=== PATIENT | female | born 1955 | race Caucasian/White ===

== ENCOUNTER → 2018-06-18 | Outpatient (CLI) | payer OTHER ==
[~2018-06-18] MED LIST: ALBIPROI; ALBU.083IS; ALBU90OI; ASPI81EC; CEPH500; CITA20 PO; DIVA500EC; DOCU100 PO; FLUSAL2505; FROV2.5; HYDACE5 PO; HYDMOR4 PO; Hair, Skin & N1 EACH PO; IBUP600 PO; LANS30EC; LORA1 PO; MONT10T; MONT10T PO; NAPR500 PO; Norco 5-325 Ta1 EACH PO; OMEP10ER; OMEP20ER PO; OXYACE5T; OXYACE5T PO; PANT40 PO; PENVK500; PROM25 PO; RANI150; RXHYDACE PO; THYR60; TOPI100 PO; VERA120ER PO; [UNRECOGNIZED DRUG - OTHER]
[2018-06-20 09:19] LABS: HPV 16 Negative (Negative); HPV 18 Negative (Negative); HPV OTHER HR TYPES Negative (Negative)
== END ==
LOC: LAB SHORT 09:48 → LAB SRC 09:48
PROVIDERS: Nurse Practitioner Family
DX: Z01.419 Encounter for gynecological examination (general) (routine) without abnormal findings (principal)
CPT/HCPCS: 87624; G0123

== ENCOUNTER 2018-08-20 23:08 | Emergency (ER) | payer OTHER ==
[~2018-08-20] VITALS: Ht 177.8 cm; Wt 61.2 kg
[2018-08-21] MEDS ORDERED: ALBU90OI INH (05:40)
== END 2018-08-21 00:15 | disposition left against medical advice (07) ==
LOC: ER 23:08
DX: R10.31 Right lower quadrant pain (principal); Z88.8 Allergy status to other drugs, medicaments and biological substances; Z79.899 Other long term (current) drug therapy; J44.9 Chronic obstructive pulmonary disease, unspecified; G43.909 Migraine, unspecified, not intractable, without status migrainosus; F17.290 Nicotine dependence, other tobacco product, uncomplicated
CPT/HCPCS: 93005; 93010; 99284-25; J7030; J7120

== ENCOUNTER 2018-08-21 01:39 | Inpatient (IN) | payer OTHER ==
[~2018-08-21] VITALS: Ht 177.8 cm; Wt 64.7 kg
[2018-08-21 02:45] LABS: BASOPHILS ABSOLUTE AUTO 0.01 K/mm3 (0.00-0.23); BASOPHILS PERCENT AUTO 0 % (0-2); Hematocrit 47.2 % (33.0-51.0); LYMPHOCYTES ABSOLUTE AUTO 0.52 K/mm3 (0.84-5.20); LYMPHOCYTES PERCENT AUTO 14 % (21-46); MONOCYTES ABSOLUTE AUTO 0.35 K/mm3 (0.16-1.47); MONOCYTES PERCENT AUTO 10 % (4-13); Mean Corpuscular HGB 31.8 pg (26.0-34.0); Mean Corpuscular HGB Conc 31.8 g/dL (31.5-36.5); Mean Corpuscular Volume 100 fL (80-100); Mean Platelet Volume 10.2 fL (9.1-12.4); Platelet Count 379 K/mm3 (150-400); RDW Coefficient Variation 11.9 % (11.7-14.2); RDW Standard Deviation 43.8 fL (35.1-46.3); Red Blood Cell Count 4.72 M/mm3 (3.80-5.20)
[2018-08-21 02:48] LABS: EOSINOPHILS PERCENT AUTO 0 % (0-6); IMMATURE GRAN ABSOLUTE AUTO 0.01 K/mm3 (0.00-0.10); IMMATURE GRAN PERCENT AUTO 0 % (0-1); NEUTROPHILS ABSOLUTE AUTO 2.71 K/mm3 (1.96-9.15); NEUTROPHILS PERCENT AUTO 75 % (41-73)
[2018-08-21 03:00] LABS: Albumin, Blood 3.2 g/dL (3.4-5.0); Bilirubin, Total 0.4 mg/dL (0.1-1.0); Bun/Creatinine Ratio 12.9 (12.0-20.0); Calcium, Blood 8.7 mg/dL (8.5-10.1); Creatinine, Blood 1.01 mg/dL (0.40-1.00); Globulin, Blood 3.2 g/dL (2.2-4.0); Potassium, Blood 3.7 mmol/L (3.5-5.5); Total Protein, Blood 6.4 g/dL (6.4-8.2)
[2018-08-21 03:04] LABS: BAND PERCENT MAN 20 % (0-8); BASOPHILS PERCENT MAN 0 % (0-2); EOSINOPHILS PERCENT MAN 0 % (0-6); LYMPHOCYTES PERCENT MAN 25 % (21-46); METAMYELOCYTE ABSOLUTE MAN 0.03 K/mm3 (0.00-0.00); METAMYELOCYTE PERCENT MAN 1 % (0-0); MONOCYTES ABSOLUTE MAN 0.28 K/mm3 (0.16-1.47); MONOCYTES PERCENT MAN 8 % (4-13); NEUTROPHILS ABSOLUTE MAN 2.37 K/mm3 (1.96-9.15); SEG NEUTROPHILS PERCENT MAN 46 % (41-73); TOTAL CELLS COUNTED 100
[2018-08-21 03:12] LABS: Source, Urine Clean Catch
[2018-08-21 03:14] LABS: Bilirubin, Urine Neg (Neg); Blood, Urine Neg (Neg); Glucose Qualitative, Urine Neg (Neg); Ketones, Urine Neg (Neg); Leukocyte Esterase, Urine 1+ (Neg); Nitrite, Urine Neg (Neg); Protein, Urine Neg (Neg); Specific Gravity, Urine 1.015 (1.003-1.022); Urobilinogen, Urine NORM (Normal)
[2018-08-21 03:16] LABS: Appearance, Urine Clear (Clear); Color, Urine Yellow (P-Yellow)
[2018-08-21 03:19] LABS: Bacteria Many /hpf; Red Blood Cells, Urine 0-2 /hpf (0-2); Squamous Epithelial Cells Rare /hpf (Few)
[2018-08-21 03:24] LABS: U Amphetamine Screen Not Detected; U Barbituate Screen Not Detected; U Benzodiazapine Screen Not Detected; U Buprenorphine Screen Not Detected; U Cannabinoids Screen Not Detected; U Cocaine Screen Not Detected; U Methadone Screen Not Detected; U Methamphetamine Screen Not Detected; U Opiates Screen Not Detected; U Oxycodone Screen Not Detected; U Phencyclidine Screen Not Detected; U Propoxyphene Screen Not Detected
[2018-08-21] MEDS ORDERED: ALBU90OI INH (05:40)
--- NOTE | 2018-08-21 06:02 | NUR ---
PT ARRIVED TO ICU 15 AT 0500 FROM ER VIA [facility]. PT SCOOTS SELF TO BED FROM [facility]. PT IS TACHYPNEIC. SATS IN THE 90'S ON 2LNC. DUSKY T/O BUT PT APPEARS POOR KEMPT WELL WITH DIRT ALL OVER HANDS. C/O 10/10 ABD PAIN. CANNOT HEAR BT'S. LS COARSE T/O, PT IS 1 PACK/DAY SMOKER. PT IS POOR HISTORIAN AT THE MOMENT DUE TO PAIN. WILL NOT ANSWER ALL QUESTIONS BUT DID STATE NAME AND . DR. JIMENEZ CONSULTED THIS AM SURGERY CONSULT.
--- NOTE | 2018-08-21 07:45 | NUR ---
RECEIVED REPORT FROM JESU GAY AND ASSUMED CARE OF PATIENT. PT IS TACHYPENIC AND SHALLOW BREATHING AT THIS TIME, B/P IS TRENDING DOWN, CURRENTLY 90/59. PT IS CRYING OUT IN PAIN. SURGICAL CALLED AND STATED SHE IS NEXT TO GO BACK, SO HOLDING OFF GIVING FENTYNAL. CALLED DR. JIMENEZ TO REPORT B/P CHANGES, HE STATED THAT HE WANTS A LITER LR BOLUS GIVEN. STARTED BOLUS. NC 2 LPM WITH O2 SAT 96%. PT STATES SHE CANNOT BREATHE, CALLED RT FOR BREATHING TREATEMENT. WILL CONTINUE TO MONITOR FOR TRANSFER TO SURGERY.
--- NOTE | 2018-08-21 08:00 | NUR ---
RECEIVED REPORT AND ASSUMED CARE OF PATIENT. HE IS INTUBATED AND SEDATED AT THIS TIME. PROPOFOL AT 30 MCK/KG/MIN AND PRECEDEX AT 0.7 MC/KG/HOUR. NSR IN 80'S AND B/P STABLE AT THIS TIME. VENT SETTINGS AT: 16/450/5/80%. ZAYAS CATH PATENT AND DRAINING TO GRAVITY. LR RUNNING AT 150ML/HOUR
--- NOTE | 2018-08-21 09:10 | NUR ---
PATIENT TAKEN TO OR BY DR. QUINTANA AND OR STAFF. NC WITH 2 LPM O2. LR RUNNING AT 150ML/HR. ZAYAS IN PLACE DRAINING TO GRAVITY. VITALS STABLE UPON DEPARTURE.
--- NOTE | 2018-08-21 09:53 | NUR ---
08/21/18 0953 Miranda De Leon PT HAD CENTRAL LINE PLACED PRIOR TO OR, X-RAY FOLLOWED. CATHETER IN PLACE PRIOR TO LEAVING ICU. PT. TRANSPORTED VIA BED TO OR. INTUBATED FOLLOWING ARRIVAL TO OR.
--- NOTE | 2018-08-21 09:57 | NUR ---
DR RODRIGUEZ IN TO PLACE CENTRAL LINE AROUND 8:15 FOR HYPOTENSIONS AND POTENTIAL FOR PRESSORS. CENTRAL LINE PLACED TO LEFT IJ, VERIFIED BY X-RAY AT BEDSIDE BY DR. RODRIGUEZ.
--- NOTE | 2018-08-21 11:29 | NUR ---
PT BACK TO UNIT WITH DR. QUINTANA AND OR STAFF. ACCEPTED PATIENT AND ASSUMED CARE. TEMP 99.7 UNDER ARMPIT. STARTED LEVOPHED TITRATED FOR AFFECT, CURRENTLY RUNNINNG AT 12 MCG/MIN. PT INTUBATED VENT SETTINGS ON AC: 14/460/5/FIO2 40% RR AT 14, O2 SAT 97%. NG TUBE IN PLACE TO LEFT NARES TO LOW-INTERMITTENT WALL SUCTION. MIDLINE ABDOMINAL INCISION TO WOUND-VAC, OSTOMY TO RIGHT UPPPER QUADRANT BEEFY RED APPEARANCE. PT REMAINS PARALYZED FROM ANETHESIA, WILL ASSESS WHEN PT AROUSES.
[2018-08-21 12:03] LABS: PCO2 Arterial 55.3 mmHg (35-45); PO2 Arterial 89.2 mmHg (80-100)
[2018-08-21 12:04] LABS: pH Blood Arterial 7.12 (7.35-7.45)
--- NOTE | 2018-08-21 12:29 | NUR ---
RT NENITA IN ROOM TO ADVANCE ET TUBE, ADVANE TO 24 CM AT THE LIP.
--- NOTE | 2018-08-21 13:00 | NUR ---
HYPOTENSIVE EVENT: DR RODRIGUEZ AT BEDSIDE PT HAS BEEN HYPOTENSIVE WITH SYSTOLIC PRESSURES IN 70-80'S. PROPOFOL ON STANDBY AND LEVOPHED CURRENTLY AT 20 MCG/MIN. BOLUS OF [address] RODRIGUEZ USING ULTRASOUND AT BEDSIDE TO VISUALIZE HEART. HR IS CURRENTLY AT 129, BP 84/58. AWAITING VASOPRESSIN FROM PHARMACY. ORDERED TO START VASOPRESSIN AND ADD EPI IF NEEDED. REQUESTED THAT WE CHECK ABDOMINAL PRESSURE IF URINE OUTPUT IS 0 THE REST OF THE SHIFT. WILL CONTINUE TO MONITOR.
[2018-08-21 13:26] LABS: Hematocrit 46.4 % (33.0-51.0); Mean Corpuscular HGB 31.5 pg (26.0-34.0); Mean Corpuscular HGB Conc 30.2 g/dL (31.5-36.5); Mean Platelet Volume 10.2 fL (9.1-12.4); Platelet Count 316 K/mm3 (150-400); RDW Standard Deviation 46.2 fL (35.1-46.3); Red Blood Cell Count 4.44 M/mm3 (3.80-5.20); White Blood Cell Count 6.53 K/mm3 (4.00-11.30)
[2018-08-21 13:33] LABS: PCO2 Arterial 48.6 mmHg (35-45); PO2 Arterial 137 mmHg (80-100)
[2018-08-21 13:38] LABS: Mean Corpuscular Volume 105 fL (80-100)
[2018-08-21 13:38] LABS: pH Blood Arterial 7.15 (7.35-7.45)
[2018-08-21 13:41] LABS: Magnesium, Blood 1.9 mg/dL (1.6-2.4); Troponin I 0.078 ng/mL (0.000-0.040)
[2018-08-21 13:45] LABS: Albumin/Globulin Ratio 0.8 (0.8-1.8); Bilirubin, Total 0.2 mg/dL (0.1-1.0); Calcium, Blood 7.2 mg/dL (8.5-10.1); Creatinine, Blood 1.33 mg/dL (0.40-1.00); Globulin, Blood 2.4 g/dL (2.2-4.0); Potassium, Blood 4.1 mmol/L (3.5-5.5)
[2018-08-21 13:46] LABS: Total Protein, Blood 4.4 g/dL (6.4-8.2)
[2018-08-21 14:11] LABS: BAND PERCENT MAN 20 % (0-8); BASOPHILS PERCENT MAN 0 % (0-2); EOSINOPHILS PERCENT MAN 0 % (0-6); LYMPHOCYTES ABSOLUTE MAN 0.58 K/mm3 (0.84-5.20); LYMPHOCYTES PERCENT MAN 9 % (21-46); METAMYELOCYTE ABSOLUTE MAN 1.24 K/mm3 (0.00-0.00); METAMYELOCYTE PERCENT MAN 19 % (0-0); MONOCYTES ABSOLUTE MAN 0.45 K/mm3 (0.16-1.47); MONOCYTES PERCENT MAN 7 % (4-13); MYELOCYTE ABSOLUTE MAN 0.91 K/mm3 (0.00-0.00); MYELOCYTE PERCENT MAN 14 % (0-0); NEUTROPHILS ABSOLUTE MAN 3.33 K/mm3 (1.96-9.15); SEG NEUTROPHILS PERCENT MAN 31 % (41-73); TOTAL CELLS COUNTED 100
[2018-08-21 16:56] LABS: Base Excess Venous 12.6 mmol/L; Bicarbonate Venous 14.9 mmol/L (24.0-30.0); PCO2 Venous 46 mmHg (38-42); PO2 Venous 61.9 mmHg (38-42); pH Blood Venous 7.16 (7.34-7.37)
--- NOTE | 2018-08-21 18:11 | NUR ---
SHIFT SUMMARY: PT IS CURRENTLY SEDATED WITH PROPOFOL 25 MCG/KG/MIN. PT IS REQUIRING FENTYNAL TO CONTROL PAIN ORDER FOR 25 MCG Q1HR NEEDED. PT IS INTUBATED, VENT SETTINGS ARE 22/460/5/FIO2 40%. PT HAS BEEN HYPOTENSIVE SINCE RETURN FROM OR, CURRENTLY RUNNING LEVOPHED @ 20MCG/MIN, AND VASOPRESSIN @ 2.4 ML/HR. NS-TKO AND BICARB @ 75 ML/HOUR. MID-LINE ABDOMINAL INCISION TO WOUNDVAC, NO OUTPUT IN CANISTER. COLOSTOMY BAG IN PLACE WITH NO OUTPUT, ILEOSTOMY APPEARS BEEFY RED. ZAYAS CATH IN PLACE DRAINING TO GRAVITY, HOWEVER, URINE OUTPUT HAS GREATLY DECREASED SINCE PATIENT RETURNED FROM OR. 50 ML URINE SINCE APPROXIMATELY 1100.
--- NOTE | 2018-08-21 21:02 | NUR ---
PT INTUBATED AND SEDATED WITH PROPOFOL. GAVE FENTANYL FOR PAIN. PT WAS PULLING LEGS UP IN BED AND WAS GAURDED WITH ABD. APPEARS COMFORTABLE NOW. TITRATING LEVOPHED. VASOPRESSIN ON WELL. BP IS IMPROVING AND OUTPUT IS IMPROVING. WOUND VAC TO MID-LEFT ABD WITH GOOD SEAL. NO OUTPUT YET. OSTOMY TO R ABD HAS SCANT AMT OF SANGUINOUS FLUID IN BAG. SON AT BEDSIDE NOW. DAUGHTER WENT HOME FOR THE NIGHT. OFFERING SUPPORT AND ANSWERING QUESTIONS PRN.
[2018-08-22 05:58] LABS: Hematocrit 36.4 % (33.0-51.0); Mean Corpuscular HGB 33.1 pg (26.0-34.0); Mean Platelet Volume 10.7 fL (9.1-12.4); Platelet Count 221 K/mm3 (150-400); RDW Standard Deviation 44.9 fL (35.1-46.3); Red Blood Cell Count 3.63 M/mm3 (3.80-5.20); White Blood Cell Count 15.68 K/mm3 (4.00-11.30)
[2018-08-22 05:59] LABS: Mean Corpuscular Volume 100 fL (80-100)
[2018-08-22 06:03] LABS: Albumin, Blood 1.6 g/dL (3.4-5.0); Albumin/Globulin Ratio 0.7 (0.8-1.8); Bilirubin, Total 0.3 mg/dL (0.1-1.0); Bun/Creatinine Ratio 21.4 (12.0-20.0); Creatinine, Blood 1.17 mg/dL (0.40-1.00); Globulin, Blood 2.4 g/dL (2.2-4.0); Phosphorus, Blood 3.9 mg/dL (2.5-4.9); Potassium, Blood 3.7 mmol/L (3.5-5.5)
[2018-08-22 06:06] LABS: BAND PERCENT MAN 30 % (0-8); BASOPHILS PERCENT MAN 0 % (0-2); EOSINOPHILS ABSOLUTE MAN 0.15 K/mm3 (0.00-0.68); EOSINOPHILS PERCENT MAN 1 % (0-6); LYMPHOCYTES ABSOLUTE MAN 1.72 K/mm3 (0.84-5.20); LYMPHOCYTES PERCENT MAN 11 % (21-46); METAMYELOCYTE ABSOLUTE MAN 0.47 K/mm3 (0.00-0.00); METAMYELOCYTE PERCENT MAN 3 % (0-0); MONOCYTES ABSOLUTE MAN 1.41 K/mm3 (0.16-1.47); MONOCYTES PERCENT MAN 9 % (4-13); MYELOCYTE ABSOLUTE MAN 0.15 K/mm3 (0.00-0.00); MYELOCYTE PERCENT MAN 1 % (0-0); NEUTROPHILS ABSOLUTE MAN 11.76 K/mm3 (1.96-9.15); SEG NEUTROPHILS PERCENT MAN 45 % (41-73); TOTAL CELLS COUNTED 100
--- NOTE | 2018-08-22 06:19 | NUR ---
SUMMARY PT INTUBATED AND SEDATED WITH PROPOFOL. PT WILL OPEN EYE'S AND NOD YES OR NO TO QUESTIONS. PURPOSFULLY MOVES HANDS TOWARDS ETT WHEN UNRESTRAINED. TITRATING LEVOPHED DOWN. WOUND VAC IN PLACE WITH GOOD SEAL. NO DRAINAGE FROM WOUND VAC. COLOSTOMY ONLY HAS SCANT AMT OF SANGUINOUS FLUID. HAS HAD TEMP WITH TMAX 102.0. GAVE TYLENOL, TOOK COVERS OFF, AND PLACED FAN AT BEDSIDE. UPDATED THE DAUGHTER YENNI THIS AM VIA PHONE.
--- NOTE | 2018-08-22 07:15 | NUR ---
START OF SHIFT NOTE: PATIENT CONTINUOUS ON MECHANICAL VENTILATION, ABLE TO OPEN EYES TO SPEECH AND FOLLOW SOME COMMANDS, PROPOFOL AT 35, BICARB INFUSING, WOUND VAC INTACT, MINIMAL AMOUNT OF DRAINAGE, OSTOMY ON RIGHT LOWER QUADRANT HAS NO DRAINAGE, ZAYAS CATHETER IN PLACE, PATIENT ALSO ON LEVOPHED AND VASOPRESSING, SBPs IN UPPER 90s AND 110s, ORAL CARE PROVIDED, RT IN TO SEE PATIENT, DR. SIMMONS IN TO SEE PATIENT, NO NEW ORDERS RECEIVED, WILL CONTINUE TO MONITOR.
--- NOTE | 2018-08-22 09:05 | NUR ---
CALLED DR. SIMMONS ABOUT PATIENT BEING ON DAILY TOPAMAX, DR. SIMMONS ASKED THIS RN TO CALL DR. JIMENEZ, AND CLARIFY IF IT IS OK TO GIVE TOPAMX CRUSHED VIA OG TUBE.
--- NOTE | 2018-08-22 09:37 | NUR ---
CALLED DR. JIMENEZ AND SPOKE WITH HIM ABOUT ADMINISTERING TOPAMAX SEIZURE MEDICATION VIA OG TUBE, DR. JIMENEZ STATED "THAT IS FINE, OK WITH ME", WILL ORDER TOPAMAX PER DR. SIMMONS'S VERBAL ORDER AND ADMINISTER CRUSHED VIA OG TUBE.
--- NOTE | 2018-08-22 13:08 | NUR ---
VASOPRESSIN TURNED OFF, LEVOPHED DOWN TO 2, SBPs ARE HOLDING IN 110s AND 120s, SON AT BEDSIDE UPDATE PROVIDED, WILL CONTINUE TO MONITOR.
--- NOTE | 2018-08-22 17:59 | NUR ---
SHIFT SUMMARY NOTE: PATIENT ON MECHANICAL VENTILATION, SETTINGS: 22/5 VT 460 AND FiO2 30 % SEDATED WITH PROPOFOL AT 40 MCG, ABLE TO OPEN EYES AND MOVE EXTREMITIES, TRYING TO MOUTH WORDS, ABLE TO FOLLOW SOME COMMANDS, ZAYAS CATHETER IN PLACE DRAINING ADEQUATE AMOUNTS OF DARK YELLOW URINE, WOUND VAC IN PLACE, NO DRAINAGE, OSTOMY ON RLQ, NO OUTPUT YET, PATIENT HAS NG TUBE DRAINING SMALL AMOUNT OF BROWNISH LIQUID, NGT WAS CLAMPED FOR 30 MINUTES AFTER ADMINISTERING 200 MG OF TOPAMAX, OK TO GIVE VIA NG TUBE PER DR. JIMENEZ, SON AND DAUGHTER AT BEDSIDE, UPDATES PROVIDED, FOR DETAILS SEE SHIFT ASSESSMENT DOCUMENTATION, WILL CONTINUE TO MONITOR AND GIVE REPORT TO ONCOMING MACHINE CARTON MARKER.
--- NOTE | 2018-08-22 19:15 | NUR ---
ASSUMED CARE ASSUMED CARE OF PATIENT. REMAINS INTUBATED- AC 22, TB 460, PEEP 5, FIO2 30%. RESP RATE 22-25. SEDATED WITH PROPOFOL @ 50MCG/KG/MIN. OPENS EYES TO STIMULI. MOVES ALL EXTREMITIES SPONTANEOUSLY AND FOLLOWS SOME SIMPLE COMMANDS. BILATERAL SOFT WRIST RESTRAINTS IN PLACE TO PREVENT SELF-EXTUBATION. TITO, 2MM, SLIGHTLY SLUGGISH. FACIAL GRIMACING NOTED AND PT APPEARS RESTLESS- WILL TREAT PAIN/DISCOMFORT PER ORDER. MONITOR SHOWS NSR-ST, RATE 95-100s. LEFT NARE NG TO LIS WITH SMALL AMOUNT BROWNISH-GREE DRAINAGE. COLOSTOMY NOTED TO RIGHT ABDOMEN WITH SCANT SEROSANGUINOUS DRAINAGE. STOMA IS PINKISH-BROWN IN COLOR. MID-LINE ABDOMINAL INCISION WITH WOUND VAC IN PLACE. ZAYAS PATENT- DRAINING CLEAR YELLOW URINE. PAS TO BLE. D5 WITH 3AMPS BICARB INFUSING AT 100CC/HR PER ORDER. NS TKO. DAUGHTER AT BEDSIDE. SEE SHIFT ASSESSMENT FOR FULL ASSESSMENT.
--- NOTE | 2018-08-22 21:00 | NUR ---
HYPOTENSION BP 82/48(58). PROPOFOL DECREASED TO 40MCG/KG/MIN AT THIS TIME.
--- NOTE | 2018-08-22 21:30 | NUR ---
BP BP 80/52(60). LEVOPHED RESTARTED @ 2MCG/MIN AT THIS TIME.
--- NOTE | 2018-08-23 | NUR ---
ASSUMED CARE REPORT FROM TRISH NAILS. PT INTUBATED AND SEDATED CURRENT VENT SETTINGS OF AC22/460/30%/5 AND SEDATION VIA PROPOFOL. LEVOPHED RESTARTED AT 2130 D/T MAP <60, CURRENTLY AT 4MCG/MIN. WOUND VAC TO MIDLINE INCISION PRESENT, OSOMY SITE IS A BROWNISH-PINK COLOR AND BAG HAS A SMALL AMOUNT OF CLEAR YELLOW FLUID PRESENT. PROPOFOL AT 40MCG/KG/MIN, BICARB GTT AT 100ML/HR. PLAN FOR SBT IN AM.
[2018-08-23 04:11] LABS: Hematocrit 32.2 % (33.0-51.0); Mean Corpuscular HGB 32.7 pg (26.0-34.0); Mean Corpuscular HGB Conc 34.2 g/dL (31.5-36.5); Mean Platelet Volume 10.5 fL (9.1-12.4); Platelet Count 177 K/mm3 (150-400); RDW Coefficient Variation 11.9 % (11.7-14.2); RDW Standard Deviation 42.3 fL (35.1-46.3); Red Blood Cell Count 3.36 M/mm3 (3.80-5.20); White Blood Cell Count 15.67 K/mm3 (4.00-11.30)
[2018-08-23 04:13] LABS: Mean Corpuscular Volume 96 fL (80-100)
[2018-08-23 04:30] LABS: Alanine Aminotransfer (ALT/SGP 21 U/L (12-78); Albumin, Blood 1.5 g/dL (3.4-5.0); Albumin/Globulin Ratio 0.5 (0.8-1.8); Alk Phos 58 U/L (50-136); Anion Gap 6 mmol/L (6-16); Aspartate Aminotrans (AST/SGOT 43 U/L (12-37); Bilirubin, Total 0.3 mg/dL (0.1-1.0); Blood Urea Nitrogen 20 mg/dL (8-24); Bun/Creatinine Ratio 21.7 (12.0-20.0); CO2, Blood 33 mmol/L (21-32); Calcium, Blood 7.2 mg/dL (8.5-10.1); Chloride, Blood 101 mmol/L (98-108); Creatinine, Blood 0.92 mg/dL (0.40-1.00); Glomerular Filtration Rate >60 (60-); Glucose, Blood 102 mg/dL (70-99); Magnesium, Blood 2.1 mg/dL (1.6-2.4); Phosphorus, Blood 2.6 mg/dL (2.5-4.9); Potassium, Blood 2.9 mmol/L (3.5-5.5); Sodium, Blood 140 mmol/L (136-145); Total Protein, Blood 4.5 g/dL (6.4-8.2)
[2018-08-23 04:32] LABS: BAND PERCENT MAN 26 % (0-8); BASOPHILS PERCENT MAN 0 % (0-2); EOSINOPHILS PERCENT MAN 0 % (0-6); LYMPHOCYTES ABSOLUTE MAN 0.62 K/mm3 (0.84-5.20); LYMPHOCYTES PERCENT MAN 4 % (21-46); METAMYELOCYTE ABSOLUTE MAN 0.31 K/mm3 (0.00-0.00); METAMYELOCYTE PERCENT MAN 2 % (0-0); MONOCYTES ABSOLUTE MAN 1.09 K/mm3 (0.16-1.47); MONOCYTES PERCENT MAN 7 % (4-13); NEUTROPHILS ABSOLUTE MAN 13.63 K/mm3 (1.96-9.15); SEG NEUTROPHILS PERCENT MAN 61 % (41-73); TOTAL CELLS COUNTED 100
--- NOTE | 2018-08-23 04:53 | NUR ---
SBT/SEDATION VACATION PROPOFOL AND LEVOPHED TITRATED TO OFF POST FENTANYL ADMINISTRATION IN ANTICIPATION OF SBT. PT TOLERATING BUT HAS MADE ATTEMPTS TO SIT UP AND GRAB SUCTION TUBING OR ETT TUBING. PLAN TO RESEDATE ONCE COMPLETE DUE TO ANXIETY.
[2018-08-23 05:04] LABS: PCO2 Arterial 41.7 mmHg (35-45); PO2 Arterial 72.2 mmHg (80-100); pH Blood Arterial 7.52 (7.35-7.45)
[2018-08-23 05:40] LABS: Base Excess Venous 11.8 mmol/L; PCO2 Venous 42.6 mmHg (38-42); PO2 Venous 35.9 mmHg (38-42); pH Blood Venous 7.52 (7.34-7.37)
--- NOTE | 2018-08-23 06:31 | NUR ---
SHIFT SUMMARY PT REMAINS INTUBATED, NO CHANGE TO PREVIOUS SETTINGS. PROPOFOL RESUMED AT 35MCG/KG/MIN AND LEVOPHED REMAINS OFF POST SBT. CALL PLACED POST LABS TO DR RODRIGUEZ AND BICARB GTT STOPPED AND KCL PENDING. NG REMAINS TO LIS, UOP >1000 FOR SHIFT.
--- NOTE | 2018-08-23 08:00 | NUR ---
RECEIVED REPORT AND ASSUMED CARE OF PATIENT. SHE IS INTUBATED AND SEDATED AT THIS TIME. VENT SETTINGS ARE 22/460/5/30%. PROPOFOL CONTINUING AT 35 MCG/KG/MIN. WOUND VAC IS RUNNING AND NO DRAINAGE NOTED IN PUMP. COLOSTOMY BAG HAS SCANT AMOUNT OF BROWNISH FLUID. COLOR OF ILEOSTOMY IS GRAYISH BROWN IN COLOR. MADE DR SIMMONS, DR. RODRIGUEZ AWARE SEE PRIOR NOTE ON THIS ISSUE. PT IS RESPONSIVE TO PAINFUL STIMULUS AND IS UNCOMFORTABLE, USED FENTYNAL TO TREAT PAIN.
--- NOTE | 2018-08-23 08:27 | NUR ---
DR SIMMONS IN TO SEE THE PATIENT. INFORMED HIM OF CONCERNS WITH OSTOMY SITE LOOKING GRAYISH BROWN IN COLOR. HE AGREED AND CONTACTED DR. JIMENEZ WITH CONCERNS. DR JIMENEZ STATES HE WILL BE IN TO SEE PATIENT.
--- NOTE | 2018-08-23 08:40 | NUR ---
DR RODRIGUEZ IN TO SEE PATIENT, MADE AWARE OF OSTOMY COLOR AND CONCERNS. DISCUSSED POC SHE IS GOING TO WAIT TO CONSIDER EXTUBATING UNTIL SURGICAL CONCERNS ARE ADDRESSED. CHANGED RR TO 16 ON VENT.
--- NOTE | 2018-08-23 11:24 | NUR ---
AFTER MEDICATION ADMINISTRATION, NG TURNED BACK TO LOW-INT SUCTION. LARGE VOLUME NOTED IN TUBING, TURNED TO LOW-CONTINUOUS SUCTION. IMMEDIATE RETURN OF 250 ML DARK GREEN LIQUID. LIQUID NOTED TO TURN TO DARK RED. PLACED BACK ON LOW-INTERMITTENT SUCTION. PLAN TO DISCUSS WITH DR. JIMENEZ.
--- NOTE | 2018-08-23 13:00 | NUR ---
CALLED DR JIMENEZ TO MAKE AWARE OF INCREASED GI OUTPUT TO NG TUBE AND DISCUSS THE ILLEOSTOMY SITE. HE STATED HE WILL ROUND ON HER THIS AFTERNOON.
[2018-08-23 14:04] LABS: Base Excess Venous 7.3 mmol/L; Bicarbonate Venous 30.6 mmol/L (24.0-30.0); PCO2 Venous 38.9 mmHg (38-42); PO2 Venous 70.2 mmHg (38-42)
--- NOTE | 2018-08-23 14:33 | NUR ---
DR JIMENEZ IN TO SEE PATIENT. HE STATES THAT THE ILEOSTOMY LOOKS OKAY, HE SAID THAT HE THINKS THE TOP LAYER OF TISSUE WILL SLOUGH OFF AND LEAVE HEALTHY SKIN. HE ASKED FOR TPN TO BE STARTED.
[2018-08-23 14:45] LABS: Vancomycin, Trough 7.1 ug/mL (5.0-10.0)
[2018-08-23 14:46] LABS: Anion Gap 6 mmol/L (6-16); Blood Urea Nitrogen 17 mg/dL (8-24); Bun/Creatinine Ratio 19.8 (12.0-20.0); CO2, Blood 30 mmol/L (21-32); Calcium, Blood 7.6 mg/dL (8.5-10.1); Chloride, Blood 105 mmol/L (98-108); Creatinine, Blood 0.86 mg/dL (0.40-1.00); Glomerular Filtration Rate >60 (60-); Glucose, Blood 73 mg/dL (70-99); Potassium, Blood 3.1 mmol/L (3.5-5.5); Sodium, Blood 141 mmol/L (136-145)
--- NOTE | 2018-08-23 18:16 | NUR ---
SHIFT SUMMARY: PT HAS CONTINUED TO BE SEDATED AND INTUBATED THROUGHOUT THE SHIFT. PROPOFOL CURRENTLY AT 35 MCG/KG/MIN. VENT SETTINGS: AC: 15/460/5/30% PT RESPONDEDING WELL TO FENTYNAL DRIP, CURRENTLY RUNNING AT 25 MCG/HOUR. DAUGHTER AT BEDSIDE DURING THE DAY. WILL CONTINUE TO MONITOR AND GIVE REPORT TO GAYATHRI NAILS.
--- NOTE | 2018-08-24 00:40 | NUR ---
RESTLESSNESS: PT GREW INCREASINGLY RESTLESS OVER PAST HOUR. PT REPOSITIONED, SUCTIONED, AND ORAL CARE PROVIDED. PT CONTINUED WITH STACKED BREATHS AND TRYING TO REACH UP TO TUBE WITH HANDS. PT MEDICATED WITH FENTNYL 25mcg IVP AND PROPOFOL INCREASED TO 40mcg/kg/min. WILL CONTINUE TO MONITOR.
--- NOTE | 2018-08-24 02:13 | NUR ---
HOSPITALIST: NOTIFIED RE: HYPOTENSION AND INCREASED SEDATION. UPDATED ON FLUID INTAKE AND I&O. NEW ORDER FOR NS 250 mL BOLUS. IF HYPOTENSION CONTINUES NOTIFY FUEL CELL REPAIRER.
--- NOTE | 2018-08-24 03:04 | NUR ---
RESPOND WELL TO FLUID BOLUS: PT GIVEN NS 250mL BOLUS. BP NOW LOW 100'S/60. PT MORE RELAXED ON PROPOFOL AT 40mcg AND FENTANYL REMAINING AT 25mcg. WILL CONTINUE TO MONITOR.
[2018-08-24 03:39] LABS: Base Excess Venous 5.8 mmol/L; Bicarbonate Venous 29.4 mmol/L (24.0-30.0); PCO2 Venous 36.2 mmHg (38-42); PO2 Venous 91.6 mmHg (38-42); pH Blood Venous 7.51 (7.34-7.37)
[2018-08-24 03:44] LABS: Hematocrit 28.6 % (33.0-51.0); Hemoglobin 9.4 g/dL (11.5-16.0); Mean Corpuscular HGB 32.5 pg (26.0-34.0); Mean Corpuscular HGB Conc 32.9 g/dL (31.5-36.5); Mean Platelet Volume 11.1 fL (9.1-12.4); Platelet Count 183 K/mm3 (150-400); RDW Coefficient Variation 12.4 % (11.7-14.2); RDW Standard Deviation 45.1 fL (35.1-46.3); Red Blood Cell Count 2.89 M/mm3 (3.80-5.20); White Blood Cell Count 17.22 K/mm3 (4.00-11.30)
[2018-08-24 03:46] LABS: Mean Corpuscular Volume 99 fL (80-100)
[2018-08-24 04:01] LABS: Anion Gap 4 mmol/L (6-16); BAND PERCENT MAN 12 % (0-8); BASOPHILS PERCENT MAN 0 % (0-2); Blood Urea Nitrogen 18 mg/dL (8-24); CO2, Blood 30 mmol/L (21-32); Calcium, Blood 7.5 mg/dL (8.5-10.1); Chloride, Blood 109 mmol/L (98-108); Creatinine, Blood 0.78 mg/dL (0.40-1.00); EOSINOPHILS PERCENT MAN 0 % (0-6); Glomerular Filtration Rate >60 (60-); Glucose, Blood 120 mg/dL (70-99); LYMPHOCYTES ABSOLUTE MAN 0.86 K/mm3 (0.84-5.20); LYMPHOCYTES PERCENT MAN 5 % (21-46); MONOCYTES ABSOLUTE MAN 0.68 K/mm3 (0.16-1.47); MONOCYTES PERCENT MAN 4 % (4-13); Magnesium, Blood 2.1 mg/dL (1.6-2.4); NEUTROPHILS ABSOLUTE MAN 15.67 K/mm3 (1.96-9.15); Phosphorus, Blood 1.8 mg/dL (2.5-4.9); Potassium, Blood 3.4 mmol/L (3.5-5.5); SEG NEUTROPHILS PERCENT MAN 79 % (41-73); Sodium, Blood 143 mmol/L (136-145); TOTAL CELLS COUNTED 100; Triglycerides 125 mg/dL (30-160)
--- NOTE | 2018-08-24 04:22 | NUR ---
SEDATION OFF AT 0408. PT NODDED HEAD YES WHEN EXPLAINED. PT TOLERATING WELL THUS FAR.
--- NOTE | 2018-08-24 04:28 | NUR ---
RT AT BEDSIDE FOR SEDATION VACATION AND BREATHING TRIAL.
--- NOTE | 2018-08-24 05:01 | NUR ---
BREATHING TRIAL COMPLETED AT 0450. PT TOLERATED WELL BUT FINISHED BY FLIPPING OFF THE RT WITH HER MIDDLE FINGER.
--- NOTE | 2018-08-24 07:30 | NUR ---
RECEIVED REPORT AND ASSUMED CARE OF PATIENT. PT IS INTUBATED AND SEDATED AT THIS TIME. PROPOFOL RUNNING AT 40 MCG/KG/MIN. FENT DRIP CONTINUES AT 12.5 MCG/HR. VENT SETTINGS ARE: 15/460/5/30% RR 17.
--- NOTE | 2018-08-24 19:43 | NUR ---
CHANGE OF SHIFT: BEDSIDE REPORT FROM BORA RN AND FANG NAILS. NENITA RT AT BEDSIDE FOR ROUTINE ROUNDING. VENT SETTINGS REMAIN 15; 460; PEEP 5.0; AND 30%. PT VSS AND APPEARS COMFORTABLE SEDATED WITH PROPOFOL AND FENTANYL. PT MOVING ALL EXTREMITIES LIGHTLY IF PURPOSEFUL TURNING SELF. PT WITH KNEES UP AND FEET RESTING ON MATTRESS. SKIN PWD. ANGELIQUE. LS (SEE FULL ASSESSMENT). COLOSTOMY AND WOUND VAC UNCHANGED FROM PREVIOUS NOC SHIFT. WILL CONTINUE TO MONITOR, TURN Q2 C/ RESTRAINT ASSESSMENT.
--- NOTE | 2018-08-25 03:59 | NUR ---
BREATHING TRIAL STARTED NOW.
[2018-08-25 04:30] LABS: BASOPHILS ABSOLUTE AUTO 0.03 K/mm3 (0.00-0.23); BASOPHILS PERCENT AUTO 0 % (0-2); Hematocrit 26.9 % (33.0-51.0); Hemoglobin 8.5 g/dL (11.5-16.0); LYMPHOCYTES ABSOLUTE AUTO 1.13 K/mm3 (0.84-5.20); LYMPHOCYTES PERCENT AUTO 8 % (21-46); MONOCYTES ABSOLUTE AUTO 1.05 K/mm3 (0.16-1.47); MONOCYTES PERCENT AUTO 7 % (4-13); Mean Corpuscular HGB 32.1 pg (26.0-34.0); Mean Corpuscular HGB Conc 31.6 g/dL (31.5-36.5); Platelet Count 177 K/mm3 (150-400); RDW Standard Deviation 48.8 fL (35.1-46.3); Red Blood Cell Count 2.65 M/mm3 (3.80-5.20); White Blood Cell Count 14.35 K/mm3 (4.00-11.30)
[2018-08-25 04:32] LABS: EOSINOPHILS ABSOLUTE AUTO 0.01 K/mm3 (0.00-0.68); EOSINOPHILS PERCENT AUTO 0 % (0-6); IMMATURE GRAN ABSOLUTE AUTO 0.08 K/mm3 (0.00-0.10); IMMATURE GRAN PERCENT AUTO 1 % (0-1); Mean Corpuscular Volume 102 fL (80-100); NEUTROPHILS ABSOLUTE AUTO 12.05 K/mm3 (1.96-9.15); NEUTROPHILS PERCENT AUTO 84 % (41-73)
--- NOTE | 2018-08-25 04:32 | NUR ---
PT AWAKE. POINTED TO EYES NODDING YES TO WEAR HER GLASSES. PT TRYING TO USE PICTURE BOARD TO COMMUNICATE BUT NOT ABLE TO. PT NODDED WHEN ASKED IF WANTS TUBE OUT. PT NODDED TO PAIN. FENTANYL GTT CONTINUES TO INFUSE BUT ONLY AT 12.5mcg/hr. BREATHING TRIAL ENDING. WILL RESUME SEDATION WITH PROPOFOL.
[2018-08-25 04:44] LABS: PCO2 Arterial 44.8 mmHg (35-45); PO2 Arterial 52.2 mmHg (80-100); pH Blood Arterial 7.44 (7.35-7.45)
--- NOTE | 2018-08-25 04:50 | NUR ---
PT CONTINUING TO SLEEP. VSS. CIWA <4 AT THIS TIME.
[2018-08-25 04:56] LABS: Alanine Aminotransfer (ALT/SGP 27 U/L (12-78); Albumin, Blood 1.4 g/dL (3.4-5.0); Albumin/Globulin Ratio 0.4 (0.8-1.8); Alk Phos 80 U/L (50-136); Anion Gap 6 mmol/L (6-16); Aspartate Aminotrans (AST/SGOT 31 U/L (12-37); Bilirubin, Total 0.3 mg/dL (0.1-1.0); Blood Urea Nitrogen 15 mg/dL (8-24); Bun/Creatinine Ratio 21.9 (12.0-20.0); CO2, Blood 30 mmol/L (21-32); Calcium, Blood 7.8 mg/dL (8.5-10.1); Chloride, Blood 113 mmol/L (98-108); Creatinine, Blood 0.68 mg/dL (0.40-1.00); Globulin, Blood 3.5 g/dL (2.2-4.0); Glomerular Filtration Rate >60 (60-); Glucose, Blood 107 mg/dL (70-99); Magnesium, Blood 2.1 mg/dL (1.6-2.4); Phosphorus, Blood 2.4 mg/dL (2.5-4.9); Potassium, Blood 3.4 mmol/L (3.5-5.5); Sodium, Blood 149 mmol/L (136-145); Total Protein, Blood 4.9 g/dL (6.4-8.2)
--- NOTE | 2018-08-25 09:57 | NUR ---
DR. PRATIK CHRISTIE ROUNDED ON PT. UPDATED ON NG OUTPUT, PT CONDITION. DR KIRBY CONTINUE WITH CURRENT CARE FROM SURGICAL STANDPOINT, NO NEW ORDERS AT THIS TIME. STATES OSTOMY LOOKS GOOD.
--- NOTE | 2018-08-25 10:25 | NUR ---
RECEIVED REPORT AND ASSUMED CARE OF PATIENT. PT IS INTUBATED AND SEDATED AT THIS TIME PROPOFOL WAS RUNNING AT 30 MCG/KG/MIN WHEN FIRST CAME ON SHIFT, HOWEVER SHE BEGAN TO GET INCREASINGLY RESTLESS, INCREASED PROPOFOL TO 35 MCG/KG/MIN. FENTYNAL DRIP RUNNING AT 25 MCG/HR AT THIS TIME. VENT SETTINGS: 15/460/5/30%, RR 15. PT VERY REACTIVE TO PAINFUL STIMULI WITH CARE, GAVE A FENYTNAL PUSH TO ADDRESS BREAKTHROUGH PAIN.
--- NOTE | 2018-08-25 11:35 | NUR ---
SET UP SAFE SET FOR BLOOD DRAWS.
[2018-08-25 13:20] LABS: Magnesium, Blood 1.8 mg/dL (1.6-2.4); Phosphorus, Blood 3.1 mg/dL (2.5-4.9); Potassium, Blood 3.6 mmol/L (3.5-5.5)
[2018-08-25 13:22] LABS: Hemoglobin 8.5 g/dL (11.5-16.0)
--- NOTE | 2018-08-25 18:23 | NUR ---
SHIFT SUMMARY PATIENT CONTINUES TO BE INTUBATED AND SEDATED THROUGHOUT THE SHIFT. PROPOFOL RUNNING AT 40 MCG/KG/MIN, FENTYNAL DRIP CONTINUES AT 25 MCG/HOUR. PT HAS REQUIRED ADDITIONAL FENTYNAL PUSHES FOR BREAKTHROUGH PAIN DURING THIS SHIFT. VENT SETTINGS ARE 15/460/5/30% RR BETWEEN 15-25'S. DAUGHTER AT BEDSIDE FOR PART OF THE DAY. WILL CONTINUE TO MONITOR AND GIVE REPORT TO GAYATHRI RN.
--- NOTE | 2018-08-25 18:29 | NUR ---
WHEN DRAINING COLOSTOMY BAG NOTICED DEVICE WAS PULLING UP FROM PATIENT SKIN. REMOVED THE DEVICE AND CLEANED AROUND STOMA CAREFULLY WITH WARM WATER AND SOFT CLOTHS. REMOVED DRIED BLOOD AND MUCOUS FROM AROUND STOMA. STOMA COLOR HAS IMPROVED TO BRIGHT RED. NEW DEVICE PLACED OVER STOMA AND COLOSTOMY BAG ATTACHED.
--- NOTE | 2018-08-25 19:33 | NUR ---
BEDSIDE REPORT FROM BORA RN. PT LYING WITH EYES HALF OPEN. PT OPENS HAND TOWARDS THIS RN. PT COMMUNICATING WITH YES AND NO QUESTIONS. PT NODDED, "YES" TO HAVING PAIN AND NODDED TO PAIN BEING IN HER BACK AND STOMACH. PT SHOOK HEAD TO BEING IN AN UNCOMFORTABLE POSITION. VSS. LS CLEAR. PT MEDICATED WITH FENTANYL 25mcg IVP AND FENTANYL gtt INCREASED TO 37.5mcg/hr. CURRENTLY PT LYING WITH EYES CLOSED HR DOWN TO 95 FROM 101, SATS 100%, BP STABLE. SEE CHART FOR FURTHER ASSESSMENT. WILL CONTINUE TO MONITOR.
[2018-08-26 03:48] LABS: BASOPHILS ABSOLUTE AUTO 0.02 K/mm3 (0.00-0.23); BASOPHILS PERCENT AUTO 0 % (0-2); EOSINOPHILS ABSOLUTE AUTO 0.06 K/mm3 (0.00-0.68); EOSINOPHILS PERCENT AUTO 1 % (0-6); Hematocrit 27.5 % (33.0-51.0); Hemoglobin 8.5 g/dL (11.5-16.0); Mean Corpuscular HGB 32.3 pg (26.0-34.0); Mean Corpuscular HGB Conc 30.9 g/dL (31.5-36.5); Mean Platelet Volume 10.2 fL (9.1-12.4); Platelet Count 189 K/mm3 (150-400); RDW Coefficient Variation 13.5 % (11.7-14.2); RDW Standard Deviation 51.5 fL (35.1-46.3); Red Blood Cell Count 2.63 M/mm3 (3.80-5.20); White Blood Cell Count 8.91 K/mm3 (4.00-11.30)
[2018-08-26 03:52] LABS: IMMATURE GRAN PERCENT AUTO 2 % (0-1); LYMPHOCYTES ABSOLUTE AUTO 1.65 K/mm3 (0.84-5.20); LYMPHOCYTES PERCENT AUTO 19 % (21-46); MONOCYTES ABSOLUTE AUTO 0.92 K/mm3 (0.16-1.47); MONOCYTES PERCENT AUTO 10 % (4-13); Mean Corpuscular Volume 105 fL (80-100); NEUTROPHILS ABSOLUTE AUTO 6.06 K/mm3 (1.96-9.15); NEUTROPHILS PERCENT AUTO 68 % (41-73)
[2018-08-26 04:03] LABS: Anion Gap 7 mmol/L (6-16); Blood Urea Nitrogen 18 mg/dL (8-24); Bun/Creatinine Ratio 28.1 (12.0-20.0); CO2, Blood 27 mmol/L (21-32); Calcium, Blood 7.7 mg/dL (8.5-10.1); Chloride, Blood 118 mmol/L (98-108); Creatinine, Blood 0.64 mg/dL (0.40-1.00); Glomerular Filtration Rate >60 (60-); Glucose, Blood 91 mg/dL (70-99); Magnesium, Blood 2.1 mg/dL (1.6-2.4); Phosphorus, Blood 3.2 mg/dL (2.5-4.9); Potassium, Blood 3.6 mmol/L (3.5-5.5); Sodium, Blood 152 mmol/L (136-145)
[2018-08-26 04:06] LABS: BAND PERCENT MAN 1 % (0-8); BASOPHILS PERCENT MAN 0 % (0-2); EOSINOPHILS PERCENT MAN 0 % (0-6); LYMPHOCYTES PERCENT MAN 18 % (21-46); METAMYELOCYTE ABSOLUTE MAN 0.08 K/mm3 (0.00-0.00); METAMYELOCYTE PERCENT MAN 1 % (0-0); MONOCYTES ABSOLUTE MAN 1.06 K/mm3 (0.16-1.47); MONOCYTES PERCENT MAN 12 % (4-13); NEUTROPHILS ABSOLUTE MAN 6.14 K/mm3 (1.96-9.15); SEG NEUTROPHILS PERCENT MAN 68 % (41-73); TOTAL CELLS COUNTED 100
[2018-08-26 05:33] LABS: PCO2 Arterial 40.4 mmHg (35-45); PO2 Arterial 78.8 mmHg (80-100); pH Blood Arterial 7.42 (7.35-7.45)
--- NOTE | 2018-08-26 05:53 | NUR ---
SHIFT SUMMARY: PT REQUIRED AN INCREASE IN FENTANYL gtt THIS NOC SHIFT. AT THE START OF SHIFT PT COMMUNICATED THAT SHE WAS IN PAIN. WITH THE INCREASE IN FENTANYL AND PROPOFOL, PT RESTED QUIETLY T/O NOC WHEN NOT BEING DISTURBED. THIS AM PT REACHED OUT AND HELD THIS RN'S HAND WHILE BEING TOLD THAT HER DAUGHTER HAD JUST CALLED AND STATED WILL BE IN TO SEE HER ABOUT THREE O'CLOCK TODAY. PT ENCOURAGED TO DO WELL TODAY AND SHE HAD HARD WORK TO DO, PT WAS ENCOURAGE TO GET SOME REST TO WHICH PT SHOOK HER HEAD, "NO". PT A LITTLE AFTER FELL ASLEEP. VSS.
--- NOTE | 2018-08-26 05:59 | NUR ---
LATE ENTRY FOR 0000: PT LS CLEAR, VSS. PT WITH SATS 98-100% THIS NOC. PT RESTING QUIETLY BUT AROUSABLE.
--- NOTE | 2018-08-26 07:47 | NUR ---
ASSUMED CARE: REPORT RECEIVED FROM LISA Foley RN. ASSUMED CARE OF THIS PT AT APPROX 0700. ROUNDING COMPLETE, PT IS RESTING QUIETLY BUT AWAKENS TO VERBAL STIMULI, NODS TO ANSWER YES/NO QUESTIONS APPROPRIATELY. BILAT SOFT WRIST RESTRAINTS REMAIN ON TO PROTECT ETT & VITAL LINES. SEDATION VIA PROPOFOL CHARTED IN FLOWSHEET. PLAN IS FOR POSS EXTUBATION TODAY. WILL CONTINUE TO MONITOR & UPDATE NEEDED.
--- NOTE | 2018-08-26 12:28 | NUR ---
DR. RAPP: PROVIDER IN ROOM TO SEE PT, HE STS THAT WE ARE OKAY TO EXTUBATE THIS AFTERNOON. WILL PLACE SEDATION ON STANDBY & NOTIFY RT. WILL CONTINUE TO MONITOR & UPDATE NEEDED.
--- NOTE | 2018-08-26 13:13 | NUR ---
EXTUBATION: SHIRA, RT IN ROOM. PT EXTUBATED AT 1310, PLACED ON 3L NC. COLLINS WELL W/ O2 SATS > 92%. NG TUBE REMAINS IN PLACE FOR GASTRIC DECOMPRESSION & REST. WILL CONTINUE TO MONITOR & UPDATE NEEDED.
--- NOTE | 2018-08-26 14:07 | NUR ---
UPDATE / CALL TO DR. JIMENEZ: UPON RETURNING FROM [facility]UNCH, IT IS NOTED BY THIS RN THAT THE PT HAS REMOVED HER NG TUBE & NC. SHE IS CONFUSED, HOLDING BOTH ITEMS UP & STATING "SOMETHING HAPPENED, MY GLASSES BROKE." CALL TO DR. JIMENEZ TO INFORM HIM OF NGT REMOVAL. INFORMED HIM THAT SHE HAS HAD APPROX 200 ML OUTPUT THIS SHIFT & ASKED IF PLACING A NEW NGT WOULD BE NECESSARY. HE STS THERE IS NO NEED TO PLACE A NEW TUBE AT THIS TIME. WILL CALL PROVIDER AGAIN IF PT BECOMES NAUSEOUS OR BEGINS TO HAVE EMESIS. WILL CONTINUE TO MONITOR & UPDATE NEEDED.
--- NOTE | 2018-08-26 18:29 | NUR ---
SHIFT SUMMARY: NO ACUTE CHANGES SINCE EXTUBATION THIS AFTERNOON. PT A&O, BUT IS FORGETFUL & DISORIENTED AT TIMES. SHE IS PLEASANT & COOPERATIVE W/ CARE. SOME OF FORGETFULNESS R/T HX TBI ACCORDING TO PT's DAUGHTER. LS REMAIN CLEAR T/O, PT NOW ON RA W/ O2 SATS > 92%. NSR W/ HR 90-100s ON MONITOR, PT SLIGHTLY HYPERTENSIVE SINCE SEDATION BEING STOPPED. SHE REMAINS NPO, BUT INDICATED IN PRIOR UPDATE, NO LONGER HAS NGT IN PLACE. SHE HAS HAD NO C/O NAUSEA SINCE NGT REMOVAL. STOMA REMAINS PINK & MOIST, SCANT SS OUTPUT NOTED ON OSTOMY BAG. WOUND VAC TO MIDLINE ABD REMAINS PATENT. TEMP ZAYAS PATENT/DRAINING DARK YELLOW URINE. PT STS CHRONIC PAIN TO BACK IS EXACERBATED AT THIS TIME. FENTANYL DRIP INFUSING PER ORDERS. WILL CONTINUE TO MONITOR & REPORT OFF TO ONCOMING RN.
--- NOTE | 2018-08-26 19:30 | NUR ---
ASSUMED CARE- PT CURRENTLY ALERT AND ORIENTED TO SELF, EVENT, AND FOLLOWING DIRECTIONS. PT IS UNABLE TO RECALL SPECIFIC DATE, AND NAME OF FACILITY, BUT IS AWARE OF PROCESS OF EVENTS THAT LED HER TO BE IN THE HOSPITAL AND HAVE PROCEDURE. VSS. PT LYING IN BED, APPEARS TO BE RELAXED, TALKING AND LAUGHING WITH STAFF. CURRENTLY REPORTING PAIN TO ABDOMINAL AREA AND BACK THAT IS A 10/10, FENTANYL DRIP CURRENTLY INFUSING AT 37.5MCG/HR, NEW BAG TO BE HUNG WITH SECOND RN. LUNG SOUNDS CURRENTLY CLEAR IN ALL UPPER LOBES DIMINISHED IN THE BASES WITH FINE CRACKLES NOTED TO RLL. WEAK, MOIST COUGH NOTED OCCASIONALLY- PT ENCOURAGED TO SPLINT ABDOMEN WITH COUGHING- PT REPORTS THAT THIS HELPS WITH DISCOMFORT. PT EDUCATED OPTOMECHANICAL ENGINEER LIGHT USE AND GIVEN GLASSES PER REQUEST. WILL COMPLETE ASSESSMENT AND CONTINUE TO MONITOR. BED IN LOW POSITION, CALL LIGHT IN REACH.
--- NOTE | 2018-08-27 | NUR ---
PO FLUIDS REQUEST PT REQUESTING SIPS OF WATER. DISCUSSED PT STATUS WITH CHARGE NURSE AND PERFORMED PO CHALLENGE WITH THICKENED WATER. PT TOLERATED WELL. NO SIGNS OF ASPIRATION AND PT DENIED ANY NAUSEA OR PAIN WITH WATER. WILL CONTINUE TO MONITOR FOR ANY CHANGES TO PATIENT STATUS. BED IN LOW POSITION, CALL LIGHT IN REACH.
[2018-08-27 04:32] LABS: BASOPHILS ABSOLUTE AUTO 0.03 K/mm3 (0.00-0.23); BASOPHILS PERCENT AUTO 0 % (0-2); EOSINOPHILS ABSOLUTE AUTO 0.15 K/mm3 (0.00-0.68); EOSINOPHILS PERCENT AUTO 1 % (0-6); Hematocrit 26.7 % (33.0-51.0); Hemoglobin 8.4 g/dL (11.5-16.0); IMMATURE GRAN ABSOLUTE AUTO 0.47 K/mm3 (0.00-0.10); IMMATURE GRAN PERCENT AUTO 4 % (0-1); LYMPHOCYTES ABSOLUTE AUTO 1.88 K/mm3 (0.84-5.20); LYMPHOCYTES PERCENT AUTO 15 % (21-46); MONOCYTES ABSOLUTE AUTO 1.01 K/mm3 (0.16-1.47); MONOCYTES PERCENT AUTO 8 % (4-13); Mean Corpuscular HGB 32.1 pg (26.0-34.0); Mean Corpuscular HGB Conc 31.5 g/dL (31.5-36.5); NEUTROPHILS ABSOLUTE AUTO 8.67 K/mm3 (1.96-9.15); NEUTROPHILS PERCENT AUTO 71 % (41-73); Platelet Count 229 K/mm3 (150-400); RDW Coefficient Variation 13.4 % (11.7-14.2); RDW Standard Deviation 49.9 fL (35.1-46.3); Red Blood Cell Count 2.62 M/mm3 (3.80-5.20); White Blood Cell Count 12.21 K/mm3 (4.00-11.30)
[2018-08-27 04:33] LABS: Mean Corpuscular Volume 102 fL (80-100)
[2018-08-27 04:46] LABS: Albumin, Blood 1.5 g/dL (3.4-5.0); Anion Gap 8 mmol/L (6-16); Blood Urea Nitrogen 17 mg/dL (8-24); Bun/Creatinine Ratio 25.9 (12.0-20.0); CO2, Blood 23 mmol/L (21-32); Calcium, Blood 7.3 mg/dL (8.5-10.1); Chloride, Blood 115 mmol/L (98-108); Creatinine, Blood 0.66 mg/dL (0.40-1.00); Glomerular Filtration Rate >60 (60-); Glucose, Blood 162 mg/dL (70-99); Phosphorus, Blood 3.3 mg/dL (2.5-4.9); Potassium, Blood 3.8 mmol/L (3.5-5.5); Sodium, Blood 146 mmol/L (136-145)
--- NOTE | 2018-08-27 06:22 | NUR ---
SHIFT SUMMARY- PT HAS REMAINED AOX4 WITH INTERMITTENT FORGETFULLNESS OR DISORIENTATION, WHICH SHE STATES IS "NORMAL FOR HER BECAUSE OF HER TBI". VSS. VERY PLEASANT AND COOPERATIVE WITH CARE. PT HAS RESTED THROUGHOUT MOST OF THE NIGHT, WAKING EASILY FOR CARE AND TURNING. FENTANYL DRIP CONTINUES TO INFUSE AT 37.5MCG/HR FOR PAIN MANAGEMENT- PT HAS MAINTAINED CNVI SCALE OF 3 OR LESS THROUGHOUT SHIFT. HAS DENIED NAUSEA THROUGHOUT SHIFT AND TOLERATED SIPS OF WATER WELL PER HER REQUEST. STOMA HAS REMAINED UNCHANGED THROUGHOUT THE NIGHT, STILL IS PINK, SMALL AMOUNT OF DARK BROWN, LIQUID STOOL THIS AM. WOUND VAC AND DRESSING REMAIN INTACT, NO SWELLING NOTED, ABDOMEN HAS REMAINED SOFT WITH TENDERNESS ON PALPATION. NO OTHER CHANGES NOTED THROUGHOUT THE SHIFT. WILL CONTINUE TO MONITOR AND REPORT TO ONCOMING RN. BED IN LOW POSITION, CALL LIGHT IN REACH.
--- NOTE | 2018-08-27 07:10 | NUR ---
FENTANYL DRIP VERIFIED REMAINING FLUID AMOUNT IN FENTANYL DRIP WITH ONCOMING NOLBERTO NAILS. PT HAS APPROXIMATELY 40 ML REMAINING IN BAG WITH 200 ML HAVING INFUSED SINCE ADMINISTRATION. DRIP CONTINUES TO INFUSE AT 37.5 MCG/HR OR 18.8 ML/HR AT THIS TIME. REPORT GIVEN TO ONCGERRY NAILS.
--- NOTE | 2018-08-27 09:00 | NUR ---
PT AWAKE, ALERT, AND ORIENTED. WATCHING TV, USING CALL LIGHT APPROPRIATELY. WHEN ASKED ABOUT PAIN, C/O PAIN 04/22. CNVI 08/17. ABD MILDLY TENDER TO PALPATION. HYPOACTIVE BT'S T/O. DR JIMENEZ IN; OKAY TO START CLEAR LIQUID DIET. SURGICAL FLOOR STATUS. PT TOLERATED SIPS OF WATER AND ICE WELL. FENT GTT AT 37.5MCG, 25MCG GIVEN FOR BREAKTHROUGH PAIN. STOMA BEEFY RED, BILE TO ILEOSTOMY BAG; SMALL AMT. MIDLINE INCISION TO SURGICAL WOUND VAC/C/D/I.
--- NOTE | 2018-08-27 11:15 | NUR ---
FENT IV GTT DC'D AT 1110. TRUONG SAWYER WITNESSED 96.3 CC CLEARED FROM PUMP, AND 10CC WASTED FROM IV LINE (BAG WAS DRY WHEN DC'D). PT AND I ASSISTED PT UP TO CHAIR WITH WALKER AND SBA, PT TOLERATED VERY WELL. ZAYAS DC'D W/O DIFFICULTY. PT TO GO TO ROOM 233. DR SIMMONS IN TO SEE PT WELL DR BARBARA CLARK THIS AM
--- NOTE | 2018-08-27 18:35 | NUR ---
SHIFT SUMMARY PT TRANSFERED TO UNIT FROM ICU THIS SHIFT. PT HAD ONE EPISODE OF DARK GREEN BILE EMESIS SINCE ARRIVAL-MEDICATED WITH 4MG ZOFRAN. MEDICATED WITH 50MCG FENTANYL TWICE FOR ABDOMINAL PAIN. ILEOSTOMY DRAINING SMALL AMOUNT OF BILE COLORED LIQUID-STOMA MOIST AND PINK.CPN RUNNING IN L IJ. TOLERATING SMALL AMOUNT OF CLEAR LIQUIDS.
--- NOTE | 2018-08-27 18:46 | NUR ---
Patient gave verbal consent to allowing myself to care for her.
[2018-08-28 05:20] LABS: BASOPHILS ABSOLUTE AUTO 0.04 K/mm3 (0.00-0.23); BASOPHILS PERCENT AUTO 0 % (0-2); EOSINOPHILS ABSOLUTE AUTO 0.09 K/mm3 (0.00-0.68); EOSINOPHILS PERCENT AUTO 1 % (0-6); Hematocrit 30.8 % (33.0-51.0); IMMATURE GRAN ABSOLUTE AUTO 0.59 K/mm3 (0.00-0.10); IMMATURE GRAN PERCENT AUTO 3 % (0-1); LYMPHOCYTES ABSOLUTE AUTO 1.28 K/mm3 (0.84-5.20); LYMPHOCYTES PERCENT AUTO 7 % (21-46); MONOCYTES ABSOLUTE AUTO 0.92 K/mm3 (0.16-1.47); MONOCYTES PERCENT AUTO 5 % (4-13); Mean Corpuscular HGB 32.4 pg (26.0-34.0); Mean Corpuscular HGB Conc 32.5 g/dL (31.5-36.5); Mean Corpuscular Volume 100 fL (80-100); Mean Platelet Volume 10.2 fL (9.1-12.4); NEUTROPHILS PERCENT AUTO 84 % (41-73); Platelet Count 308 K/mm3 (150-400); RDW Coefficient Variation 12.9 % (11.7-14.2); RDW Standard Deviation 46.9 fL (35.1-46.3); Red Blood Cell Count 3.09 M/mm3 (3.80-5.20); White Blood Cell Count 18.32 K/mm3 (4.00-11.30)
[2018-08-28 06:00] LABS: Albumin, Blood 1.7 g/dL (3.4-5.0); Anion Gap 7 mmol/L (6-16); Blood Urea Nitrogen 21 mg/dL (8-24); Bun/Creatinine Ratio 34.7 (12.0-20.0); CO2, Blood 22 mmol/L (21-32); Calcium, Blood 7.6 mg/dL (8.5-10.1); Chloride, Blood 112 mmol/L (98-108); Creatinine, Blood 0.61 mg/dL (0.40-1.00); Glomerular Filtration Rate >60 (60-); Glucose, Blood 125 mg/dL (70-99); Phosphorus, Blood 3.4 mg/dL (2.5-4.9); Potassium, Blood 3.5 mmol/L (3.5-5.5); Sodium, Blood 141 mmol/L (136-145)
--- NOTE | 2018-08-28 14:46 | NUR ---
PT'S BOTTOM BLOCHY WHEN GOT UP TO STANDING POSITION. ENCOURAGE REPOSITION
--- NOTE | 2018-08-28 15:07 | NUR ---
SUMMARY TURNING OVER CARE TO JESU HOLLOWAY. PT HAS BEEN OUT OF BED AND TO CHAIR TWICE TODAY. WEAK BUT ABLE TO STAND AND SIDE STEP TO CHAIR. URINE DARK BROWNISH YELLOW. HAD EPISODE OF 400 ML GREEN EMESIS. OSTOMY PUTTING OUT GREEN FLUID. FEBRILE. MEDICATED PER ORDERS W/TYLENOL. IV FLUIDS INFUSING W/O DIFFICULTY. CALL LIGHT IN REACH.
--- NOTE | 2018-08-28 17:37 | NUR ---
NOTE PT HAS RESTED IN BED SINCE TAKING OVER CARE. DENIED N/V. DENIES NEEDS.
--- NOTE | 2018-08-28 18:08 | NUR ---
EMESIS AFTER PATIENT TRIED 2-3 BITES OF EVERYTHING ON FULL LIQUID DINNER TRAY, PT VOMITED 500 MLS. DISCUSSED WITH PATIENT TO ONLY TAKE IN WATER TONIGHT AND CLEAR LQS.
[2018-08-29 04:21] LABS: Source, Urine Clean Catch
[2018-08-29 04:24] LABS: Bilirubin, Urine Neg (Neg); Blood, Urine Neg (Neg); Glucose Qualitative, Urine Neg (Neg); Ketones, Urine Neg (Neg); Leukocyte Esterase, Urine 1+ (Neg); Nitrite, Urine Neg (Neg); Protein, Urine 2+ (Neg); Urobilinogen, Urine NORM (Normal)
[2018-08-29 04:28] LABS: Appearance, Urine Clear (Clear); Color, Urine Amber (P-Yellow)
[2018-08-29 04:31] LABS: Bacteria Rare /hpf; Red Blood Cells, Urine Not Seen /hpf (0-2); Squamous Epithelial Cells Not Seen /hpf (Few)
[2018-08-29 04:58] LABS: BASOPHILS ABSOLUTE AUTO 0.03 K/mm3 (0.00-0.23); BASOPHILS PERCENT AUTO 0 % (0-2); EOSINOPHILS ABSOLUTE AUTO 0.06 K/mm3 (0.00-0.68); EOSINOPHILS PERCENT AUTO 0 % (0-6); Hemoglobin 10.1 g/dL (11.5-16.0); IMMATURE GRAN ABSOLUTE AUTO 0.54 K/mm3 (0.00-0.10); IMMATURE GRAN PERCENT AUTO 3 % (0-1); LYMPHOCYTES ABSOLUTE AUTO 0.96 K/mm3 (0.84-5.20); LYMPHOCYTES PERCENT AUTO 5 % (21-46); MONOCYTES ABSOLUTE AUTO 0.96 K/mm3 (0.16-1.47); MONOCYTES PERCENT AUTO 5 % (4-13); Mean Corpuscular HGB 32.1 pg (26.0-34.0); Mean Corpuscular HGB Conc 31.6 g/dL (31.5-36.5); Mean Corpuscular Volume 102 fL (80-100); Mean Platelet Volume 9.8 fL (9.1-12.4); NEUTROPHILS ABSOLUTE AUTO 15.89 K/mm3 (1.96-9.15); NEUTROPHILS PERCENT AUTO 86 % (41-73); Platelet Count 385 K/mm3 (150-400); RDW Coefficient Variation 12.6 % (11.7-14.2); RDW Standard Deviation 47.6 fL (35.1-46.3); Red Blood Cell Count 3.15 M/mm3 (3.80-5.20); White Blood Cell Count 18.44 K/mm3 (4.00-11.30)
[2018-08-29 05:22] LABS: Albumin, Blood 1.7 g/dL (3.4-5.0); Anion Gap 10 mmol/L (6-16); Blood Urea Nitrogen 20 mg/dL (8-24); Bun/Creatinine Ratio 30.8 (12.0-20.0); CO2, Blood 20 mmol/L (21-32); Calcium, Blood 7.7 mg/dL (8.5-10.1); Chloride, Blood 111 mmol/L (98-108); Creatinine, Blood 0.65 mg/dL (0.40-1.00); Glomerular Filtration Rate >60 (60-); Glucose, Blood 101 mg/dL (70-99); Phosphorus, Blood 2.8 mg/dL (2.5-4.9); Potassium, Blood 3.4 mmol/L (3.5-5.5); Sodium, Blood 141 mmol/L (136-145)
--- NOTE | 2018-08-29 06:51 | NUR ---
SUMMARY PTS AFEBRILE THIS SHIFT. FREQUENT REEMINDING AND ENCURAGEMENT TO CDB AND USE I.S. PT WITH LOOSE COUGH. SOUNDS PRODUCITVE BUT NOTHING OUT AND PT DENIES SWALLOWING MUCUS.PT HAS NEBS PRN. TOLERATES OOB TO BSC WITH 1 ASSIST. PT IS WEAK/DECONDITIONED. PT WITH RARE C/O NAUSEA. MOSTLY WITH IV PAIN MEDS. PT SLEEPING OFF AND ON.PT FORGETFUL AT TIMES DURING THE NIGHT.KNEW SHE HAD SURGERY, BUT FORGOT SHE HAD OSTOMY. OSOMY WITH ONLY SCANT FLUID IN BAG TONIGHT.
--- NOTE | 2018-08-29 10:06 | NUR ---
PERMISSION FOR CARE PT GAVE THIS THREAD MACHINE OPERATOR PERMISSION TO CARE FOR HER ON AUGUST 29, 2018
--- NOTE | 2018-08-29 11:50 | NUR ---
PT REFUSED TO WORK W/THERAPY AND REFUSED LUNCH TRAY
--- NOTE | 2018-08-29 17:22 | NUR ---
SUMMARY PT NOT FEELING WELL. HAD ONE EPISODE OF EMESIS THIS AM. MEDICATED PER ORDERS FOR NAUSEA. REFUSED LUNCH TRAY. REFUSED THERAPY. AMBULATED TO RESTROOM ONCE DURING SHIFT. SAT UP SHORT TIME IN CHAIR. NOW RESTING W/LIGHT OFF. CALL LIGHT IN REACH. PLAN FOR CT OF ABD TOMORROW.
--- NOTE | 2018-08-29 20:32 | NUR ---
INTAKE: CALLED R/T PT POOR PO INTAKE AND ONGOING N/V. PT I/O AND LABS REV W/ONCALL HOSPITALIST ONI. NEW ORDER FOR IVF AND BMP LABS IN AM REC.
[2018-08-30 07:15] LABS: Anion Gap 8 mmol/L (6-16); Blood Urea Nitrogen 20 mg/dL (8-24); Bun/Creatinine Ratio 28.2 (12.0-20.0); CO2, Blood 22 mmol/L (21-32); Calcium, Blood 7.5 mg/dL (8.5-10.1); Chloride, Blood 108 mmol/L (98-108); Creatinine, Blood 0.71 mg/dL (0.40-1.00); Glomerular Filtration Rate >60 (60-); Glucose, Blood 86 mg/dL (70-99); Sodium, Blood 138 mmol/L (136-145)
--- NOTE | 2018-08-30 07:38 | NUR ---
POD 9 S/P COLECTOMY/ILIOSTOMY PLACEMENT. PT MAX TEMP 100.0, HR TACHY-LOW 100'S, OTHER VSS. PT STRUGGLED W/N/V DURING NIGHT, WAS UNABLE TO COLLINS PO CONTRAST. PAIN MGD W/IV PAIN MEDS. OSTOMY PUTTING OUT LIQ DARK GREEN STOOL. PT ENC TO USE I/S, HAS DECLINED FOR MOST OF NIGHT. PT WEAK WHEN UP, SBA+FWW FOR ASSISTANCE. IVF CONT PER ORDERS. CT SCAN COMPLETE THIS AM W/IV CONTRAST. PT USING CALL LIGHT FOR ASSISTANCE, REP GIVEN TO DAY RN.
--- NOTE | 2018-08-30 16:30 | NUR ---
ASSUMED CARE OF PATIENT AT 1600. PATIENT REPORTS PAIN, MEDICATED W/ FENTANYL 50 MCG IV AT THIS TIME. CONT TO MONITOR.
--- NOTE | 2018-08-30 19:11 | NUR ---
PATIENT STATES PAIN IMPROVED AFTER PO AND IV PAIN MEDS ADM. RT CALLED PER PATIENT REQUEST TO DISCUSS RESP CARE/INHALERS. NO ACUTE CHANGES SINCE 1600.
[2018-08-31 04:09] LABS: BASOPHILS ABSOLUTE AUTO 0.02 K/mm3 (0.00-0.23); BASOPHILS PERCENT AUTO 0 % (0-2); EOSINOPHILS ABSOLUTE AUTO 0.05 K/mm3 (0.00-0.68); EOSINOPHILS PERCENT AUTO 0 % (0-6); Hematocrit 29.4 % (33.0-51.0); Hemoglobin 9.4 g/dL (11.5-16.0); IMMATURE GRAN ABSOLUTE AUTO 0.16 K/mm3 (0.00-0.10); IMMATURE GRAN PERCENT AUTO 1 % (0-1); LYMPHOCYTES ABSOLUTE AUTO 0.92 K/mm3 (0.84-5.20); LYMPHOCYTES PERCENT AUTO 7 % (21-46); MONOCYTES ABSOLUTE AUTO 1.18 K/mm3 (0.16-1.47); MONOCYTES PERCENT AUTO 8 % (4-13); Mean Corpuscular HGB 31.6 pg (26.0-34.0); Mean Platelet Volume 9.9 fL (9.1-12.4); NEUTROPHILS ABSOLUTE AUTO 11.82 K/mm3 (1.96-9.15); NEUTROPHILS PERCENT AUTO 84 % (41-73); Platelet Count 543 K/mm3 (150-400); RDW Coefficient Variation 12.5 % (11.7-14.2); RDW Standard Deviation 44.6 fL (35.1-46.3); Red Blood Cell Count 2.97 M/mm3 (3.80-5.20); White Blood Cell Count 14.15 K/mm3 (4.00-11.30)
[2018-08-31 04:14] LABS: Mean Corpuscular Volume 99 fL (80-100)
[2018-08-31 04:26] LABS: Albumin, Blood 1.8 g/dL (3.4-5.0); Anion Gap 11 mmol/L (6-16); Blood Urea Nitrogen 14 mg/dL (8-24); Bun/Creatinine Ratio 23.9 (12.0-20.0); CO2, Blood 19 mmol/L (21-32); Calcium, Blood 7.3 mg/dL (8.5-10.1); Chloride, Blood 112 mmol/L (98-108); Creatinine, Blood 0.59 mg/dL (0.40-1.00); Glomerular Filtration Rate >60 (60-); Glucose, Blood 91 mg/dL (70-99); Magnesium, Blood 1.9 mg/dL (1.6-2.4); Phosphorus, Blood 2.1 mg/dL (2.5-4.9); Potassium, Blood 3.5 mmol/L (3.5-5.5); Sodium, Blood 142 mmol/L (136-145)
--- NOTE | 2018-08-31 06:25 | NUR ---
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 PT UNABLE TO SLEEP, REPORTS INSOMNIA. MEDICATED FOR PAIN PER EMAR, ANTIBIOTICS INFUSED. PT UP WITH SBA AND FWW TO COMMODE. BREATHING TREATMENTS PRN, ENCOURAGING I.S. USE AND DEEP BREATHE. OSTOMY PUTTING OUT LIQUID STOOL. PT TOLERATING CLEAR LIQUID DIET, NO FULL LIQUIDS GIVEN TONIGHT. PT BED ALARM ON FOR SAFETY, NO ACUTE CONCERNS AT THIS TIME.
--- NOTE | 2018-08-31 15:25 | NUR ---
SHIFT SUMMARY PT POD 10 COLECTOMY W/ILEOSTOMY PLACEMENT. MIDLINE INCISION COVERED W/AQUACEL DRESSING C/D/I. ILEOSTOMY PUT OUT TOTAL OF 900ML DARK GREEN LIQUID THIS SHIFT. PT DENIES NAUSEA, TOLERATING APROX 10% OF MEALS ON FULL LIQUID DIET. PT UP TO CHAIR/SHOWER/WORK WITH PT THIS SHIFT-TOLERATED WELL. MEDICATED ONCE FOR PAIN WI PO MAIN MEDICATION.
--- NOTE | 2018-08-31 16:45 | NUR ---
ASSUMED CARE OF PATIENT AT THIS TIME. PT HAS HOME MEDS IN HER HAND, STATING THAT SHE NEEDS TO TAKE THEM. TOPOMAX LOCKED IN MED DRAWER AND EXPLAINED TO PATIENT THAT STAFF IS GIVING HER MEDS THEY ARE ORDERED BY THE DOCTOR. PT AGGRESIVE AND TELLS STAFF TO GET OUT OF HER ROOM. PT STILL HAS PURSE IN HANDS AND IT IS UNKNOWN IF SHE HAS OTHER MEDS. WILL MONITOR CLOSELY AND LOCK MEDS NEEDED FOR SAFETY.
--- NOTE | 2018-09-01 06:23 | NUR ---
SHIFT SUMMARY PT ALERT, NEEDED REMINDERS R/T TIME AND MEDICATIONS. POD#11 COLECTOMY WITH END ILEOSTOMY, AND L OOPHECTOMY; DRESSING CDI, BEEFY PINK STOMA WITH GREEN/BROWN LIQUID. PAIN MANGED PER EMAR. ABD SOFT; BT PRESENT. PT DENIES NAUSEA AND CP T/O SHIFT. PT DECLINED SCD'S TO BLE'S. TOLERATING FULL LIQUID DIET. CALL LIGHT IN REACH; SIDE RAILS X3 AND BED ALARM FOR SAFETY. STAND PIVOT TO TOILET X1 AND TO WC FOR RIDE AROUND UNIT. RA; RESP. TX PER RT; PT ENC TO USE IS WHEN AWAKE. WCTM UNTIL REPORT TO DAY SHIFT RN.
[2018-09-01 10:08] LABS: Albumin, Blood 1.8 g/dL (3.4-5.0); Anion Gap 9 mmol/L (6-16); Blood Urea Nitrogen 5 mg/dL (8-24); Bun/Creatinine Ratio 7.8 (12.0-20.0); CO2, Blood 19 mmol/L (21-32); Calcium, Blood 7.3 mg/dL (8.5-10.1); Chloride, Blood 112 mmol/L (98-108); Creatinine, Blood 0.64 mg/dL (0.40-1.00); Glomerular Filtration Rate >60 (60-); Glucose, Blood 134 mg/dL (70-99); Phosphorus, Blood 2.2 mg/dL (2.5-4.9); Potassium, Blood 3.3 mmol/L (3.5-5.5); Sodium, Blood 140 mmol/L (136-145)
--- NOTE | 2018-09-01 10:26 | NUR ---
ROUNDING: DR JIMENEZ IN TO SEE PT. LABS REVIEWED AND PT STARTED ON A REG DIET TOLERATED.
--- NOTE | 2018-09-01 19:29 | NUR ---
no acute changes this shift. pt cont to get oob with 1 assist. weak and deconditioned, plan for snf at discharge. pt advanced to reg diet, taking small amts. pt having large amt green bile like drainage from ostomy. no nausea or emesis. cont abx. potassium phos x1, repeat am labs. pain controlled with 1-2 percocet as needed. kpad as needed for left wrist pain. borders drawn to redness on wrist. pt forgetful at times r/t tbi history but has used the call light appropriately. cont to encourage tcdb and spirometry/flutter for pulmonary toilet.
--- NOTE | 2018-09-02 04:25 | NUR ---
SUMMARY: NO CHANGE THIS SHIFT. VSS, PT DID NOT SLEEP, REPORTS INSOMNIA. MEDICATED PRN FOR PAIN, OSTOMY DRAINED ABOUT 500ML DARK GREEN LIQUID. TOLERATING REG DIET. PT FORGETFUL OF TIME, OTHERWISE ORIENTED, USING CALL LIGHT. BED ALARM ON FOR SAFETY. UP WITH SBA, FWW, PLAN IS DC TO SNF. NO SAFETY CONCERNS AT THIS TIME
[2018-09-02 07:42] LABS: Hematocrit 26.3 % (33.0-51.0); Hemoglobin 8.4 g/dL (11.5-16.0); Mean Corpuscular HGB 31.6 pg (26.0-34.0); Mean Corpuscular HGB Conc 31.9 g/dL (31.5-36.5); Mean Corpuscular Volume 99 fL (80-100); Platelet Count 701 K/mm3 (150-400); RDW Standard Deviation 45.9 fL (35.1-46.3); Red Blood Cell Count 2.66 M/mm3 (3.80-5.20); White Blood Cell Count 9.91 K/mm3 (4.00-11.30)
[2018-09-02 07:52] LABS: Albumin, Blood 1.8 g/dL (3.4-5.0); Anion Gap 9 mmol/L (6-16); Blood Urea Nitrogen 4 mg/dL (8-24); Bun/Creatinine Ratio 5.8 (12.0-20.0); CO2, Blood 21 mmol/L (21-32); Calcium, Blood 7.5 mg/dL (8.5-10.1); Chloride, Blood 111 mmol/L (98-108); Creatinine, Blood 0.69 mg/dL (0.40-1.00); Glomerular Filtration Rate >60 (60-); Glucose, Blood 84 mg/dL (70-99); Phosphorus, Blood 2.7 mg/dL (2.5-4.9); Potassium, Blood 3.8 mmol/L (3.5-5.5); Sodium, Blood 141 mmol/L (136-145)
--- NOTE | 2018-09-02 18:16 | NUR ---
SHIFT SUMMARY PT HAS DONE WELL TODAY. WAS VERY FORGETFUL MIDDAY BUT AFTER NAPPED SHE BECAME REORIENTED. AMBULATED IN HALLWAYS TWICE, UP IN ROOM TO BATHROOM, OSTOMY PUTS OUT LOTS OF LIQUID GREEN. TOLERATED REG DIET.
[2018-09-02 18:50] LABS: Percent Saturation 9.1 % (15.0-50.0)
[2018-09-03 06:06] LABS: Hematocrit 27.8 % (33.0-51.0); Hemoglobin 8.8 g/dL (11.5-16.0)
--- NOTE | 2018-09-03 06:40 | NUR ---
SUMMARY PT UP IN ROOM WITH 1 ASSIST AND WALKER. WEAK. PT TAKING P0 PAIN MEDS.CONSISTENTLY RATES PAIN LEVEL 9 AND FOLLOW UP PAIN LEVEL 8. PT RATES SAME WITH EITHER 1 PILL OR 2. HOWEVER, WHEN I DISCUSSED THIS WITH HER, SHE REPORTS 2 PILLS ARE MORE EFFECTIVE. OSTOMY CONTINUES TO HAVE LIQ GREEN OUTPUT. PT WITH NO C/O NAUSEA TONIGHT.
--- NOTE | 2018-09-03 15:47 | NUR ---
DISCHARGE SUMMARY PT A&OX3, FORGETFUL AT TIMES, LEFT FLOOR WITH TRANSPORT TO [facility], WITH PERSONAL POSSESSIONS INCLUDING TOPAMAX IN GREEN BAG, 2 AQUACEL, 3 OSTOMY BAGS AND ENVELOPE FOR SNF. REPORT CALLED. SONYA REMOVED BY LESLIE NAILS, PRIOR TO DEPARTURE.
== END 2018-09-03 15:01 | DRG 853 ==
LOC: ER 01:39 → ICUW 03:49 → SURS 08-27 12:01
PROVIDERS: Emergency Medicine; Hospitalist; Internal Medicine; Internal Medicine Critical Care Medicine; Internal Medicine Pulmonary Disease; Nurse Practitioner Acute Care; Surgery; ADMIT Internal Medicine
PROC: 0UT10ZZ Resection of Left Ovary, Open Approach (ICD-10-PCS; 2018-08-21)
PROC: 3E043XZ Introduction of Vasopressor into Central Vein, Percutaneous Approach (ICD-10-PCS; 2018-08-21)
PROC: 02HV33Z Insertion of Infusion Device into Superior Vena Cava, Percutaneous Approach (ICD-10-PCS; 2018-08-21)
PROC: B548ZZA Ultrasonography of Superior Vena Cava, Guidance (ICD-10-PCS; 2018-08-21)
PROC: 5A1955Z Respiratory Ventilation, Greater than 96 Consecutive Hours (ICD-10-PCS; 2018-08-21)
PROC: 0DTE0ZZ Resection of Large Intestine, Open Approach (ICD-10-PCS; principal; 2018-08-21 08:15)
PROC: 0D1B0Z4 Bypass Ileum to Cutaneous, Open Approach (ICD-10-PCS; 2018-08-21 08:15)
PROC: 0DTU0ZZ Resection of Omentum, Open Approach (ICD-10-PCS; 2018-08-21 08:15)
DX: A41.9 Sepsis, unspecified organism (principal); K63.1 Perforation of intestine (nontraumatic); R65.21 Severe sepsis with septic shock; N17.0 Acute kidney failure with tubular necrosis; K59.31 Toxic megacolon; R64 Cachexia; E87.0 Hyperosmolality and hypernatremia; K63.3 Ulcer of intestine; J44.9 Chronic obstructive pulmonary disease, unspecified; I10 Essential (primary) hypertension; G43.909 Migraine, unspecified, not intractable, without status migrainosus; K27.9 Peptic ulcer, site unspecified, unspecified as acute or chronic, without hemorrhage or perforation; F41.9 Anxiety disorder, unspecified; G47.00 Insomnia, unspecified; Z86.73 Personal history of transient ischemic attack (TIA), and cerebral infarction without residual deficits; Z87.828 Personal history of other (healed) physical injury and trauma; K66.8 Other specified disorders of peritoneum; G40.909 Epilepsy, unspecified, not intractable, without status epilepticus; F17.200 Nicotine dependence, unspecified, uncomplicated; Z68.20 Body mass index [BMI] 20.0-20.9, adult; E87.6 Hypokalemia; E83.39 Other disorders of phosphorus metabolism; D27.1 Benign neoplasm of left ovary
CPT/HCPCS: 31720; 36415; 36556; 36600; 51702; 71045; 74177; 80048; 80053; 80069; 80202; 81001; 82728; 82803; 82947; 83540; 83550; 83605; 83690; 83735; 84100; 84132; 84478; 84484; 85014; 85018; 85025; 85027; 87040; 87076; 87077; 87086; 87185; 87186; 88305; 88307; 92610; 93005; 93010; 94002; 94003; 94640; 94667; 94760; 96361; 96365; 96375; 97110; 97116; 97162; 97530; 99284-25; 99285-25; C1751; C9113; J0295; J0610; J1100; J1650; J1956; J2250; J2370; J2405; J2543; J2765; J2920; J3010; J3370; J3411; J3480; J7030; J7040; J7050; J7060; J7070; J7120; P9612; Q9967

== ENCOUNTER 2018-10-21 17:35 | Emergency (ER) | payer OTHER ==
[~2018-10-21] VITALS: Ht 175.3 cm; Wt 54.4 kg
[~2018-10-21 17:35] MED LIST changes: +ALBU90OI INH
[2018-10-21 19:11] LABS: BASOPHILS ABSOLUTE AUTO 0.03 K/mm3 (0.00-0.23); BASOPHILS PERCENT AUTO 0 % (0-2); EOSINOPHILS ABSOLUTE AUTO 0.07 K/mm3 (0.00-0.68); EOSINOPHILS PERCENT AUTO 1 % (0-6); Hematocrit 37.1 % (33.0-51.0); Hemoglobin 11.2 g/dL (11.5-16.0); IMMATURE GRAN ABSOLUTE AUTO 0.06 K/mm3 (0.00-0.10); IMMATURE GRAN PERCENT AUTO 1 % (0-1); LYMPHOCYTES ABSOLUTE AUTO 1.26 K/mm3 (0.84-5.20); LYMPHOCYTES PERCENT AUTO 12 % (21-46); MONOCYTES ABSOLUTE AUTO 0.63 K/mm3 (0.16-1.47); MONOCYTES PERCENT AUTO 6 % (4-13); Mean Corpuscular HGB 28.1 pg (26.0-34.0); Mean Corpuscular HGB Conc 30.2 g/dL (31.5-36.5); Mean Corpuscular Volume 93 fL (80-100); Mean Platelet Volume 8.8 fL (9.1-12.4); NEUTROPHILS ABSOLUTE AUTO 8.88 K/mm3 (1.96-9.15); NEUTROPHILS PERCENT AUTO 81 % (41-73); Platelet Count 373 K/mm3 (150-400); RDW Coefficient Variation 15.1 % (11.7-14.2); RDW Standard Deviation 52.5 fL (35.1-46.3); Red Blood Cell Count 3.99 M/mm3 (3.80-5.20); White Blood Cell Count 10.93 K/mm3 (4.00-11.30)
[2018-10-21] MEDS ORDERED: Flovent 110 MCG12 GM INH (19:11)
[2018-10-21 19:28] LABS: Alanine Aminotransfer (ALT/SGP 18 U/L (12-78); Albumin, Blood 2.7 g/dL (3.4-5.0); Albumin/Globulin Ratio 0.6 (0.8-1.8); Alk Phos 113 U/L (50-136); Anion Gap 8 mmol/L (6-16); Aspartate Aminotrans (AST/SGOT 7 U/L (12-37); Bilirubin, Total 0.2 mg/dL (0.1-1.0); Blood Urea Nitrogen 11 mg/dL (8-24); Bun/Creatinine Ratio 22.4 (12.0-20.0); CO2, Blood 25 mmol/L (21-32); Chloride, Blood 104 mmol/L (98-108); Creatinine, Blood 0.49 mg/dL (0.40-1.00); Globulin, Blood 4.7 g/dL (2.2-4.0); Glomerular Filtration Rate >60 (60-); Glucose, Blood 92 mg/dL (70-99); Potassium, Blood 2.7 mmol/L (3.5-5.5); Sodium, Blood 137 mmol/L (136-145); Total Protein, Blood 7.4 g/dL (6.4-8.2)
[2018-10-21] MEDS ORDERED: POTCHL20ER PO (20:12)
[2018-10-21] MEDS ORDERED: AZIT250 PO (20:12)
== END 2018-10-21 20:34 | disposition home or self-care (01) ==
LOC: ER 17:35
PROVIDERS: Physician Assistant
DX: J18.1 Lobar pneumonia, unspecified organism (principal); E87.6 Hypokalemia; I10 Essential (primary) hypertension; G40.909 Epilepsy, unspecified, not intractable, without status epilepticus; G43.909 Migraine, unspecified, not intractable, without status migrainosus; F17.210 Nicotine dependence, cigarettes, uncomplicated; Z79.899 Other long term (current) drug therapy
CPT/HCPCS: 36415; 74176; 80053; 83605; 85025; 93005; 93010; 99284-25

== ENCOUNTER 2019-06-28 09:38 | Inpatient (IN) | payer OTHER ==
[~2019-06-28] VITALS: Ht 160 cm; Wt 40.8 kg
[~2019-06-28 09:38] MED LIST changes: +AZIT250 PO; +Flovent 220 Ora12 GM INH; +POTCHL20ER PO; -TOPI100 PO; +TROKENDI XR200 MG PO
[2019-06-28] MEDS ORDERED: VERAPAMIL HCL120 MG PO (11:42)
[2019-06-28] MEDS ORDERED: COMBIVENT RESPIM4 GM INH (11:48)
[2019-06-28] MEDS ORDERED: Hydrocodone-Ap1 EA20 PO (11:48)
[2019-06-28] MEDS ORDERED: Halcion0.25 MG PO (11:48)
[2019-06-28] MEDS ORDERED: PENVK500 PO (11:48)
[2019-06-28 12:22] LABS: BASOPHILS ABSOLUTE AUTO 0.04 K/mm3 (0.00-0.23); BASOPHILS PERCENT AUTO 0 % (0-2); EOSINOPHILS ABSOLUTE AUTO 0.03 K/mm3 (0.00-0.68); EOSINOPHILS PERCENT AUTO 0 % (0-6); Hematocrit 34.2 % (33.0-51.0); Hemoglobin 10.7 g/dL (11.5-16.0); IMMATURE GRAN ABSOLUTE AUTO 0.12 K/mm3 (0.00-0.10); IMMATURE GRAN PERCENT AUTO 1 % (0-1); LYMPHOCYTES ABSOLUTE AUTO 1.23 K/mm3 (0.84-5.20); LYMPHOCYTES PERCENT AUTO 8 % (21-46); MONOCYTES ABSOLUTE AUTO 0.87 K/mm3 (0.16-1.47); MONOCYTES PERCENT AUTO 6 % (4-13); Mean Corpuscular HGB 28.4 pg (26.0-34.0); Mean Corpuscular HGB Conc 31.3 g/dL (31.5-36.5); Mean Corpuscular Volume 91 fL (80-100); Mean Platelet Volume 9.6 fL (9.1-12.4); NEUTROPHILS ABSOLUTE AUTO 12.81 K/mm3 (1.96-9.15); NEUTROPHILS PERCENT AUTO 85 % (41-73); Platelet Count 298 K/mm3 (150-400); RDW Coefficient Variation 13.8 % (11.7-14.2); Red Blood Cell Count 3.77 M/mm3 (3.80-5.20)
[2019-06-28 12:49] LABS: Source, Urine Catheter
[2019-06-28 12:52] LABS: Bilirubin, Urine Neg (Neg); Blood, Urine Neg (Neg); Glucose Qualitative, Urine Neg (Neg); Ketones, Urine Neg (Neg); Leukocyte Esterase, Urine Neg (Neg); Nitrite, Urine Neg (Neg); Protein, Urine Neg (Neg); Urobilinogen, Urine NORM (Normal)
[2019-06-28 12:54] LABS: Alanine Aminotransfer (ALT/SGP 24 U/L (12-78); Albumin, Blood 3.2 g/dL (3.4-5.0); Alk Phos 79 U/L (50-136); Anion Gap 8 mmol/L (6-16); Aspartate Aminotrans (AST/SGOT 20 U/L (12-37); Bilirubin, Total <0.1 mg/dL (0.1-1.0); Blood Urea Nitrogen 12 mg/dL (8-24); Bun/Creatinine Ratio 18.9 (12.0-20.0); CO2, Blood 23 mmol/L (21-32); Calcium, Blood 7.9 mg/dL (8.5-10.1); Chloride, Blood 111 mmol/L (98-108); Creatinine, Blood 0.64 mg/dL (0.40-1.00); Globulin, Blood 3.2 g/dL (2.2-4.0); Glomerular Filtration Rate >60 (60-); Glucose, Blood 92 mg/dL (70-99); Potassium, Blood 3.5 mmol/L (3.5-5.5); Sodium, Blood 142 mmol/L (136-145); Total Protein, Blood 6.4 g/dL (6.4-8.2)
[2019-06-28 13:00] LABS: Appearance, Urine Clear (Clear); Color, Urine Pale Yellow (P-Yellow)
--- NOTE | 2019-06-28 13:35 | NUR ---
PT ARRIVED TO THE ROOM AT APPROXIMATELY 1315. PT IS ALERT AND ORIENTED; HOWEVER, SHE IS FORGETFUL AT TIMES AND HARD OF HEARING. PT COMPLAINS AT 10/10 PAIN, SHE IS RESTING QUIETLY WITHOUT GRIMACING OR MOANING. PT PROVIDED WITH PO PAIN MEDICATION AND EDUCATED TO USE BED CONTROLS IN ORDER TO HELP WITH COMFORT. EGG CRATE OFFERED, PT DECLINED SINCE SHE WOULD HAVE TO ROLL ON HER SIDE FOR EGG CRATE PLACEMENT. WILL CONTINUE TO MONITOR.
--- NOTE | 2019-06-28 16:45 | NUR ---
SHIFT SUMMARY PAIN HAS BEEN MANAGED WITH PO AND IV PAIN MEDICATION SINCE PT ARRIVED TO THE UNIT. PT IS FORGETFUL AT TIMES SO BED ALARM IS IN PLACE; PT HAS HX OF TBI RESULTING IN SHORT TERM MEMORY ISSUES. WILL MONITOR UNTIL REPORT TO ONCOMING RN.
--- NOTE | 2019-06-28 23:09 | NUR ---
CODE STATUS: ATTEMPTED TO PLACE DNR BAND, PT QUESTIONING REASON FOR BAND, PT EDUCATED ON DNR STATUS VS FULL CODE STATUS. PT VERBALIZED WANTING CPR, "MOUTH TO MOUTH" AND MOTIONED CHEST COMPRESSIONS. MD NOTIFIED OF PT REQ, NEW CODE STATUS RECEIVED. ORDER UPDATED.
[2019-06-29 04:33] LABS: BASOPHILS ABSOLUTE AUTO 0.02 K/mm3 (0.00-0.23); BASOPHILS PERCENT AUTO 0 % (0-2); EOSINOPHILS ABSOLUTE AUTO 0.06 K/mm3 (0.00-0.68); EOSINOPHILS PERCENT AUTO 1 % (0-6); Hematocrit 30.9 % (33.0-51.0); Hemoglobin 9.6 g/dL (11.5-16.0); IMMATURE GRAN ABSOLUTE AUTO 0.05 K/mm3 (0.00-0.10); IMMATURE GRAN PERCENT AUTO 0 % (0-1); LYMPHOCYTES ABSOLUTE AUTO 1.03 K/mm3 (0.84-5.20); LYMPHOCYTES PERCENT AUTO 8 % (21-46); MONOCYTES ABSOLUTE AUTO 1.17 K/mm3 (0.16-1.47); MONOCYTES PERCENT AUTO 10 % (4-13); Mean Corpuscular HGB 28.1 pg (26.0-34.0); Mean Corpuscular HGB Conc 31.1 g/dL (31.5-36.5); Mean Corpuscular Volume 90 fL (80-100); Mean Platelet Volume 9.7 fL (9.1-12.4); NEUTROPHILS ABSOLUTE AUTO 9.88 K/mm3 (1.96-9.15); NEUTROPHILS PERCENT AUTO 81 % (41-73); Platelet Count 309 K/mm3 (150-400); RDW Coefficient Variation 13.6 % (11.7-14.2); RDW Standard Deviation 45.2 fL (35.1-46.3); Red Blood Cell Count 3.42 M/mm3 (3.80-5.20); White Blood Cell Count 12.21 K/mm3 (4.00-11.30)
[2019-06-29 04:51] LABS: Anion Gap 6 mmol/L (6-16); Blood Urea Nitrogen 10 mg/dL (8-24); Bun/Creatinine Ratio 14.7 (12.0-20.0); CO2, Blood 22 mmol/L (21-32); Calcium, Blood 7.8 mg/dL (8.5-10.1); Chloride, Blood 111 mmol/L (98-108); Creatinine, Blood 0.68 mg/dL (0.40-1.00); Glomerular Filtration Rate >60 (60-); Glucose, Blood 96 mg/dL (70-99); Potassium, Blood 3.7 mmol/L (3.5-5.5); Sodium, Blood 139 mmol/L (136-145)
--- NOTE | 2019-06-29 06:29 | NUR ---
PT VSS T/O NIGHT. PT ALERT, IS FORGETFUL AT TIMES. PAIN MGD PER EMAR. PT NPO POST MIDNIGHT FOR PLAN FOR OR TODAY; IVF CONT PER ORDERS. BEDBATH GIVEN, CHLORHEXADINE WIPES TO R HIP. BED ALARM ON FOR SAFETY. WILL CONT TO MONITOR UNTIL REP GIVEN TO ONCOMING RN.
--- NOTE | 2019-06-29 10:32 | NUR ---
06/29/19 1032 Anatoly Hiadlgo PT HAD MARQUEZ COWAN PRESENT UPON ARRIVAL TO OR. PT RECIEVED A DUO NEB IN PRE-OP FROM [facility]
--- NOTE | 2019-06-29 10:51 | NUR ---
ASSUMED CARE ASSUMED CARE AT THIS TIME FROM JESU DOMINGO
--- NOTE | 2019-06-29 11:17 | NUR ---
PT IN OR AT THIS TIME. REPORT GIVEN TO DEREK NAILS.
--- NOTE | 2019-06-29 18:30 | NUR ---
POD 0 S/P RIGHT HIP REPAIR. VSS AND A&O AT BASELINE. DRESSING ON RIGHT HIP C/D/I WITH POLAR PAC IN PLACE. OSTOMY TO R. ABD IN PLACE AND DRAINING STOOL. ZAYAS IN PLACE AND DRAINING CLEAR/YELLOW URINE. REPORTS PAIN AT TOLERABLE LEVEL. MEDICATED PER EMAR AND REPOSITIONED PRN. PT HAS BEEN PLEASANT AND COOPERATIVE THIS AFTERNOON. ABLE TO FOLLOW SIMPLE INSTRUCTIONS AND REQUIRES FREQUENT REMINDINGS. PT IS CURRENTLY RESTING IN BED AND HAS CALL LIGHT WITHIN REACH.
--- NOTE | 2019-06-30 02:40 | NUR ---
SMOKING: PT FOUND SMOKING IN HER ROOM. PT PUT CIGARETTE OUT ON BEDSIDE DRESSER. PT EDUCATED ABOUT NO SMOKING POLICY IN HOSPITAL WELL SAFETY OF PTS AND STAFF. PT STATED "OK, I WON'T SMOKE ANYMORE, I ONLY HAD A LITTLE PIECE LEFT" PT ASKED TO GIVE PAINT POURER TO STAFF FOR HOLDING. PT STATED I DON'T HAVE A PAINT POURER AND GAVE MATCHES TO THIS RN. PAINT POURER WAS IN PT'S HAND. PT PLACED PAINT POURER BACK IN BAG AND STATED "I CAN'T GIVE YOU THIS, IT'S MY ONLY ONE" CLINICAL EDGE GLUER IN ROOM. PT DENIES HAVING ANY CIGARETTES OR LIGHTERS. CLINICAL EDGE GLUER SEARCHED PT'S BAG AND FOUND PACK OF CIGARETTES AND PAINT POURER. PT CIGARETTES AND PAINT POURER PLACED IN PT DRAWER OT BE RETURNED UPON D/C.
[2019-06-30 04:20] LABS: BASOPHILS ABSOLUTE AUTO 0.01 K/mm3 (0.00-0.23); BASOPHILS PERCENT AUTO 0 % (0-2); EOSINOPHILS ABSOLUTE AUTO 0.09 K/mm3 (0.00-0.68); EOSINOPHILS PERCENT AUTO 1 % (0-6); Hemoglobin 7.7 g/dL (11.5-16.0); IMMATURE GRAN ABSOLUTE AUTO 0.03 K/mm3 (0.00-0.10); IMMATURE GRAN PERCENT AUTO 0 % (0-1); LYMPHOCYTES ABSOLUTE AUTO 1.54 K/mm3 (0.84-5.20); LYMPHOCYTES PERCENT AUTO 14 % (21-46); MONOCYTES ABSOLUTE AUTO 1.25 K/mm3 (0.16-1.47); MONOCYTES PERCENT AUTO 11 % (4-13); Mean Corpuscular HGB 28.6 pg (26.0-34.0); Mean Corpuscular HGB Conc 30.8 g/dL (31.5-36.5); Mean Platelet Volume 10.2 fL (9.1-12.4); NEUTROPHILS ABSOLUTE AUTO 8.32 K/mm3 (1.96-9.15); NEUTROPHILS PERCENT AUTO 74 % (41-73); Platelet Count 267 K/mm3 (150-400); RDW Coefficient Variation 13.7 % (11.7-14.2); RDW Standard Deviation 46.2 fL (35.1-46.3); Red Blood Cell Count 2.69 M/mm3 (3.80-5.20); White Blood Cell Count 11.24 K/mm3 (4.00-11.30)
[2019-06-30 04:21] LABS: Mean Corpuscular Volume 93 fL (80-100)
[2019-06-30 04:35] LABS: Anion Gap 6 mmol/L (6-16); Blood Urea Nitrogen 7 mg/dL (8-24); Bun/Creatinine Ratio 8.1 (12.0-20.0); CO2, Blood 24 mmol/L (21-32); Calcium, Blood 7.9 mg/dL (8.5-10.1); Chloride, Blood 108 mmol/L (98-108); Creatinine, Blood 0.87 mg/dL (0.40-1.00); Glomerular Filtration Rate >60 (60-); Glucose, Blood 110 mg/dL (70-99); Magnesium, Blood 1.7 mg/dL (1.6-2.4); Potassium, Blood 3.6 mmol/L (3.5-5.5); Sodium, Blood 138 mmol/L (136-145)
--- NOTE | 2019-06-30 06:00 | NUR ---
POD 1 S/P R MAICOL HIP REPAIR. PT VSS T/O NIGHT, DRESSING CDI, CMS INTACT. PAIN MGD PER EMAR. PT COLLINS REG PO, OSTOMY CARE PROVIDED. PLAN TO D/C MARQUEZ COWAN THIS AM. PT FORGETFUL AND IRRITABLE AT TIMES. PT FOUND TO BE SMOKING IN ROOM, PT EDUCATED ON POLICY AND SAFETY CONCERNS, CIGARETTES LOCKED IN PT DRAWER. PT USING CALL LIGHT AT TIMES, BED ALARM ON FOR SAFETY. WILL CONT TO MONITOR UNTIL REP GIVEN TO ONCOMING RN.
--- NOTE | 2019-06-30 18:06 | NUR ---
SHIFT SUMMARY PT EATING AND DRINKING. PT BEEN ASSISTED WITH ADL'S PRN. PT BEEN MED FOR PAIN PRN. FAMILY WAS PRESENT EARLIER TODAY. PT HAS TAB ALARM IN PLACE. PT WORKED WITH THERAPY TODAY. PT BEEN COOPERATIVE TODAY.
--- NOTE | 2019-07-01 05:51 | NUR ---
SUMMARY POD # RIGHT RAFA. EVAN SELENA REMAINS C/D/I. CIRC WNL. VSS. PT IS TOLERATING PO INTAKE. VOIDING WNL. PAIN MANAGED WITH PO PAIN MEDICATION. PT HAS BEEN COMPLIANT WITH CARE THROUGH THE NIGHT. SHE WILL CALL OUT OCCASIONALLY BUT HAS REMAINED PLEASANT WITH HER MOOD. BED ALARM IS ON FOR SAFETY. 1 ASSIST TO THE BATHROOM USING FWW/GAIT BELT. WCTM & REPORT TO DAY RN
[2019-07-01 08:16] LABS: IMMATURE RETIC FRACTION 15.4 % (2.3-16.0); RETIC HGB EQUIVALENT 29.6 pg (28.20-36.60); RETICULOCYTE ABSOLUTE 0.0319 M/mm3 (0.0200-0.1100); RETICULOCYTE COUNT PERCENT 1.27 % (0.50-2.50)
[2019-07-01 08:38] LABS: Percent Saturation 3.4 % (15.0-50.0)
--- NOTE | 2019-07-01 09:00 | NUR ---
DR SIMMONS IN ROOM.
--- NOTE | 2019-07-01 15:48 | NUR ---
NURSE YEYO GIVEN REPORT AT [facility]. PT TO BE TRANSFERRED THERE LATER TODAY. IV OUT WNL EARLIER TODAY. TRANSPORT TO BE PICKING PT UP APPROX 16:00.
--- NOTE | 2019-07-01 16:21 | NUR ---
PT OUT BY TRANSPORT TO [facility], REPORT BEEN GIVEN. BELONGINGS AND PAPERWORK INCLUDING SCRIPT SENT WITH PT/TRANSPORT. DISCUSSED RECENT PAIN MEDICATION WITH TRANSPORT TO [facility]. IV WAS OUT EARLIER WNL.
== END 2019-07-01 16:19 | DRG 470 ==
LOC: ER 09:38 → SURS 12:00 → ER 12:00 → SURS 14:13
PROVIDERS: Emergency Medicine; Orthopaedic Surgery; ADMIT Hospitalist
PROC: 0SRS0JA Replacement of Left Hip Joint, Femoral Surface with Synthetic Substitute, Uncemented, Open Approach (ICD-10-PCS; principal; 2019-06-29 10:00)
DX: S72.002A Fracture of unspecified part of neck of left femur, initial encounter for closed fracture (principal); W19.XXXA Unspecified fall, initial encounter; I10 Essential (primary) hypertension; G40.909 Epilepsy, unspecified, not intractable, without status epilepticus; F17.210 Nicotine dependence, cigarettes, uncomplicated; Z87.820 Personal history of traumatic brain injury; J44.9 Chronic obstructive pulmonary disease, unspecified; Z93.3 Colostomy status
CPT/HCPCS: 36415; 51702; 71045; 72170; 73502; 80048; 80053; 81003; 82607; 82728; 82746; 83540; 83550; 83735; 85025; 85045; 88305; 88311; 93005; 93010; 94640; 94760; 94762; 96374-59; 96375-59; 97110; 97116; 97161; 97166; 97530; 97535; 99285-25; A9270; A9270-GY; C1776; J0171; J0690; J0735; J1100; J1885; J2250; J2270; J2370; J2405; J2704; J2710; J2795; J3010; J3370; J3480

== ENCOUNTER 2020-03-02 16:31 | Emergency (ER) | payer OTHER ==
[~2020-03-02] VITALS: Ht 170.2 cm; Wt 54.4 kg
[~2020-03-02 16:31] MED LIST changes: +COMBIVENT RESPIM4 GM INH; +Halcion0.25 MG PO; +Hydrocodone-Ap1 EA20 PO; +PENVK500 PO; +VERAPAMIL HCL120 MG PO
[2020-03-02] MEDS ORDERED: Aspirin EC81 MG PO (16:44)
== END 2020-03-02 19:20 | disposition home or self-care (01) ==
LOC: ER 16:31
DX: S32.039A Unspecified fracture of third lumbar vertebra, initial encounter for closed fracture (principal); Z88.8 Allergy status to other drugs, medicaments and biological substances; Z79.82 Long term (current) use of aspirin; Z79.899 Other long term (current) drug therapy; G40.909 Epilepsy, unspecified, not intractable, without status epilepticus; I10 Essential (primary) hypertension; J44.9 Chronic obstructive pulmonary disease, unspecified; F17.210 Nicotine dependence, cigarettes, uncomplicated; W18.30XA Fall on same level, unspecified, initial encounter
CPT/HCPCS: 72100; 73502; 99283-25

== ENCOUNTER 2020-10-18 11:34 | Emergency (ER) | payer OTHER ==
[~2020-10-18] VITALS: Ht 157.5 cm; Wt 45.4 kg
[~2020-10-18 11:34] MED LIST changes: +Aspirin EC81 MG PO
== END 2020-10-18 12:03 | disposition left against medical advice (07) ==
LOC: ER 11:34
DX: M54.6 Pain in thoracic spine (principal); M54.5 Low back pain; J44.9 Chronic obstructive pulmonary disease, unspecified; I10 Essential (primary) hypertension; F17.210 Nicotine dependence, cigarettes, uncomplicated; Z88.8 Allergy status to other drugs, medicaments and biological substances; Z79.899 Other long term (current) drug therapy
CPT/HCPCS: 99283

== ENCOUNTER 2020-10-18 12:44 | Emergency (ER) | payer OTHER ==
[~2020-10-18] VITALS: Ht 172.7 cm; Wt 63.5 kg
== END 2020-10-18 13:55 | disposition left against medical advice (07) ==
LOC: ER 12:44
DX: Z53.21 Procedure and treatment not carried out due to patient leaving prior to being seen by health care provider (principal)

== ENCOUNTER 2020-11-03 06:06 | Emergency (ER) | payer OTHER ==
[~2020-11-03] VITALS: Ht 170.2 cm; Wt 67.1 kg
[2020-11-03] MEDS ORDERED: IBUP600 PO (06:40)
[2020-11-03] MEDS ORDERED: ULTRA-LIGHT RO1 EACH MC (06:42)
[2020-11-03] MEDS ORDERED: HYDR1TAB94 PO (10:58)
== END 2020-11-03 06:59 | disposition home or self-care (01) ==
LOC: ER 06:06
DX: S82.035A Nondisplaced transverse fracture of left patella, initial encounter for closed fracture (principal); G40.909 Epilepsy, unspecified, not intractable, without status epilepticus; J44.9 Chronic obstructive pulmonary disease, unspecified; I10 Essential (primary) hypertension; F17.210 Nicotine dependence, cigarettes, uncomplicated; Z88.8 Allergy status to other drugs, medicaments and biological substances; Z79.899 Other long term (current) drug therapy
CPT/HCPCS: 73562-LT; 73700; 99283-25; A9270

== ENCOUNTER 2020-11-04 07:19 | Emergency (ER) | payer OTHER ==
[~2020-11-04] VITALS: Ht 170.2 cm; Wt 67.1 kg
[~2020-11-04 07:19] MED LIST changes: +HYDR1TAB94 PO; +ULTRA-LIGHT RO1 EACH MC
== END 2020-11-04 09:00 ==
LOC: ER 07:19
DX: S82.002A Unspecified fracture of left patella, initial encounter for closed fracture (principal); J44.9 Chronic obstructive pulmonary disease, unspecified; I10 Essential (primary) hypertension; Z88.8 Allergy status to other drugs, medicaments and biological substances; Z79.899 Other long term (current) drug therapy; F17.210 Nicotine dependence, cigarettes, uncomplicated; W18.30XA Fall on same level, unspecified, initial encounter; Y93.01 Activity, walking, marching and hiking; Y92.009 Unspecified place in unspecified non-institutional (private) residence as the place of occurrence of the external cause
CPT/HCPCS: 29505; 99283

== ENCOUNTER 2020-11-07 07:04 | Emergency (ER) | payer OTHER ==
[~2020-11-07] VITALS: Ht 172.7 cm; Wt 66.2 kg
[2020-11-08] MEDS ORDERED: HYDR1TAB94 PO (13:17)
== END 2020-11-07 08:44 | disposition home or self-care (01) ==
LOC: ER 07:04
DX: S82.002A Unspecified fracture of left patella, initial encounter for closed fracture (principal); I10 Essential (primary) hypertension; J44.9 Chronic obstructive pulmonary disease, unspecified; F17.210 Nicotine dependence, cigarettes, uncomplicated; Z88.8 Allergy status to other drugs, medicaments and biological substances; Z79.899 Other long term (current) drug therapy; W18.30XA Fall on same level, unspecified, initial encounter
CPT/HCPCS: 73562-LT; 99283-25; A9270

== ENCOUNTER 2020-11-08 11:49 | Emergency (ER) | payer OTHER ==
[~2020-11-08] VITALS: Ht 172.7 cm; Wt 66.2 kg
[2020-11-08] MEDS ORDERED: HYDR1TAB94 PO (13:17)
== END 2020-11-08 13:16 | disposition home or self-care (01) ==
LOC: ER 11:49
DX: S82.002A Unspecified fracture of left patella, initial encounter for closed fracture (principal); J44.9 Chronic obstructive pulmonary disease, unspecified; I10 Essential (primary) hypertension; F17.210 Nicotine dependence, cigarettes, uncomplicated; Z79.899 Other long term (current) drug therapy; Z88.8 Allergy status to other drugs, medicaments and biological substances; W18.30XA Fall on same level, unspecified, initial encounter
CPT/HCPCS: 99283; A9270

== ENCOUNTER 2020-11-09 08:23 | Emergency (ER) | payer OTHER ==
[~2020-11-09] VITALS: Ht 172.7 cm; Wt 66.2 kg
[2020-11-10] MEDS ORDERED: Roxicodone5 MG PO (15:12)
== END 2020-11-09 09:53 | disposition home or self-care (01) ==
LOC: ER 08:23
DX: S82.002A Unspecified fracture of left patella, initial encounter for closed fracture (principal); J44.9 Chronic obstructive pulmonary disease, unspecified; I10 Essential (primary) hypertension; F17.210 Nicotine dependence, cigarettes, uncomplicated; Z91.19 Patient's noncompliance with other medical treatment and regimen; Z79.899 Other long term (current) drug therapy; Z88.8 Allergy status to other drugs, medicaments and biological substances; W18.30XA Fall on same level, unspecified, initial encounter
CPT/HCPCS: 73560-LT; 99283-25; J7030

== ENCOUNTER 2020-11-10 12:39 | Emergency (ER) | payer OTHER ==
[~2020-11-10] VITALS: Ht 170.2 cm; Wt 51.7 kg
[2020-11-10] MEDS ORDERED: Roxicodone5 MG PO (15:12)
== END 2020-11-10 15:38 | disposition home or self-care (01) ==
LOC: ER 12:39
DX: S09.90XA Unspecified injury of head, initial encounter (principal); M25.562 Pain in left knee; Z87.828 Personal history of other (healed) physical injury and trauma; Z91.81 History of falling; J44.9 Chronic obstructive pulmonary disease, unspecified; F17.210 Nicotine dependence, cigarettes, uncomplicated; I10 Essential (primary) hypertension; Z88.8 Allergy status to other drugs, medicaments and biological substances; Z79.899 Other long term (current) drug therapy
CPT/HCPCS: 70450; 73562-LT; 99284-25; A9270

== ENCOUNTER 2021-01-28 23:37 | Emergency (ER) | payer OTHER ==
[~2021-01-28] VITALS: Ht 175.3 cm; Wt 56.7 kg
[~2021-01-28 23:37] MED LIST changes: +Roxicodone5 MG PO
[2021-01-28] MEDS ORDERED: AMOCLA875 PO (23:46)
[2021-01-28] MEDS ORDERED: NAPR500 PO (23:46)
== END 2021-01-29 00:45 | disposition home or self-care (01) ==
LOC: ER 23:37
DX: K08.89 Other specified disorders of teeth and supporting structures (principal); J44.9 Chronic obstructive pulmonary disease, unspecified; I10 Essential (primary) hypertension; Z87.891 Personal history of nicotine dependence
CPT/HCPCS: 99283; A9270

== ENCOUNTER 2021-02-15 13:09 | Emergency (ER) | payer OTHER ==
[~2021-02-15] VITALS: Ht 170.2 cm; Wt 63.5 kg
[~2021-02-15 13:09] MED LIST changes: +AMOCLA875 PO
== END 2021-02-15 14:50 | disposition home or self-care (01) ==
LOC: ER 13:09
DX: Z43.3 Encounter for attention to colostomy (principal); J44.9 Chronic obstructive pulmonary disease, unspecified; I10 Essential (primary) hypertension; Z88.8 Allergy status to other drugs, medicaments and biological substances; Z79.899 Other long term (current) drug therapy
CPT/HCPCS: 99282

== ENCOUNTER 2021-02-16 12:05 | Emergency (ER) | payer OTHER ==
[~2021-02-16] VITALS: Ht 172.7 cm; Wt 67.1 kg
== END 2021-02-16 12:46 | disposition home or self-care (01) ==
LOC: ER 12:05
DX: Z43.3 Encounter for attention to colostomy (principal); J44.9 Chronic obstructive pulmonary disease, unspecified; I10 Essential (primary) hypertension
CPT/HCPCS: 99282

== ENCOUNTER 2021-02-18 14:33 | Emergency (ER) | payer OTHER ==
[~2021-02-18] VITALS: Ht 170.2 cm; Wt 66.2 kg
== END 2021-02-18 20:57 | disposition home or self-care (01) ==
LOC: ER 14:33
DX: Z43.3 Encounter for attention to colostomy (principal); J44.9 Chronic obstructive pulmonary disease, unspecified; Z88.8 Allergy status to other drugs, medicaments and biological substances; Z79.899 Other long term (current) drug therapy; Z87.891 Personal history of nicotine dependence
CPT/HCPCS: 99283

== ENCOUNTER 2021-03-05 09:26 | Emergency (ER) | payer OTHER ==
[~2021-03-05] VITALS: Ht 170.2 cm; Wt 66.2 kg
[2021-03-05] MEDS ORDERED: CLIN300 PO (10:25)
== END 2021-03-05 10:59 | disposition home or self-care (01) ==
LOC: ER 09:26
DX: Z43.2 Encounter for attention to ileostomy (principal); I10 Essential (primary) hypertension; Z88.8 Allergy status to other drugs, medicaments and biological substances; Z79.899 Other long term (current) drug therapy
CPT/HCPCS: 99283

== ENCOUNTER 2021-03-07 06:10 | Emergency (ER) | payer OTHER ==
[~2021-03-07] VITALS: Ht 170.2 cm; Wt 66.2 kg
[~2021-03-07 06:10] MED LIST changes: +CLIN300 PO
== END 2021-03-07 07:12 | disposition left against medical advice (07) ==
LOC: ER 06:10
DX: Z53.21 Procedure and treatment not carried out due to patient leaving prior to being seen by health care provider (principal)

== ENCOUNTER 2021-03-10 09:11 | Emergency (ER) | payer OTHER ==
[~2021-03-10] VITALS: Ht 160 cm; Wt 59.0 kg
== END 2021-03-10 10:57 | disposition home or self-care (01) ==
LOC: ER 09:11
DX: Z43.3 Encounter for attention to colostomy (principal); J44.9 Chronic obstructive pulmonary disease, unspecified; I10 Essential (primary) hypertension; Z88.8 Allergy status to other drugs, medicaments and biological substances; Z79.899 Other long term (current) drug therapy
CPT/HCPCS: 99282

== ENCOUNTER 2021-03-11 13:13 | Emergency (ER) | payer OTHER ==
[~2021-03-11] VITALS: Ht 170.2 cm; Wt 59.0 kg
== END 2021-03-11 14:58 | disposition left against medical advice (07) ==
LOC: ER 13:13
DX: R10.84 Generalized abdominal pain (principal); Z79.899 Other long term (current) drug therapy; Z53.21 Procedure and treatment not carried out due to patient leaving prior to being seen by health care provider
CPT/HCPCS: 99282

== ENCOUNTER 2021-03-12 13:53 | Emergency (ER) | payer OTHER ==
[~2021-03-12] VITALS: Ht 170.2 cm; Wt 66.2 kg
== END 2021-03-12 14:15 | disposition left against medical advice (07) ==
LOC: ER 13:53
DX: Z43.3 Encounter for attention to colostomy (principal); Z53.21 Procedure and treatment not carried out due to patient leaving prior to being seen by health care provider
CPT/HCPCS: 99282

== ENCOUNTER 2021-03-14 13:36 | Emergency (ER) | payer OTHER ==
[2021-03-16] MEDS ORDERED: PENVK500 PO (18:47)
== END 2021-03-16 14:17 | disposition left against medical advice (07) ==
LOC: ER 13:36
DX: Z53.21 Procedure and treatment not carried out due to patient leaving prior to being seen by health care provider (principal)

== ENCOUNTER 2021-03-14 18:51 | Emergency (ER) | payer OTHER ==
[~2021-03-14] VITALS: Ht 172.7 cm; Wt 45.4 kg
== END 2021-03-14 21:28 | disposition home or self-care (01) ==
LOC: ER 18:51
DX: Z43.3 Encounter for attention to colostomy (principal); G40.909 Epilepsy, unspecified, not intractable, without status epilepticus; I10 Essential (primary) hypertension; J44.9 Chronic obstructive pulmonary disease, unspecified; Z87.891 Personal history of nicotine dependence; Z88.8 Allergy status to other drugs, medicaments and biological substances; Z79.899 Other long term (current) drug therapy
CPT/HCPCS: 99282

== ENCOUNTER 2021-03-16 16:44 | Emergency (ER) | payer OTHER ==
[~2021-03-16] VITALS: Ht 172.7 cm; Wt 66.2 kg
[2021-03-16] MEDS ORDERED: PENVK500 PO (18:47)
== END 2021-03-16 20:00 | disposition home or self-care (01) ==
LOC: ER 16:44
DX: K02.9 Dental caries, unspecified (principal); G40.909 Epilepsy, unspecified, not intractable, without status epilepticus; K03.81 Cracked tooth; G43.909 Migraine, unspecified, not intractable, without status migrainosus; J44.9 Chronic obstructive pulmonary disease, unspecified; I10 Essential (primary) hypertension; R10.84 Generalized abdominal pain; Z88.8 Allergy status to other drugs, medicaments and biological substances; Z79.899 Other long term (current) drug therapy; Z87.891 Personal history of nicotine dependence
CPT/HCPCS: 99283; A9270

== ENCOUNTER 2021-03-21 13:39 | Emergency (ER) | payer OTHER ==
[~2021-03-21] VITALS: Ht 170.2 cm; Wt 49.9 kg
== END 2021-03-21 17:00 | disposition home or self-care (01) ==
LOC: ER 13:39
DX: R10.9 Unspecified abdominal pain (principal); J44.9 Chronic obstructive pulmonary disease, unspecified; R56.9 Unspecified convulsions; G89.29 Other chronic pain; Z93.3 Colostomy status; Z79.899 Other long term (current) drug therapy
CPT/HCPCS: 99284

== ENCOUNTER 2021-03-29 18:51 | Emergency (ER) | payer OTHER ==
[~2021-03-29] VITALS: Ht 170.2 cm; Wt 56.7 kg
[2021-03-29] MEDS ORDERED: ALBU8HFA2 INH (22:16)
[2021-03-29] MEDS ORDERED: COMBIVENT RESPIM4 G1 INH (22:17)
[2021-03-29] MEDS ORDERED: VERA120ERB PO (22:28)
[2021-03-29] MEDS ORDERED: TROKENDI XR200 MG PO (22:28)
== END 2021-03-29 23:30 | disposition home or self-care (01) ==
LOC: ER 18:51
DX: G40.409 Other generalized epilepsy and epileptic syndromes, not intractable, without status epilepticus (principal); I10 Essential (primary) hypertension; J44.9 Chronic obstructive pulmonary disease, unspecified; Z79.899 Other long term (current) drug therapy; Z88.8 Allergy status to other drugs, medicaments and biological substances
CPT/HCPCS: 99284; A9270

== ENCOUNTER 2021-04-03 11:10 | Emergency (ER) | payer OTHER ==
[~2021-04-03] VITALS: Ht 170.2 cm; Wt 65.8 kg
[~2021-04-03 11:10] MED LIST changes: +ALBU8HFA2 INH; +COMBIVENT RESPIM4 G1 INH; +VERA120ERB PO
== END 2021-04-03 12:17 | disposition home or self-care (01) ==
LOC: ER 11:10
DX: Z76.0 Encounter for issue of repeat prescription (principal); G40.909 Epilepsy, unspecified, not intractable, without status epilepticus; H44.9 Unspecified disorder of globe; I10 Essential (primary) hypertension; Z79.899 Other long term (current) drug therapy
CPT/HCPCS: 99281

== ENCOUNTER 2021-04-03 17:28 | Emergency (ER) | payer OTHER ==
[~2021-04-03] VITALS: Ht 170.2 cm; Wt 63.5 kg
== END 2021-04-03 18:00 | disposition home or self-care (01) ==
LOC: ER 17:28
DX: Z43.2 Encounter for attention to ileostomy (principal); R10.9 Unspecified abdominal pain; J44.9 Chronic obstructive pulmonary disease, unspecified; G40.909 Epilepsy, unspecified, not intractable, without status epilepticus; I10 Essential (primary) hypertension; Z88.8 Allergy status to other drugs, medicaments and biological substances; Z79.899 Other long term (current) drug therapy; Z87.891 Personal history of nicotine dependence
CPT/HCPCS: 99282

== ENCOUNTER 2021-04-04 08:53 | Emergency (ER) | payer OTHER ==
[~2021-04-04] VITALS: Ht 170.2 cm; Wt 56.7 kg
== END 2021-04-04 09:23 | disposition home or self-care (01) ==
LOC: ER 08:53
DX: L25.8 Unspecified contact dermatitis due to other agents (principal); Z93.3 Colostomy status
CPT/HCPCS: 99282

== ENCOUNTER 2021-04-04 14:04 | Emergency (ER) | payer OTHER ==
[~2021-04-04] VITALS: Ht 165.1 cm; Wt 49.9 kg
== END 2021-04-04 14:20 | disposition home or self-care (01) ==
LOC: ER 14:04
DX: Z00.00 Encounter for general adult medical examination without abnormal findings (principal); Z88.8 Allergy status to other drugs, medicaments and biological substances; I10 Essential (primary) hypertension; J44.9 Chronic obstructive pulmonary disease, unspecified; G40.909 Epilepsy, unspecified, not intractable, without status epilepticus; Z79.899 Other long term (current) drug therapy; Z87.891 Personal history of nicotine dependence; Z93.2 Ileostomy status
CPT/HCPCS: 99282

== ENCOUNTER 2021-04-08 22:36 | Emergency (ER) | payer OTHER ==
[~2021-04-08] VITALS: Ht 170.2 cm; Wt 66.7 kg
[2021-04-08] MEDS ORDERED: TOPI100 PO (22:52)
[2021-04-08] MEDS ORDERED: VERA120ERB PO (22:52)
== END 2021-04-08 23:36 | disposition home or self-care (01) ==
LOC: ER 22:36
DX: Z76.0 Encounter for issue of repeat prescription (principal); G40.909 Epilepsy, unspecified, not intractable, without status epilepticus; J44.9 Chronic obstructive pulmonary disease, unspecified; I10 Essential (primary) hypertension; Z86.73 Personal history of transient ischemic attack (TIA), and cerebral infarction without residual deficits; Z87.891 Personal history of nicotine dependence; Z88.8 Allergy status to other drugs, medicaments and biological substances; Z79.899 Other long term (current) drug therapy
CPT/HCPCS: 99283

== ENCOUNTER 2021-04-25 17:33 | Emergency (ER) | payer OTHER ==
[~2021-04-25] VITALS: Ht 170.2 cm; Wt 66.2 kg
[~2021-04-25 17:33] MED LIST changes: +TOPI100 PO
[2021-04-25] MEDS ORDERED: COMBIVENT RESPIM4 G1 (19:23)
== END 2021-04-25 19:52 | disposition home or self-care (01) ==
LOC: ER 17:33
DX: G40.909 Epilepsy, unspecified, not intractable, without status epilepticus (principal); I10 Essential (primary) hypertension; J44.9 Chronic obstructive pulmonary disease, unspecified; G43.909 Migraine, unspecified, not intractable, without status migrainosus; Z23 Encounter for immunization; Z88.8 Allergy status to other drugs, medicaments and biological substances; Z79.899 Other long term (current) drug therapy
CPT/HCPCS: 70450; 72125; 73030; 90471; 90714; 99284-25

== ENCOUNTER 2021-05-01 15:08 | Emergency (ER) | payer OTHER ==
[~2021-05-01] VITALS: Ht 162.6 cm; Wt 45.4 kg
[~2021-05-01 15:08] MED LIST changes: +COMBIVENT RESPIM4 G1
== END 2021-05-01 16:15 | disposition home or self-care (01) ==
LOC: ER 15:08
DX: Z43.3 Encounter for attention to colostomy (principal); I10 Essential (primary) hypertension; G40.909 Epilepsy, unspecified, not intractable, without status epilepticus; J44.9 Chronic obstructive pulmonary disease, unspecified; Z88.8 Allergy status to other drugs, medicaments and biological substances; Z79.899 Other long term (current) drug therapy

== ENCOUNTER 2021-05-01 20:54 | Emergency (ER) | payer OTHER ==
[~2021-05-01] VITALS: Ht 170.2 cm; Wt 49.9 kg
== END 2021-05-01 21:56 | disposition home or self-care (01) ==
LOC: ER 20:54
DX: S09.90XA Unspecified injury of head, initial encounter (principal); Z53.21 Procedure and treatment not carried out due to patient leaving prior to being seen by health care provider; I10 Essential (primary) hypertension; J44.9 Chronic obstructive pulmonary disease, unspecified; G43.909 Migraine, unspecified, not intractable, without status migrainosus; Z88.8 Allergy status to other drugs, medicaments and biological substances; Z79.899 Other long term (current) drug therapy; Z86.73 Personal history of transient ischemic attack (TIA), and cerebral infarction without residual deficits; W01.0XXA Fall on same level from slipping, tripping and stumbling without subsequent striking against object, initial encounter

== ENCOUNTER 2021-05-01 22:01 | Emergency (ER) | payer OTHER ==
[~2021-05-01] VITALS: Ht 170.2 cm; Wt 49.9 kg
== END 2021-05-01 22:07 | disposition home or self-care (01) ==
LOC: ER 22:01
DX: Z00.8 Encounter for other general examination (principal); I10 Essential (primary) hypertension; J44.9 Chronic obstructive pulmonary disease, unspecified; G40.909 Epilepsy, unspecified, not intractable, without status epilepticus; Z88.8 Allergy status to other drugs, medicaments and biological substances; Z79.899 Other long term (current) drug therapy; Z86.73 Personal history of transient ischemic attack (TIA), and cerebral infarction without residual deficits

== ENCOUNTER 2021-05-02 12:30 | Emergency (ER) | payer OTHER ==
[~2021-05-02] VITALS: Ht 160 cm; Wt 59.0 kg
== END 2021-05-02 13:43 | disposition home or self-care (01) ==
LOC: ER 12:30
DX: R51.9 Headache, unspecified (principal); R10.9 Unspecified abdominal pain; J44.9 Chronic obstructive pulmonary disease, unspecified; G40.909 Epilepsy, unspecified, not intractable, without status epilepticus; I10 Essential (primary) hypertension; Z86.73 Personal history of transient ischemic attack (TIA), and cerebral infarction without residual deficits; Z88.8 Allergy status to other drugs, medicaments and biological substances; Z79.899 Other long term (current) drug therapy; W18.30XA Fall on same level, unspecified, initial encounter
CPT/HCPCS: 99283

== ENCOUNTER 2021-05-03 10:07 | Emergency (ER) | payer OTHER ==
[~2021-05-03] VITALS: Ht 165.1 cm; Wt 54.4 kg
== END 2021-05-03 10:55 | disposition home or self-care (01) ==
LOC: ER 10:07
DX: G40.909 Epilepsy, unspecified, not intractable, without status epilepticus (principal); J44.9 Chronic obstructive pulmonary disease, unspecified; I10 Essential (primary) hypertension; Z86.73 Personal history of transient ischemic attack (TIA), and cerebral infarction without residual deficits; Z88.8 Allergy status to other drugs, medicaments and biological substances; Z79.899 Other long term (current) drug therapy
CPT/HCPCS: 99283

== ENCOUNTER 2021-05-04 08:58 | Emergency (ER) | payer OTHER ==
[~2021-05-04] VITALS: Ht 170.2 cm; Wt 49.9 kg
== END 2021-05-04 09:20 | disposition home or self-care (01) ==
LOC: ER 08:58
DX: Z00.8 Encounter for other general examination (principal); R07.9 Chest pain, unspecified; R10.31 Right lower quadrant pain; Z88.8 Allergy status to other drugs, medicaments and biological substances; Z79.899 Other long term (current) drug therapy; G40.909 Epilepsy, unspecified, not intractable, without status epilepticus; J44.9 Chronic obstructive pulmonary disease, unspecified; I10 Essential (primary) hypertension; Z86.73 Personal history of transient ischemic attack (TIA), and cerebral infarction without residual deficits
CPT/HCPCS: 99282

== ENCOUNTER 2021-05-05 09:43 | Emergency (ER) | payer OTHER ==
[~2021-05-05] VITALS: Ht 170.2 cm; Wt 49.9 kg
== END 2021-05-05 10:22 | disposition home or self-care (01) ==
LOC: ER 09:43
DX: G40.909 Epilepsy, unspecified, not intractable, without status epilepticus (principal); J44.9 Chronic obstructive pulmonary disease, unspecified; I10 Essential (primary) hypertension; Z88.8 Allergy status to other drugs, medicaments and biological substances; Z79.899 Other long term (current) drug therapy; Z86.73 Personal history of transient ischemic attack (TIA), and cerebral infarction without residual deficits
CPT/HCPCS: 99284

== ENCOUNTER 2021-05-06 09:11 | Emergency (ER) | payer OTHER ==
[~2021-05-06] VITALS: Ht 172.7 cm; Wt 38.6 kg
[2021-05-07] MEDS ORDERED: TOPI100 PO (21:22)
[2021-05-11] MEDS ORDERED: TROKENDI XR200 MG PO (11:38)
== END 2021-05-06 10:10 | disposition home or self-care (01) ==
LOC: ER 09:11
DX: Z04.3 Encounter for examination and observation following other accident (principal); F43.9 Reaction to severe stress, unspecified; I10 Essential (primary) hypertension; G40.909 Epilepsy, unspecified, not intractable, without status epilepticus; J44.9 Chronic obstructive pulmonary disease, unspecified; Z88.8 Allergy status to other drugs, medicaments and biological substances; Z79.899 Other long term (current) drug therapy; Z86.73 Personal history of transient ischemic attack (TIA), and cerebral infarction without residual deficits; W18.30XA Fall on same level, unspecified, initial encounter
CPT/HCPCS: 99282

== ENCOUNTER 2021-05-06 14:01 | Emergency (ER) | payer OTHER ==
[~2021-05-06] VITALS: Ht 167.6 cm; Wt 49.9 kg
[2021-05-07] MEDS ORDERED: TOPI100 PO (21:22)
[2021-05-11] MEDS ORDERED: TROKENDI XR200 MG PO (11:38)
== END 2021-05-06 14:30 | disposition home or self-care (01) ==
LOC: ER 14:01
DX: I10 Essential (primary) hypertension (principal); G40.909 Epilepsy, unspecified, not intractable, without status epilepticus; Z76.0 Encounter for issue of repeat prescription; G43.909 Migraine, unspecified, not intractable, without status migrainosus; J44.9 Chronic obstructive pulmonary disease, unspecified; Z88.8 Allergy status to other drugs, medicaments and biological substances; Z79.899 Other long term (current) drug therapy; Z86.73 Personal history of transient ischemic attack (TIA), and cerebral infarction without residual deficits; Z87.891 Personal history of nicotine dependence; W18.30XA Fall on same level, unspecified, initial encounter
CPT/HCPCS: 99281

== ENCOUNTER 2021-05-07 07:03 | Emergency (ER) | payer OTHER ==
[~2021-05-07] VITALS: Ht 170.2 cm; Wt 49.9 kg
[2021-05-07] MEDS ORDERED: TOPI100 PO (21:22)
[2021-05-11] MEDS ORDERED: TROKENDI XR200 MG PO (11:38)
== END 2021-05-07 07:45 | disposition home or self-care (01) ==
LOC: ER 07:03
DX: R56.9 Unspecified convulsions (principal); S51.812A Laceration without foreign body of left forearm, initial encounter; J44.9 Chronic obstructive pulmonary disease, unspecified; I10 Essential (primary) hypertension; Z86.73 Personal history of transient ischemic attack (TIA), and cerebral infarction without residual deficits; Z88.8 Allergy status to other drugs, medicaments and biological substances; Z79.899 Other long term (current) drug therapy; W22.8XXA Striking against or struck by other objects, initial encounter
CPT/HCPCS: 99283

== ENCOUNTER 2021-05-07 17:36 | Emergency (ER) | payer OTHER ==
[~2021-05-07] VITALS: Ht 170.2 cm; Wt 59.0 kg
[2021-05-07 21:20] LABS: Chloride (POC) 114 mmol/L (98-108); Creatinine (POC) 0.7 mg/dL (0.6-1.0); Glucose (ISTAT POC) 87 mg/dL (70-99); Hemoglobin (POC) 8.5 g/dL (12.0-16.0); Potassium (POC) 3.3 mmol/L (3.5-5.5); Sodium (POC) 144 mmol/L (135-148); Total CO2 (POC) 23 mmol/L (21-32)
[2021-05-07] MEDS ORDERED: TOPI100 PO (21:22)
[2021-05-11] MEDS ORDERED: TROKENDI XR200 MG PO (11:38)
== END 2021-05-07 23:10 | disposition home or self-care (01) ==
LOC: ER 17:36
PROVIDERS: Emergency Medicine
DX: R55 Syncope and collapse (principal); S40.811A Abrasion of right upper arm, initial encounter; G40.909 Epilepsy, unspecified, not intractable, without status epilepticus; J44.9 Chronic obstructive pulmonary disease, unspecified; I10 Essential (primary) hypertension; Z86.73 Personal history of transient ischemic attack (TIA), and cerebral infarction without residual deficits; Z87.891 Personal history of nicotine dependence; D64.9 Anemia, unspecified; Z88.8 Allergy status to other drugs, medicaments and biological substances; Z79.899 Other long term (current) drug therapy; W19.XXXA Unspecified fall, initial encounter
CPT/HCPCS: 71046; 80047; 85014; 93005; 93010; 99284-25

== ENCOUNTER 2021-05-08 16:53 | Emergency (ER) | payer OTHER ==
[~2021-05-08] VITALS: Ht 170.2 cm; Wt 52.2 kg
[2021-05-11] MEDS ORDERED: TROKENDI XR200 MG PO (11:38)
== END 2021-05-08 18:32 | disposition home or self-care (01) ==
LOC: ER 16:53
DX: S80.211A Abrasion, right knee, initial encounter (principal); G40.909 Epilepsy, unspecified, not intractable, without status epilepticus; I10 Essential (primary) hypertension; J44.9 Chronic obstructive pulmonary disease, unspecified; Z88.8 Allergy status to other drugs, medicaments and biological substances; Z79.899 Other long term (current) drug therapy; Z86.73 Personal history of transient ischemic attack (TIA), and cerebral infarction without residual deficits; Z87.891 Personal history of nicotine dependence; W18.30XA Fall on same level, unspecified, initial encounter; Y92.524 Gas station as the place of occurrence of the external cause
CPT/HCPCS: 73560-RT; 99283-25; A9270

== ENCOUNTER 2021-05-09 10:55 | Emergency (ER) | payer OTHER ==
[~2021-05-09] VITALS: Ht 165.1 cm; Wt 43.1 kg
[2021-05-11] MEDS ORDERED: TROKENDI XR200 MG PO (11:38)
== END 2021-05-09 12:30 | disposition home or self-care (01) ==
LOC: ER 10:55
DX: Z43.3 Encounter for attention to colostomy (principal); Z88.8 Allergy status to other drugs, medicaments and biological substances; Z79.899 Other long term (current) drug therapy
CPT/HCPCS: 99282

== ENCOUNTER 2021-05-09 15:26 | Emergency (ER) | payer OTHER ==
[~2021-05-09] VITALS: Ht 162.6 cm; Wt 47.6 kg
[2021-05-11] MEDS ORDERED: TROKENDI XR200 MG PO (11:38)
== END 2021-05-09 15:40 | disposition home or self-care (01) ==
LOC: ER 15:26
DX: S80.211A Abrasion, right knee, initial encounter (principal); G40.909 Epilepsy, unspecified, not intractable, without status epilepticus; J44.9 Chronic obstructive pulmonary disease, unspecified; I10 Essential (primary) hypertension; Z86.73 Personal history of transient ischemic attack (TIA), and cerebral infarction without residual deficits; Z88.8 Allergy status to other drugs, medicaments and biological substances; Z79.899 Other long term (current) drug therapy; Z87.891 Personal history of nicotine dependence; W18.30XA Fall on same level, unspecified, initial encounter
CPT/HCPCS: 99283

== ENCOUNTER 2021-05-10 05:49 | Emergency (ER) | payer OTHER ==
[~2021-05-10] VITALS: Ht 170.2 cm; Wt 66.2 kg
[2021-05-11] MEDS ORDERED: TROKENDI XR200 MG PO (11:38)
== END 2021-05-10 06:33 | disposition home or self-care (01) ==
LOC: ER 05:49
DX: Z43.3 Encounter for attention to colostomy (principal); I10 Essential (primary) hypertension; G40.909 Epilepsy, unspecified, not intractable, without status epilepticus; J44.9 Chronic obstructive pulmonary disease, unspecified; G43.909 Migraine, unspecified, not intractable, without status migrainosus; Z86.73 Personal history of transient ischemic attack (TIA), and cerebral infarction without residual deficits; Z88.8 Allergy status to other drugs, medicaments and biological substances; Z79.899 Other long term (current) drug therapy
CPT/HCPCS: 99282

== ENCOUNTER 2021-05-11 19:03 | Emergency (ER) | payer OTHER ==
[~2021-05-11] VITALS: Ht 167.6 cm; Wt 56.7 kg
[2021-05-12] MEDS ORDERED: TOPI100 PO (22:17)
== END 2021-05-11 19:52 | disposition home or self-care (01) ==
LOC: ER 19:03
DX: Z00.8 Encounter for other general examination (principal); I10 Essential (primary) hypertension; J44.9 Chronic obstructive pulmonary disease, unspecified; G43.909 Migraine, unspecified, not intractable, without status migrainosus; Z86.73 Personal history of transient ischemic attack (TIA), and cerebral infarction without residual deficits; Z88.8 Allergy status to other drugs, medicaments and biological substances; Z79.899 Other long term (current) drug therapy
CPT/HCPCS: 99283

== ENCOUNTER 2021-05-12 05:46 | Emergency (ER) | payer OTHER ==
[~2021-05-12] VITALS: Ht 170.2 cm; Wt 66.2 kg
[2021-05-12] MEDS ORDERED: TOPI100 PO (22:17)
[2021-05-16] MEDS ORDERED: VERA120 PO (09:13)
== END 2021-05-12 06:20 | disposition home or self-care (01) ==
LOC: ER 05:46
DX: G40.909 Epilepsy, unspecified, not intractable, without status epilepticus (principal); J44.9 Chronic obstructive pulmonary disease, unspecified; G43.909 Migraine, unspecified, not intractable, without status migrainosus; I10 Essential (primary) hypertension; Z86.73 Personal history of transient ischemic attack (TIA), and cerebral infarction without residual deficits; Z88.8 Allergy status to other drugs, medicaments and biological substances; Z79.899 Other long term (current) drug therapy
CPT/HCPCS: 99284

== ENCOUNTER 2021-05-12 09:06 | Emergency (ER) | payer OTHER ==
[~2021-05-12] VITALS: Ht 165.1 cm; Wt 49.9 kg
[2021-05-12] MEDS ORDERED: TOPI100 PO (22:17)
[2021-05-16] MEDS ORDERED: VERA120 PO (09:13)
== END 2021-05-12 09:21 | disposition home or self-care (01) ==
LOC: ER 09:06
DX: G40.909 Epilepsy, unspecified, not intractable, without status epilepticus (principal); Z76.0 Encounter for issue of repeat prescription; Z88.8 Allergy status to other drugs, medicaments and biological substances; J44.9 Chronic obstructive pulmonary disease, unspecified; G43.909 Migraine, unspecified, not intractable, without status migrainosus; I10 Essential (primary) hypertension; Z86.73 Personal history of transient ischemic attack (TIA), and cerebral infarction without residual deficits; Z87.891 Personal history of nicotine dependence
CPT/HCPCS: 99281

== ENCOUNTER 2021-05-12 12:45 | Emergency (ER) | payer OTHER ==
[~2021-05-12] VITALS: Ht 172.7 cm; Wt 49.9 kg
[2021-05-12] MEDS ORDERED: TOPI100 PO (22:17)
[2021-05-16] MEDS ORDERED: VERA120 PO (09:13)
== END 2021-05-12 13:33 | disposition home or self-care (01) ==
LOC: ER 12:45
DX: Z00.8 Encounter for other general examination (principal); I10 Essential (primary) hypertension; J44.9 Chronic obstructive pulmonary disease, unspecified; G40.909 Epilepsy, unspecified, not intractable, without status epilepticus; Z88.8 Allergy status to other drugs, medicaments and biological substances; Z79.899 Other long term (current) drug therapy
CPT/HCPCS: 99284

== ENCOUNTER 2021-05-12 22:01 | Emergency (ER) | payer OTHER ==
[~2021-05-12] VITALS: Ht 165.1 cm; Wt 45.4 kg
[2021-05-12] MEDS ORDERED: TOPI100 PO (22:17)
[2021-05-16] MEDS ORDERED: VERA120 PO (09:13)
== END 2021-05-12 22:40 | disposition home or self-care (01) ==
LOC: ER 22:01
DX: G40.909 Epilepsy, unspecified, not intractable, without status epilepticus (principal); G43.909 Migraine, unspecified, not intractable, without status migrainosus; Z76.0 Encounter for issue of repeat prescription; I10 Essential (primary) hypertension; J44.9 Chronic obstructive pulmonary disease, unspecified; Z88.8 Allergy status to other drugs, medicaments and biological substances; Z79.899 Other long term (current) drug therapy
CPT/HCPCS: 99283

== ENCOUNTER 2021-05-13 09:47 | Emergency (ER) | payer OTHER ==
[~2021-05-13] VITALS: Ht 165.1 cm; Wt 45.4 kg
[2021-05-16] MEDS ORDERED: VERA120 PO (09:13)
== END 2021-05-13 10:09 | disposition home or self-care (01) ==
LOC: ER 09:47
DX: G89.29 Other chronic pain (principal); M54.9 Dorsalgia, unspecified; G40.909 Epilepsy, unspecified, not intractable, without status epilepticus; J44.9 Chronic obstructive pulmonary disease, unspecified; G43.909 Migraine, unspecified, not intractable, without status migrainosus; I10 Essential (primary) hypertension; Z86.73 Personal history of transient ischemic attack (TIA), and cerebral infarction without residual deficits; Z88.8 Allergy status to other drugs, medicaments and biological substances; Z79.899 Other long term (current) drug therapy; W18.30XA Fall on same level, unspecified, initial encounter
CPT/HCPCS: 99283; A9270

== ENCOUNTER 2021-05-13 16:50 | Emergency (ER) | payer OTHER ==
[~2021-05-13] VITALS: Ht 160 cm; Wt 45.4 kg
[2021-05-16] MEDS ORDERED: VERA120 PO (09:13)
== END 2021-05-13 17:45 | disposition home or self-care (01) ==
LOC: ER 16:50
DX: Z00.8 Encounter for other general examination (principal); I10 Essential (primary) hypertension; G40.909 Epilepsy, unspecified, not intractable, without status epilepticus; G43.909 Migraine, unspecified, not intractable, without status migrainosus; J44.9 Chronic obstructive pulmonary disease, unspecified; Z88.8 Allergy status to other drugs, medicaments and biological substances; Z79.899 Other long term (current) drug therapy; Z86.73 Personal history of transient ischemic attack (TIA), and cerebral infarction without residual deficits
CPT/HCPCS: 99282

== ENCOUNTER 2021-05-21 06:20 | Emergency (ER) | payer OTHER ==
[~2021-05-21] VITALS: Ht 170.2 cm; Wt 54.4 kg
[~2021-05-21 06:20] MED LIST changes: +VERA120 PO
== END 2021-05-21 07:11 | disposition home or self-care (01) ==
LOC: ER 06:20
DX: R07.89 Other chest pain (principal); G89.29 Other chronic pain; I10 Essential (primary) hypertension; J44.9 Chronic obstructive pulmonary disease, unspecified; G40.909 Epilepsy, unspecified, not intractable, without status epilepticus; G43.909 Migraine, unspecified, not intractable, without status migrainosus; Z88.8 Allergy status to other drugs, medicaments and biological substances; Z79.899 Other long term (current) drug therapy; Z86.73 Personal history of transient ischemic attack (TIA), and cerebral infarction without residual deficits
CPT/HCPCS: 99282

== ENCOUNTER 2021-05-26 09:26 | Emergency (ER) | payer OTHER ==
[~2021-05-26] VITALS: Ht 170.2 cm; Wt 54.4 kg
== END 2021-05-26 10:08 | disposition home or self-care (01) ==
LOC: ER 09:26
DX: M25.512 Pain in left shoulder (principal); J44.9 Chronic obstructive pulmonary disease, unspecified; G43.909 Migraine, unspecified, not intractable, without status migrainosus; G40.909 Epilepsy, unspecified, not intractable, without status epilepticus; I10 Essential (primary) hypertension; Z86.73 Personal history of transient ischemic attack (TIA), and cerebral infarction without residual deficits; Z88.8 Allergy status to other drugs, medicaments and biological substances; Z79.899 Other long term (current) drug therapy; W18.30XA Fall on same level, unspecified, initial encounter
CPT/HCPCS: 99282

== ENCOUNTER 2021-06-07 18:20 | Emergency (ER) | payer OTHER ==
[~2021-06-07] VITALS: Ht 172.7 cm; Wt 56.7 kg
[2021-06-08] MEDS ORDERED: CEPH500 PO (11:55)
== END 2021-06-07 19:16 | disposition home or self-care (01) ==
LOC: ER 18:20
DX: S41.112A Laceration without foreign body of left upper arm, initial encounter (principal); S80.211A Abrasion, right knee, initial encounter; J44.9 Chronic obstructive pulmonary disease, unspecified; I10 Essential (primary) hypertension; Z79.899 Other long term (current) drug therapy; W19.XXXA Unspecified fall, initial encounter
CPT/HCPCS: 99283

== ENCOUNTER 2021-06-08 10:32 | Emergency (ER) | payer OTHER ==
[~2021-06-08] VITALS: Ht 170.2 cm; Wt 62.6 kg
[2021-06-08] MEDS ORDERED: CEPH500 PO (11:55)
== END 2021-06-08 12:13 | disposition home or self-care (01) ==
LOC: ER 10:32
DX: S41.111D Laceration without foreign body of right upper arm, subsequent encounter (principal); J44.9 Chronic obstructive pulmonary disease, unspecified; G40.909 Epilepsy, unspecified, not intractable, without status epilepticus; G43.909 Migraine, unspecified, not intractable, without status migrainosus; I10 Essential (primary) hypertension; Z86.73 Personal history of transient ischemic attack (TIA), and cerebral infarction without residual deficits; Z88.8 Allergy status to other drugs, medicaments and biological substances; Z79.899 Other long term (current) drug therapy
CPT/HCPCS: 99283

== ENCOUNTER 2021-06-10 08:40 | Emergency (ER) | payer OTHER ==
[~2021-06-10] VITALS: Ht 162.6 cm; Wt 63.5 kg
[~2021-06-10 08:40] MED LIST changes: +CEPH500 PO
== END 2021-06-10 09:04 | disposition home or self-care (01) ==
LOC: ER 08:40
DX: S41.112D Laceration without foreign body of left upper arm, subsequent encounter (principal); J44.9 Chronic obstructive pulmonary disease, unspecified; G43.909 Migraine, unspecified, not intractable, without status migrainosus; Z88.8 Allergy status to other drugs, medicaments and biological substances; Z79.899 Other long term (current) drug therapy
CPT/HCPCS: 99282

== ENCOUNTER 2021-06-15 13:45 | Emergency (ER) | payer OTHER ==
[~2021-06-15] VITALS: Ht 172.7 cm; Wt 49.9 kg
[2021-06-15] MEDS ORDERED: TOPI100 PO (15:29)
[2021-06-16] MEDS ORDERED: COMBIVENT RESPIM4 G1 INH (18:53)
== END 2021-06-15 15:40 | disposition home or self-care (01) ==
LOC: ER 13:45
DX: G40.909 Epilepsy, unspecified, not intractable, without status epilepticus (principal); S40.012A Contusion of left shoulder, initial encounter; S70.02XA Contusion of left hip, initial encounter; J44.9 Chronic obstructive pulmonary disease, unspecified; I10 Essential (primary) hypertension; W19.XXXA Unspecified fall, initial encounter
CPT/HCPCS: 73030; 73502; 99283-25; A9270

== ENCOUNTER 2021-06-16 11:42 | Emergency (ER) | payer OTHER ==
[~2021-06-16] VITALS: Ht 165.1 cm; Wt 54.4 kg
[2021-06-16] MEDS ORDERED: COMBIVENT RESPIM4 G1 INH (18:53)
== END 2021-06-16 12:57 | disposition home or self-care (01) ==
LOC: ER 11:42
DX: R07.89 Other chest pain (principal); J44.9 Chronic obstructive pulmonary disease, unspecified; I10 Essential (primary) hypertension; Z79.899 Other long term (current) drug therapy; W19.XXXA Unspecified fall, initial encounter
CPT/HCPCS: 71046; 99283-25

== ENCOUNTER 2021-06-18 09:51 | Emergency (ER) | payer OTHER ==
[~2021-06-18] VITALS: Ht 170.2 cm; Wt 54.4 kg
== END 2021-06-18 10:17 | disposition home or self-care (01) ==
LOC: ER 09:51
DX: S51.811D Laceration without foreign body of right forearm, subsequent encounter (principal); J44.9 Chronic obstructive pulmonary disease, unspecified; I10 Essential (primary) hypertension; Z79.899 Other long term (current) drug therapy; Z87.891 Personal history of nicotine dependence; W19.XXXD Unspecified fall, subsequent encounter
CPT/HCPCS: 99283

== ENCOUNTER 2021-06-20 09:45 | Emergency (ER) | payer OTHER ==
[~2021-06-20] VITALS: Ht 170.2 cm; Wt 45.4 kg
== END 2021-06-20 10:36 | disposition home or self-care (01) ==
LOC: ER 09:45
DX: R51.9 Headache, unspecified (principal); M25.512 Pain in left shoulder; W18.30XA Fall on same level, unspecified, initial encounter; Z88.8 Allergy status to other drugs, medicaments and biological substances; Z79.899 Other long term (current) drug therapy; J44.9 Chronic obstructive pulmonary disease, unspecified; Z86.73 Personal history of transient ischemic attack (TIA), and cerebral infarction without residual deficits; G40.909 Epilepsy, unspecified, not intractable, without status epilepticus; I10 Essential (primary) hypertension; Z87.891 Personal history of nicotine dependence
CPT/HCPCS: 99283

== ENCOUNTER 2021-06-22 11:07 | Emergency (ER) | payer OTHER ==
[~2021-06-22] VITALS: Ht 170.2 cm; Wt 67.1 kg
== END 2021-06-22 13:21 | disposition home or self-care (01) ==
LOC: ER 11:07
DX: G40.909 Epilepsy, unspecified, not intractable, without status epilepticus (principal); S51.811D Laceration without foreign body of right forearm, subsequent encounter; J44.9 Chronic obstructive pulmonary disease, unspecified; I10 Essential (primary) hypertension; Z86.73 Personal history of transient ischemic attack (TIA), and cerebral infarction without residual deficits; G43.909 Migraine, unspecified, not intractable, without status migrainosus; Z88.8 Allergy status to other drugs, medicaments and biological substances
CPT/HCPCS: 99283

== ENCOUNTER 2021-06-24 10:23 | Emergency (ER) | payer OTHER ==
[~2021-06-24] VITALS: Ht 170.2 cm; Wt 59.0 kg
== END 2021-06-24 12:07 | disposition home or self-care (01) ==
LOC: ER 10:23
DX: R10.9 Unspecified abdominal pain (principal); M79.603 Pain in arm, unspecified; M54.9 Dorsalgia, unspecified; R51.9 Headache, unspecified; W19.XXXA Unspecified fall, initial encounter; Z88.8 Allergy status to other drugs, medicaments and biological substances; Z79.899 Other long term (current) drug therapy; G43.909 Migraine, unspecified, not intractable, without status migrainosus; G40.909 Epilepsy, unspecified, not intractable, without status epilepticus; J44.9 Chronic obstructive pulmonary disease, unspecified; I10 Essential (primary) hypertension; Z87.891 Personal history of nicotine dependence
CPT/HCPCS: 99283

== ENCOUNTER 2021-08-31 14:53 | Emergency (ER) | payer OTHER ==
[~2021-08-31] VITALS: Ht 167.6 cm; Wt 54.4 kg
[2021-08-31] MEDS ORDERED: TOPI100 PO (16:12)
== END 2021-08-31 16:18 | disposition home or self-care (01) ==
LOC: ER 14:53
DX: M25.532 Pain in left wrist (principal); Z76.0 Encounter for issue of repeat prescription; G40.909 Epilepsy, unspecified, not intractable, without status epilepticus; J44.9 Chronic obstructive pulmonary disease, unspecified; I10 Essential (primary) hypertension; Z86.73 Personal history of transient ischemic attack (TIA), and cerebral infarction without residual deficits; Z88.8 Allergy status to other drugs, medicaments and biological substances; Z79.899 Other long term (current) drug therapy; Z87.891 Personal history of nicotine dependence
CPT/HCPCS: 99282; A9270

== ENCOUNTER 2021-09-11 12:12 | Emergency (ER) | payer OTHER ==
[~2021-09-11] VITALS: Ht 167.6 cm; Wt 54.4 kg
[2021-09-11] MEDS ORDERED: TOPI100 PO (13:06)
== END 2021-09-11 13:15 | disposition home or self-care (01) ==
LOC: ER 12:12
DX: G40.909 Epilepsy, unspecified, not intractable, without status epilepticus (principal); Z76.0 Encounter for issue of repeat prescription; M25.552 Pain in left hip; J44.9 Chronic obstructive pulmonary disease, unspecified; I10 Essential (primary) hypertension; Z79.899 Other long term (current) drug therapy
CPT/HCPCS: 94640; 99282-25; A9270

== ENCOUNTER 2021-09-14 07:01 | Emergency (ER) | payer OTHER ==
[~2021-09-14] VITALS: Ht 172.7 cm; Wt 43.1 kg
== END 2021-09-14 07:50 | disposition left against medical advice (07) ==
LOC: ER 07:01
DX: Z53.21 Procedure and treatment not carried out due to patient leaving prior to being seen by health care provider (principal)

== ENCOUNTER 2021-09-16 12:37 | Emergency (ER) | payer OTHER ==
[~2021-09-16] VITALS: Ht 162.6 cm; Wt 52.2 kg
== END 2021-09-16 14:21 | disposition home or self-care (01) ==
LOC: ER 12:37
DX: M25.552 Pain in left hip (principal); J45.909 Unspecified asthma, uncomplicated; G40.909 Epilepsy, unspecified, not intractable, without status epilepticus; I10 Essential (primary) hypertension; Z79.899 Other long term (current) drug therapy; Z87.891 Personal history of nicotine dependence; Z86.69 Personal history of other diseases of the nervous system and sense organs; Z86.73 Personal history of transient ischemic attack (TIA), and cerebral infarction without residual deficits; Z88.8 Allergy status to other drugs, medicaments and biological substances
CPT/HCPCS: 73502; 99283-25

== ENCOUNTER 2021-09-18 13:39 | Emergency (ER) | payer OTHER ==
[~2021-09-18] VITALS: Ht 170.2 cm; Wt 63.5 kg
== END 2021-09-18 15:49 | disposition home or self-care (01) ==
LOC: ER 13:39
DX: Z00.00 Encounter for general adult medical examination without abnormal findings (principal); J44.9 Chronic obstructive pulmonary disease, unspecified; G40.909 Epilepsy, unspecified, not intractable, without status epilepticus; I10 Essential (primary) hypertension; Z87.891 Personal history of nicotine dependence; Z79.899 Other long term (current) drug therapy; Z86.73 Personal history of transient ischemic attack (TIA), and cerebral infarction without residual deficits; Z86.69 Personal history of other diseases of the nervous system and sense organs; Z88.8 Allergy status to other drugs, medicaments and biological substances
CPT/HCPCS: 99282

== ENCOUNTER 2021-09-21 21:36 | Emergency (ER) | payer OTHER ==
[~2021-09-21] VITALS: Ht 172.7 cm; Wt 54.4 kg
[2021-09-21] MEDS ORDERED: VERA80 (21:55)
[2021-09-21] MEDS ORDERED: TROKENDI XR200 MG PO (22:55)
[2021-09-23] MEDS ORDERED: PRED20 PO (15:58)
[2021-09-23] MEDS ORDERED: ALBU90OI INH (15:58)
[2021-09-24] MEDS ORDERED: TOPI100 PO (15:42)
[2021-09-24] MEDS ORDERED: VERA120 PO (15:42)
== END 2021-09-21 23:20 | disposition home or self-care (01) ==
LOC: ER 21:36
DX: Z76.0 Encounter for issue of repeat prescription (principal); G40.909 Epilepsy, unspecified, not intractable, without status epilepticus; Z20.822 Contact with and (suspected) exposure to COVID-19; Z88.8 Allergy status to other drugs, medicaments and biological substances; J44.9 Chronic obstructive pulmonary disease, unspecified; I10 Essential (primary) hypertension; Z86.73 Personal history of transient ischemic attack (TIA), and cerebral infarction without residual deficits; Z87.891 Personal history of nicotine dependence
CPT/HCPCS: 99282; A9270

== ENCOUNTER 2021-09-22 17:20 | Emergency (ER) | payer OTHER ==
[~2021-09-22] VITALS: Ht 167.6 cm; Wt 56.7 kg
[~2021-09-22 17:20] MED LIST changes: +VERA80
[2021-09-23] MEDS ORDERED: PRED20 PO (15:58)
[2021-09-23] MEDS ORDERED: ALBU90OI INH (15:58)
[2021-09-24] MEDS ORDERED: VERA120 PO (15:42)
[2021-09-24] MEDS ORDERED: TOPI100 PO (15:42)
== END 2021-09-22 20:09 | disposition home or self-care (01) ==
LOC: ER 17:20
DX: Z00.00 Encounter for general adult medical examination without abnormal findings (principal); Z76.0 Encounter for issue of repeat prescription; K94.09 Other complications of colostomy; G40.909 Epilepsy, unspecified, not intractable, without status epilepticus; I10 Essential (primary) hypertension; Z86.73 Personal history of transient ischemic attack (TIA), and cerebral infarction without residual deficits; Z87.891 Personal history of nicotine dependence; Z90.49 Acquired absence of other specified parts of digestive tract; Z79.899 Other long term (current) drug therapy; Z88.8 Allergy status to other drugs, medicaments and biological substances
CPT/HCPCS: 99282

== ENCOUNTER 2021-09-25 12:20 | Emergency (ER) | payer OTHER ==
[~2021-09-25] VITALS: Ht 170.2 cm; Wt 44.5 kg
[~2021-09-25 12:20] MED LIST changes: +PRED20 PO
== END 2021-09-25 13:39 | disposition home or self-care (01) ==
LOC: ER 12:20
DX: Z76.0 Encounter for issue of repeat prescription (principal); G40.909 Epilepsy, unspecified, not intractable, without status epilepticus; J44.9 Chronic obstructive pulmonary disease, unspecified; I10 Essential (primary) hypertension; Z86.73 Personal history of transient ischemic attack (TIA), and cerebral infarction without residual deficits; Z88.8 Allergy status to other drugs, medicaments and biological substances; Z79.899 Other long term (current) drug therapy
CPT/HCPCS: 99282

== ENCOUNTER 2021-09-25 22:28 | Emergency (ER) | payer OTHER ==
[~2021-09-25] VITALS: Ht 170.2 cm; Wt 61.2 kg
== END 2021-09-25 22:50 | disposition home or self-care (01) ==
LOC: ER 22:28
DX: Z00.8 Encounter for other general examination (principal); Z88.8 Allergy status to other drugs, medicaments and biological substances; Z79.899 Other long term (current) drug therapy; Z79.52 Long term (current) use of systemic steroids; G43.909 Migraine, unspecified, not intractable, without status migrainosus; J44.9 Chronic obstructive pulmonary disease, unspecified; I10 Essential (primary) hypertension; Z86.73 Personal history of transient ischemic attack (TIA), and cerebral infarction without residual deficits
CPT/HCPCS: 99283

== ENCOUNTER 2021-09-26 13:59 | Emergency (ER) | payer OTHER ==
[~2021-09-26] VITALS: Ht 170.2 cm; Wt 54.4 kg
== END 2021-09-26 14:07 | disposition home or self-care (01) ==
LOC: ER 13:59
DX: Z76.0 Encounter for issue of repeat prescription (principal); G40.909 Epilepsy, unspecified, not intractable, without status epilepticus; J44.9 Chronic obstructive pulmonary disease, unspecified; I10 Essential (primary) hypertension; Z86.69 Personal history of other diseases of the nervous system and sense organs; Z88.1 Allergy status to other antibiotic agents; Z79.899 Other long term (current) drug therapy; Z86.73 Personal history of transient ischemic attack (TIA), and cerebral infarction without residual deficits; Z88.8 Allergy status to other drugs, medicaments and biological substances; Z79.52 Long term (current) use of systemic steroids
CPT/HCPCS: 99282

== ENCOUNTER 2021-09-26 22:35 | Emergency (ER) | payer OTHER ==
[~2021-09-26] VITALS: Ht 170.2 cm; Wt 63.5 kg
== END 2021-09-26 23:05 | disposition home or self-care (01) ==
LOC: ER 22:35
DX: Z43.3 Encounter for attention to colostomy (principal); G40.909 Epilepsy, unspecified, not intractable, without status epilepticus; J44.9 Chronic obstructive pulmonary disease, unspecified; I10 Essential (primary) hypertension; Z88.1 Allergy status to other antibiotic agents; Z86.69 Personal history of other diseases of the nervous system and sense organs; Z88.8 Allergy status to other drugs, medicaments and biological substances; Z79.82 Long term (current) use of aspirin; Z86.73 Personal history of transient ischemic attack (TIA), and cerebral infarction without residual deficits; Z79.899 Other long term (current) drug therapy
CPT/HCPCS: 99283

== ENCOUNTER 2021-09-27 13:50 | Emergency (ER) | payer OTHER ==
[~2021-09-27] VITALS: Ht 167.6 cm; Wt 61.2 kg
[2021-09-28] MEDS ORDERED: CEPH500 PO (08:32)
== END 2021-09-27 14:06 | disposition home or self-care (01) ==
LOC: ER 13:50
DX: Z00.00 Encounter for general adult medical examination without abnormal findings (principal); I10 Essential (primary) hypertension; J44.9 Chronic obstructive pulmonary disease, unspecified; Z87.891 Personal history of nicotine dependence; Z88.8 Allergy status to other drugs, medicaments and biological substances; Z79.899 Other long term (current) drug therapy; Z79.82 Long term (current) use of aspirin; Z86.73 Personal history of transient ischemic attack (TIA), and cerebral infarction without residual deficits; Z86.69 Personal history of other diseases of the nervous system and sense organs
CPT/HCPCS: 99282

== ENCOUNTER 2021-09-28 08:10 | Emergency (ER) | payer OTHER ==
[~2021-09-28] VITALS: Ht 167.6 cm; Wt 45.4 kg
[2021-09-28] MEDS ORDERED: CEPH500 PO (08:32)
[2021-09-29] MEDS ORDERED: TOPI100 PO (14:01)
== END 2021-09-28 08:43 | disposition home or self-care (01) ==
LOC: ER 08:10
DX: K94.03 Colostomy malfunction (principal); Z88.8 Allergy status to other drugs, medicaments and biological substances; Z79.899 Other long term (current) drug therapy; Z79.52 Long term (current) use of systemic steroids; G40.909 Epilepsy, unspecified, not intractable, without status epilepticus; J44.9 Chronic obstructive pulmonary disease, unspecified; I10 Essential (primary) hypertension; Z87.891 Personal history of nicotine dependence
CPT/HCPCS: 99282; A9270

== ENCOUNTER 2021-09-29 13:21 | Emergency (ER) | payer OTHER ==
[~2021-09-29] VITALS: Ht 170.2 cm; Wt 45.4 kg
[2021-09-29] MEDS ORDERED: TOPI100 PO (14:01)
== END 2021-09-29 14:01 | disposition home or self-care (01) ==
LOC: ER 13:21
DX: Z76.0 Encounter for issue of repeat prescription (principal); Z88.8 Allergy status to other drugs, medicaments and biological substances; Z79.899 Other long term (current) drug therapy; Z79.52 Long term (current) use of systemic steroids; G40.909 Epilepsy, unspecified, not intractable, without status epilepticus; J44.9 Chronic obstructive pulmonary disease, unspecified; I10 Essential (primary) hypertension; Z87.891 Personal history of nicotine dependence
CPT/HCPCS: 99282

== ENCOUNTER 2021-10-05 10:54 | Emergency (ER) | payer OTHER ==
[~2021-10-05] VITALS: Ht 170.2 cm; Wt 54.4 kg
== END 2021-10-05 13:17 | disposition home or self-care (01) ==
LOC: ER 10:54
DX: Z76.0 Encounter for issue of repeat prescription (principal); J44.9 Chronic obstructive pulmonary disease, unspecified; G43.909 Migraine, unspecified, not intractable, without status migrainosus; Z87.891 Personal history of nicotine dependence
CPT/HCPCS: 99281

== ENCOUNTER 2021-10-06 01:42 | Emergency (ER) | payer OTHER ==
[~2021-10-06] VITALS: Ht 165.1 cm; Wt 54.4 kg
== END 2021-10-06 02:06 | disposition home or self-care (01) ==
LOC: ER 01:42
DX: Z00.00 Encounter for general adult medical examination without abnormal findings (principal); I10 Essential (primary) hypertension; Z87.891 Personal history of nicotine dependence; Z86.73 Personal history of transient ischemic attack (TIA), and cerebral infarction without residual deficits; Z79.2 Long term (current) use of antibiotics; Z79.899 Other long term (current) drug therapy; Z88.8 Allergy status to other drugs, medicaments and biological substances
CPT/HCPCS: 99282

== ENCOUNTER 2021-10-09 20:43 | Emergency (ER) | payer OTHER ==
[~2021-10-09] VITALS: Ht 167.6 cm; Wt 45.4 kg
== END 2021-10-10 02:48 | disposition home or self-care (01) ==
LOC: ER 20:43
DX: Z00.00 Encounter for general adult medical examination without abnormal findings (principal); R56.9 Unspecified convulsions; Z79.899 Other long term (current) drug therapy; Z88.8 Allergy status to other drugs, medicaments and biological substances
CPT/HCPCS: 99281

== ENCOUNTER 2021-10-10 10:43 | Emergency (ER) | payer OTHER ==
[~2021-10-10] VITALS: Ht 160 cm; Wt 45.4 kg
== END 2021-10-10 11:24 | disposition home or self-care (01) ==
LOC: ER 10:43
DX: Z76.0 Encounter for issue of repeat prescription (principal); R51.9 Headache, unspecified; M25.559 Pain in unspecified hip; J44.9 Chronic obstructive pulmonary disease, unspecified; I10 Essential (primary) hypertension
CPT/HCPCS: 99283

== ENCOUNTER 2021-12-03 09:29 | Emergency (ER) | payer OTHER ==
[~2021-12-03] VITALS: Ht 172.7 cm; Wt 45.4 kg
[2021-12-03] MEDS ORDERED: ALBU90OI INH (10:12)
== END 2021-12-03 10:31 | disposition home or self-care (01) ==
LOC: ER 09:29
DX: Z76.0 Encounter for issue of repeat prescription (principal); Z88.8 Allergy status to other drugs, medicaments and biological substances; Z79.899 Other long term (current) drug therapy; G40.909 Epilepsy, unspecified, not intractable, without status epilepticus; J44.9 Chronic obstructive pulmonary disease, unspecified; I10 Essential (primary) hypertension; Z87.891 Personal history of nicotine dependence
CPT/HCPCS: 99281; A9270

== ENCOUNTER 2021-12-15 17:45 | Emergency (ER) | payer OTHER ==
[~2021-12-15] VITALS: Ht 172.7 cm; Wt 61.2 kg
[2021-12-15] MEDS ORDERED: TROKENDI XR200 MG PO (19:20)
[2021-12-15] MEDS ORDERED: CALAN120 MG PO (19:20)
== END 2021-12-15 19:21 | disposition home or self-care (01) ==
LOC: ER 17:45
DX: Z76.0 Encounter for issue of repeat prescription (principal); J44.9 Chronic obstructive pulmonary disease, unspecified; Z79.899 Other long term (current) drug therapy
CPT/HCPCS: 99281

== ENCOUNTER 2021-12-17 00:35 | Emergency (ER) | payer OTHER ==
[~2021-12-17] VITALS: Ht 157.5 cm; Wt 54.4 kg
[~2021-12-17 00:35] MED LIST changes: +CALAN120 MG PO
== END 2021-12-17 00:55 | disposition home or self-care (01) ==
LOC: ER 00:35
DX: Z43.2 Encounter for attention to ileostomy (principal); J44.9 Chronic obstructive pulmonary disease, unspecified; I10 Essential (primary) hypertension; R56.9 Unspecified convulsions; Z86.73 Personal history of transient ischemic attack (TIA), and cerebral infarction without residual deficits; Z90.49 Acquired absence of other specified parts of digestive tract; Z88.8 Allergy status to other drugs, medicaments and biological substances
CPT/HCPCS: 99283

== ENCOUNTER 2021-12-21 09:48 | Emergency (ER) | payer OTHER ==
[~2021-12-21] VITALS: Ht 170.2 cm; Wt 45.4 kg
[2021-12-22] MEDS ORDERED: ALBU90OI INH (12:36)
[2021-12-22] MEDS ORDERED: TROKENDI XR200 MG PO (12:36)
[2021-12-22] MEDS ORDERED: COMBIVENT RESPIM4 G1 INH (12:36)
[2021-12-22] MEDS ORDERED: CALAN120 MG PO (12:36)
== END 2021-12-21 10:09 | disposition home or self-care (01) ==
LOC: ER 09:48
DX: R51.9 Headache, unspecified (principal); R10.9 Unspecified abdominal pain; G89.29 Other chronic pain; G40.909 Epilepsy, unspecified, not intractable, without status epilepticus; J44.9 Chronic obstructive pulmonary disease, unspecified; I10 Essential (primary) hypertension; Z86.73 Personal history of transient ischemic attack (TIA), and cerebral infarction without residual deficits; Z79.899 Other long term (current) drug therapy; Z88.8 Allergy status to other drugs, medicaments and biological substances; Z87.891 Personal history of nicotine dependence
CPT/HCPCS: 99283

== ENCOUNTER 2021-12-21 14:50 | Emergency (ER) | payer OTHER ==
[~2021-12-21] VITALS: Ht 170.2 cm; Wt 54.4 kg
[2021-12-22] MEDS ORDERED: CALAN120 MG PO (12:36)
[2021-12-22] MEDS ORDERED: TROKENDI XR200 MG PO (12:36)
[2021-12-22] MEDS ORDERED: ALBU90OI INH (12:36)
[2021-12-22] MEDS ORDERED: COMBIVENT RESPIM4 G1 INH (12:36)
== END 2021-12-21 16:32 | disposition home or self-care (01) ==
LOC: ER 14:50
DX: R51.9 Headache, unspecified (principal); G40.909 Epilepsy, unspecified, not intractable, without status epilepticus; J44.9 Chronic obstructive pulmonary disease, unspecified; I10 Essential (primary) hypertension; Z86.73 Personal history of transient ischemic attack (TIA), and cerebral infarction without residual deficits; Z79.899 Other long term (current) drug therapy; Z88.8 Allergy status to other drugs, medicaments and biological substances; Z87.891 Personal history of nicotine dependence
CPT/HCPCS: 99282

== ENCOUNTER 2021-12-22 11:57 | Emergency (ER) | payer OTHER ==
[~2021-12-22] VITALS: Ht 170.2 cm; Wt 62.6 kg
[2021-12-22] MEDS ORDERED: COMBIVENT RESPIM4 G1 INH (12:36)
[2021-12-22] MEDS ORDERED: TROKENDI XR200 MG PO (12:36)
[2021-12-22] MEDS ORDERED: ALBU90OI INH (12:36)
[2021-12-22] MEDS ORDERED: CALAN120 MG PO (12:36)
[2021-12-23] MEDS ORDERED: TOPI100 PO (21:08)
[2021-12-23] MEDS ORDERED: ALBU90OI INH (21:08)
[2021-12-23] MEDS ORDERED: VERA120 PO (21:08)
[2021-12-26] MEDS ORDERED: TROKENDI XR200 MG PO ×2 (13:04→13:06)
[2021-12-26] MEDS ORDERED: ALBU90OI INH ×2 (13:04→13:06)
[2021-12-26] MEDS ORDERED: COMBIVENT RESPIM4 G1 INH ×2 (13:04→13:06)
[2021-12-26] MEDS ORDERED: CALAN120 MG PO ×2 (13:04→13:06)
== END 2021-12-22 12:51 | disposition home or self-care (01) ==
LOC: ER 11:57
DX: Z76.0 Encounter for issue of repeat prescription (principal); J44.9 Chronic obstructive pulmonary disease, unspecified; G40.909 Epilepsy, unspecified, not intractable, without status epilepticus; I10 Essential (primary) hypertension; Z86.73 Personal history of transient ischemic attack (TIA), and cerebral infarction without residual deficits; G43.909 Migraine, unspecified, not intractable, without status migrainosus; Z79.899 Other long term (current) drug therapy; Z88.8 Allergy status to other drugs, medicaments and biological substances; Z87.891 Personal history of nicotine dependence
CPT/HCPCS: 99283

== ENCOUNTER 2021-12-23 18:44 | Emergency (ER) | payer OTHER ==
[~2021-12-23] VITALS: Ht 165.1 cm; Wt 49.9 kg
[2021-12-23] MEDS ORDERED: ALBU90OI INH (21:08)
[2021-12-23] MEDS ORDERED: VERA120 PO (21:08)
[2021-12-23] MEDS ORDERED: TOPI100 PO (21:08)
[2021-12-26] MEDS ORDERED: COMBIVENT RESPIM4 G1 INH ×2 (13:04→13:06)
[2021-12-26] MEDS ORDERED: CALAN120 MG PO ×2 (13:04→13:06)
[2021-12-26] MEDS ORDERED: TROKENDI XR200 MG PO ×2 (13:04→13:06)
[2021-12-26] MEDS ORDERED: ALBU90OI INH ×2 (13:04→13:06)
== END 2021-12-23 21:15 | disposition home or self-care (01) ==
LOC: ER 18:44
DX: Z76.0 Encounter for issue of repeat prescription (principal); G40.909 Epilepsy, unspecified, not intractable, without status epilepticus; I10 Essential (primary) hypertension; J44.9 Chronic obstructive pulmonary disease, unspecified; Z88.8 Allergy status to other drugs, medicaments and biological substances; Z79.899 Other long term (current) drug therapy; Z87.891 Personal history of nicotine dependence; Z86.73 Personal history of transient ischemic attack (TIA), and cerebral infarction without residual deficits
CPT/HCPCS: 99283

== ENCOUNTER 2021-12-23 23:43 | Emergency (ER) | payer OTHER ==
[~2021-12-23] VITALS: Ht 170.2 cm; Wt 65.8 kg
[2021-12-26] MEDS ORDERED: CALAN120 MG PO ×2 (13:04→13:06)
[2021-12-26] MEDS ORDERED: TROKENDI XR200 MG PO ×2 (13:04→13:06)
[2021-12-26] MEDS ORDERED: ALBU90OI INH ×2 (13:04→13:06)
[2021-12-26] MEDS ORDERED: COMBIVENT RESPIM4 G1 INH ×2 (13:04→13:06)
== END 2021-12-24 00:46 | disposition home or self-care (01) ==
LOC: ER 23:43
DX: R10.9 Unspecified abdominal pain (principal); G40.909 Epilepsy, unspecified, not intractable, without status epilepticus; J44.9 Chronic obstructive pulmonary disease, unspecified; I10 Essential (primary) hypertension; Z93.3 Colostomy status; Z86.73 Personal history of transient ischemic attack (TIA), and cerebral infarction without residual deficits; Z87.891 Personal history of nicotine dependence; Z79.899 Other long term (current) drug therapy; Z88.8 Allergy status to other drugs, medicaments and biological substances
CPT/HCPCS: 99282

== ENCOUNTER 2021-12-25 19:41 | Emergency (ER) | payer OTHER ==
[~2021-12-25] VITALS: Ht 170.2 cm; Wt 49.9 kg
[2021-12-26] MEDS ORDERED: COMBIVENT RESPIM4 G1 INH ×4 (13:04→13:06)
[2021-12-26] MEDS ORDERED: TROKENDI XR200 MG PO ×4 (13:04→13:06)
[2021-12-26] MEDS ORDERED: ALBU90OI INH ×4 (13:04→13:06)
[2021-12-26] MEDS ORDERED: CALAN120 MG PO ×4 (13:04→13:06)
== END 2021-12-25 22:00 | disposition home or self-care (01) ==
LOC: ER 19:41
DX: K94.09 Other complications of colostomy (principal); J44.9 Chronic obstructive pulmonary disease, unspecified; Y84.8 Other medical procedures as the cause of abnormal reaction of the patient, or of later complication, without mention of misadventure at the time of the procedure; Z79.899 Other long term (current) drug therapy; Z87.891 Personal history of nicotine dependence; Z88.8 Allergy status to other drugs, medicaments and biological substances
CPT/HCPCS: 99282

== ENCOUNTER 2021-12-26 12:37 | Emergency (ER) | payer OTHER ==
[~2021-12-26] VITALS: Ht 170.2 cm; Wt 63.5 kg
[2021-12-26] MEDS ORDERED: ALBU90OI INH ×4 (13:04→13:06)
[2021-12-26] MEDS ORDERED: TROKENDI XR200 MG PO ×4 (13:04→13:06)
[2021-12-26] MEDS ORDERED: COMBIVENT RESPIM4 G1 INH ×4 (13:04→13:06)
[2021-12-26] MEDS ORDERED: CALAN120 MG PO ×4 (13:04→13:06)
== END 2021-12-26 14:12 | disposition home or self-care (01) ==
LOC: ER 12:37
DX: Z43.3 Encounter for attention to colostomy (principal); Z76.0 Encounter for issue of repeat prescription; Z79.899 Other long term (current) drug therapy
CPT/HCPCS: 99282

== ENCOUNTER 2021-12-28 14:23 | Emergency (ER) | payer OTHER ==
[~2021-12-28] VITALS: Ht 157.5 cm; Wt 43.1 kg
== END 2021-12-28 14:53 | disposition home or self-care (01) ==
LOC: ER 14:23
DX: R51.9 Headache, unspecified (principal); G40.909 Epilepsy, unspecified, not intractable, without status epilepticus; J44.9 Chronic obstructive pulmonary disease, unspecified; I10 Essential (primary) hypertension; Z86.73 Personal history of transient ischemic attack (TIA), and cerebral infarction without residual deficits; Z87.891 Personal history of nicotine dependence; Z88.8 Allergy status to other drugs, medicaments and biological substances; Z79.899 Other long term (current) drug therapy
CPT/HCPCS: 99282

== ENCOUNTER 2021-12-28 19:47 | Emergency (ER) | payer OTHER ==
[~2021-12-28] VITALS: Ht 165.1 cm; Wt 49.9 kg
== END 2021-12-28 20:09 | disposition home or self-care (01) ==
LOC: ER 19:47
DX: Z76.0 Encounter for issue of repeat prescription (principal); G40.909 Epilepsy, unspecified, not intractable, without status epilepticus; I10 Essential (primary) hypertension; J44.9 Chronic obstructive pulmonary disease, unspecified; Z88.8 Allergy status to other drugs, medicaments and biological substances; Z79.899 Other long term (current) drug therapy; Z87.891 Personal history of nicotine dependence
CPT/HCPCS: 99281

== ENCOUNTER 2021-12-30 14:36 | Emergency (ER) | payer OTHER ==
[~2021-12-30] VITALS: Ht 172.7 cm; Wt 56.7 kg
[2021-12-30] MEDS ORDERED: VERA120 PO (14:45)
[2021-12-30] MEDS ORDERED: ALBU90OI INH (14:45)
[2021-12-30] MEDS ORDERED: COMBIVENT RESPIM4 G1 INH (14:45)
[2021-12-30] MEDS ORDERED: TROKENDI XR200 MG PO (14:45)
[2021-12-31] MEDS ORDERED: TROKENDI XR200 MG PO (20:26)
[2021-12-31] MEDS ORDERED: COMBIVENT RESPIM4 G1 INH (20:26)
[2021-12-31] MEDS ORDERED: VERA120 PO (20:26)
[2021-12-31] MEDS ORDERED: ALBU90OI INH (20:26)
== END 2021-12-30 15:17 | disposition home or self-care (01) ==
LOC: ER 14:36
DX: Z76.0 Encounter for issue of repeat prescription (principal); G40.909 Epilepsy, unspecified, not intractable, without status epilepticus; J44.9 Chronic obstructive pulmonary disease, unspecified; I10 Essential (primary) hypertension; Z87.891 Personal history of nicotine dependence; Z88.8 Allergy status to other drugs, medicaments and biological substances; Z79.899 Other long term (current) drug therapy
CPT/HCPCS: 99282

== ENCOUNTER 2021-12-31 20:20 | Emergency (ER) | payer OTHER ==
[~2021-12-31] VITALS: Ht 172.7 cm; Wt 45.4 kg
[2021-12-31] MEDS ORDERED: TROKENDI XR200 MG PO (20:26)
[2021-12-31] MEDS ORDERED: ALBU90OI INH (20:26)
[2021-12-31] MEDS ORDERED: COMBIVENT RESPIM4 G1 INH (20:26)
[2021-12-31] MEDS ORDERED: VERA120 PO (20:26)
== END 2021-12-31 21:00 | disposition home or self-care (01) ==
LOC: ER 20:20
DX: Z76.0 Encounter for issue of repeat prescription (principal); I10 Essential (primary) hypertension; J44.9 Chronic obstructive pulmonary disease, unspecified; Z88.8 Allergy status to other drugs, medicaments and biological substances; Z87.891 Personal history of nicotine dependence
CPT/HCPCS: 99283

== ENCOUNTER 2022-01-01 18:22 | Emergency (ER) | payer OTHER ==
[~2022-01-01] VITALS: Ht 170.2 cm; Wt 45.4 kg
== END 2022-01-01 19:48 | disposition home or self-care (01) ==
LOC: ER 18:22
DX: Z43.3 Encounter for attention to colostomy (principal); J44.9 Chronic obstructive pulmonary disease, unspecified; Z88.8 Allergy status to other drugs, medicaments and biological substances; Z79.899 Other long term (current) drug therapy; Z87.891 Personal history of nicotine dependence
CPT/HCPCS: 99282

== ENCOUNTER 2022-01-02 14:13 | Emergency (ER) | payer OTHER ==
[~2022-01-02] VITALS: Ht 165.1 cm; Wt 54.4 kg
== END 2022-01-02 15:00 | disposition home or self-care (01) ==
LOC: ER 14:13
DX: Z76.0 Encounter for issue of repeat prescription (principal); G40.909 Epilepsy, unspecified, not intractable, without status epilepticus; J44.9 Chronic obstructive pulmonary disease, unspecified; I10 Essential (primary) hypertension; Z87.891 Personal history of nicotine dependence
CPT/HCPCS: 99281

== ENCOUNTER 2022-01-03 19:14 | Emergency (ER) | payer OTHER ==
[~2022-01-03] VITALS: Ht 170.2 cm; Wt 54.4 kg
== END 2022-01-03 19:38 | disposition home or self-care (01) ==
LOC: ER 19:14
DX: Z76.0 Encounter for issue of repeat prescription (principal); J44.9 Chronic obstructive pulmonary disease, unspecified; I10 Essential (primary) hypertension; Z79.899 Other long term (current) drug therapy; Z88.8 Allergy status to other drugs, medicaments and biological substances; Z87.891 Personal history of nicotine dependence
CPT/HCPCS: 99281

== ENCOUNTER 2022-01-04 18:01 | Emergency (ER) | payer OTHER ==
[~2022-01-04] VITALS: Ht 165.1 cm; Wt 40.8 kg
== END 2022-01-04 19:07 | disposition home or self-care (01) ==
LOC: ER 18:01
DX: Z76.0 Encounter for issue of repeat prescription (principal); R06.02 Shortness of breath; J44.9 Chronic obstructive pulmonary disease, unspecified; Z88.8 Allergy status to other drugs, medicaments and biological substances; Z79.899 Other long term (current) drug therapy; Z87.891 Personal history of nicotine dependence
CPT/HCPCS: 99281; A9270

== ENCOUNTER 2022-01-05 14:20 | Emergency (ER) | payer OTHER ==
[~2022-01-05] VITALS: Ht 170.2 cm; Wt 59.0 kg
== END 2022-01-05 18:01 | disposition home or self-care (01) ==
LOC: ER 14:20
DX: Z76.0 Encounter for issue of repeat prescription (principal); Z88.8 Allergy status to other drugs, medicaments and biological substances; Z79.899 Other long term (current) drug therapy; G40.909 Epilepsy, unspecified, not intractable, without status epilepticus; J44.9 Chronic obstructive pulmonary disease, unspecified; G43.909 Migraine, unspecified, not intractable, without status migrainosus; I10 Essential (primary) hypertension; Z87.891 Personal history of nicotine dependence
CPT/HCPCS: 99281

== ENCOUNTER 2022-01-07 17:24 | Emergency (ER) | payer OTHER ==
[~2022-01-07] VITALS: Ht 162.6 cm; Wt 56.7 kg
== END 2022-01-07 19:19 | disposition home or self-care (01) ==
LOC: ER 17:24
DX: Z76.0 Encounter for issue of repeat prescription (principal); J45.909 Unspecified asthma, uncomplicated; I10 Essential (primary) hypertension; J44.9 Chronic obstructive pulmonary disease, unspecified; G40.909 Epilepsy, unspecified, not intractable, without status epilepticus; Z88.1 Allergy status to other antibiotic agents; Z79.899 Other long term (current) drug therapy; Z87.891 Personal history of nicotine dependence
CPT/HCPCS: 99281

== ENCOUNTER 2022-01-08 16:25 | Emergency (ER) | payer OTHER ==
[~2022-01-08] VITALS: Ht 167.6 cm; Wt 54.4 kg
== END 2022-01-08 17:08 | disposition home or self-care (01) ==
LOC: ER 16:25
DX: Z76.0 Encounter for issue of repeat prescription (principal); J44.9 Chronic obstructive pulmonary disease, unspecified; Z88.8 Allergy status to other drugs, medicaments and biological substances; Z79.899 Other long term (current) drug therapy
CPT/HCPCS: 99281

== ENCOUNTER 2022-01-15 12:42 | Emergency (ER) | payer OTHER | END 2022-01-15 14:55 | disposition home or self-care (01) | LOC: ER 12:42 | DX: Z00.00 Encounter for general adult medical examination without abnormal findings (principal); Z79.899 Other long term (current) drug therapy; Z88.8 Allergy status to other drugs, medicaments and biological substances | CPT/HCPCS: 99281 ==

== ENCOUNTER 2022-01-16 09:11 | Emergency (ER) | payer OTHER ==
[~2022-01-16] VITALS: Ht 175.3 cm; Wt 49.9 kg
== END 2022-01-16 10:11 | disposition home or self-care (01) ==
LOC: ER 09:11
DX: Z76.0 Encounter for issue of repeat prescription (principal); G40.909 Epilepsy, unspecified, not intractable, without status epilepticus; J44.9 Chronic obstructive pulmonary disease, unspecified; I10 Essential (primary) hypertension; Z88.8 Allergy status to other drugs, medicaments and biological substances; Z79.899 Other long term (current) drug therapy; Z87.891 Personal history of nicotine dependence
CPT/HCPCS: 99281

== ENCOUNTER 2022-01-17 07:19 | Emergency (ER) | payer OTHER ==
[~2022-01-17] VITALS: Ht 170.2 cm; Wt 43.1 kg
== END 2022-01-17 08:05 | disposition home or self-care (01) ==
LOC: ER 07:19
DX: Z43.2 Encounter for attention to ileostomy (principal); J44.9 Chronic obstructive pulmonary disease, unspecified; I10 Essential (primary) hypertension; Z88.8 Allergy status to other drugs, medicaments and biological substances; Z79.899 Other long term (current) drug therapy
CPT/HCPCS: 99283

== ENCOUNTER 2022-01-19 18:13 | Emergency (ER) | payer OTHER ==
[~2022-01-19] VITALS: Ht 170.2 cm; Wt 59.0 kg
[2022-01-19] MEDS ORDERED: VERA120 PO (19:03)
[2022-01-19] MEDS ORDERED: TROKENDI XR200 MG PO (19:03)
== END 2022-01-19 19:07 | disposition home or self-care (01) ==
LOC: ER 18:13
DX: Z76.0 Encounter for issue of repeat prescription (principal); I10 Essential (primary) hypertension; R56.9 Unspecified convulsions; J44.9 Chronic obstructive pulmonary disease, unspecified; F17.200 Nicotine dependence, unspecified, uncomplicated; Z88.0 Allergy status to penicillin; Z79.899 Other long term (current) drug therapy
CPT/HCPCS: 99281

== ENCOUNTER 2022-01-22 15:51 | Emergency (ER) | payer OTHER ==
[~2022-01-22] VITALS: Ht 162.6 cm; Wt 49.9 kg
== END 2022-01-22 16:25 | disposition home or self-care (01) ==
LOC: ER 15:51
DX: Z76.0 Encounter for issue of repeat prescription (principal); J44.9 Chronic obstructive pulmonary disease, unspecified; F17.200 Nicotine dependence, unspecified, uncomplicated; Z79.899 Other long term (current) drug therapy; Z88.8 Allergy status to other drugs, medicaments and biological substances
CPT/HCPCS: 99281

== ENCOUNTER 2022-01-23 11:41 | Emergency (ER) | payer OTHER ==
[~2022-01-23] VITALS: Ht 170.2 cm; Wt 59.0 kg
== END 2022-01-23 12:28 | disposition home or self-care (01) ==
LOC: ER 11:41
DX: Z76.0 Encounter for issue of repeat prescription (principal); J44.9 Chronic obstructive pulmonary disease, unspecified; Z79.899 Other long term (current) drug therapy
CPT/HCPCS: 99281

== ENCOUNTER 2022-01-24 08:52 | Emergency (ER) | payer OTHER ==
[~2022-01-24] VITALS: Ht 172.7 cm; Wt 61.2 kg
== END 2022-01-24 09:02 | disposition home or self-care (01) ==
LOC: ER 08:52
DX: R56.9 Unspecified convulsions (principal); Z91.14 Patient's other noncompliance with medication regimen; Z88.8 Allergy status to other drugs, medicaments and biological substances
CPT/HCPCS: 99281

== ENCOUNTER 2022-01-24 13:37 | Emergency (ER) | payer OTHER ==
[~2022-01-24] VITALS: Ht 170.2 cm; Wt 54.4 kg
== END 2022-01-24 13:50 | disposition home or self-care (01) ==
LOC: ER 13:37
DX: G40.909 Epilepsy, unspecified, not intractable, without status epilepticus (principal); J45.909 Unspecified asthma, uncomplicated; J44.9 Chronic obstructive pulmonary disease, unspecified; I10 Essential (primary) hypertension; F17.200 Nicotine dependence, unspecified, uncomplicated; Z88.8 Allergy status to other drugs, medicaments and biological substances
CPT/HCPCS: 99281

== ENCOUNTER 2022-01-24 17:50 | Emergency (ER) | payer OTHER ==
[~2022-01-24] VITALS: Ht 170.2 cm; Wt 63.5 kg
== END 2022-01-24 18:19 | disposition home or self-care (01) ==
LOC: ER 17:50
DX: Z76.0 Encounter for issue of repeat prescription (principal); G40.909 Epilepsy, unspecified, not intractable, without status epilepticus; J44.9 Chronic obstructive pulmonary disease, unspecified; I10 Essential (primary) hypertension; F17.200 Nicotine dependence, unspecified, uncomplicated; Z88.8 Allergy status to other drugs, medicaments and biological substances; Z79.899 Other long term (current) drug therapy
CPT/HCPCS: 99281

== ENCOUNTER 2022-01-25 11:43 | Emergency (ER) | payer OTHER ==
[~2022-01-25] VITALS: Ht 167.6 cm; Wt 45.4 kg
[2022-01-26] MEDS ORDERED: TROKENDI XR200 MG PO (11:41)
== END 2022-01-25 12:45 | disposition home or self-care (01) ==
LOC: ER 11:43
DX: Z76.0 Encounter for issue of repeat prescription (principal); J44.9 Chronic obstructive pulmonary disease, unspecified; Z88.8 Allergy status to other drugs, medicaments and biological substances; Z79.899 Other long term (current) drug therapy; Z87.891 Personal history of nicotine dependence
CPT/HCPCS: 99281

== ENCOUNTER 2022-01-25 15:36 | Emergency (ER) | payer OTHER ==
[~2022-01-25] VITALS: Ht 170.2 cm; Wt 45.4 kg
[2022-01-26] MEDS ORDERED: TROKENDI XR200 MG PO (11:41)
[2022-01-27] MEDS ORDERED: VERA120 PO ×2 (21:44)
[2022-01-27] MEDS ORDERED: TOPI100 PO ×2 (21:44)
== END 2022-01-25 20:30 | disposition home or self-care (01) ==
LOC: ER 15:36
DX: J44.9 Chronic obstructive pulmonary disease, unspecified (principal); I10 Essential (primary) hypertension; Z86.73 Personal history of transient ischemic attack (TIA), and cerebral infarction without residual deficits; Z87.891 Personal history of nicotine dependence; Z79.899 Other long term (current) drug therapy; Z88.8 Allergy status to other drugs, medicaments and biological substances; Z76.0 Encounter for issue of repeat prescription
CPT/HCPCS: 99281

== ENCOUNTER 2022-01-26 11:01 | Emergency (ER) | payer OTHER ==
[~2022-01-26] VITALS: Ht 170.2 cm; Wt 45.4 kg
[2022-01-26] MEDS ORDERED: TROKENDI XR200 MG PO (11:41)
[2022-01-27] MEDS ORDERED: VERA120 PO (21:44)
[2022-01-27] MEDS ORDERED: TOPI100 PO (21:44)
== END 2022-01-26 11:42 | disposition home or self-care (01) ==
LOC: ER 11:01
DX: Z76.0 Encounter for issue of repeat prescription (principal); G40.909 Epilepsy, unspecified, not intractable, without status epilepticus; J44.9 Chronic obstructive pulmonary disease, unspecified; I10 Essential (primary) hypertension; Z86.73 Personal history of transient ischemic attack (TIA), and cerebral infarction without residual deficits; Z79.899 Other long term (current) drug therapy; Z88.8 Allergy status to other drugs, medicaments and biological substances; Z87.891 Personal history of nicotine dependence
CPT/HCPCS: 99281

== ENCOUNTER 2022-01-27 11:21 | Emergency (ER) | payer OTHER ==
[~2022-01-27] VITALS: Ht 170.2 cm; Wt 45.4 kg
[2022-01-27] MEDS ORDERED: TOPI100 PO (21:44)
[2022-01-27] MEDS ORDERED: VERA120 PO (21:44)
== END 2022-01-27 13:10 | disposition home or self-care (01) ==
LOC: ER 11:21
DX: Z76.0 Encounter for issue of repeat prescription (principal); J44.9 Chronic obstructive pulmonary disease, unspecified; I10 Essential (primary) hypertension; Z88.8 Allergy status to other drugs, medicaments and biological substances; Z79.899 Other long term (current) drug therapy; Z87.891 Personal history of nicotine dependence
CPT/HCPCS: 99281

== ENCOUNTER 2022-01-27 18:36 | Emergency (ER) | payer OTHER ==
[~2022-01-27] VITALS: Ht 170.2 cm; Wt 49.9 kg
[2022-01-27] MEDS ORDERED: TOPI100 PO (21:44)
[2022-01-27] MEDS ORDERED: VERA120 PO (21:44)
== END 2022-01-27 22:00 | disposition home or self-care (01) ==
LOC: ER 18:36
DX: Z76.0 Encounter for issue of repeat prescription (principal); G40.909 Epilepsy, unspecified, not intractable, without status epilepticus; J44.9 Chronic obstructive pulmonary disease, unspecified; I10 Essential (primary) hypertension; Z79.899 Other long term (current) drug therapy; Z88.8 Allergy status to other drugs, medicaments and biological substances; Z87.891 Personal history of nicotine dependence
CPT/HCPCS: A9270

== ENCOUNTER 2022-01-28 09:13 | Emergency (ER) | payer OTHER ==
[~2022-01-28] VITALS: Ht 170.2 cm; Wt 43.1 kg
[2022-01-29] MEDS ORDERED: VERA120 PO (21:26)
[2022-01-29] MEDS ORDERED: TOPI100 PO (21:26)
== END 2022-01-28 10:04 | disposition home or self-care (01) ==
LOC: ER 09:13
DX: Z76.0 Encounter for issue of repeat prescription (principal); J44.9 Chronic obstructive pulmonary disease, unspecified; I10 Essential (primary) hypertension; J45.909 Unspecified asthma, uncomplicated; Z87.891 Personal history of nicotine dependence; Z88.8 Allergy status to other drugs, medicaments and biological substances; Z79.899 Other long term (current) drug therapy
CPT/HCPCS: 99281

== ENCOUNTER 2022-01-29 20:14 | Emergency (ER) | payer OTHER ==
[~2022-01-29] VITALS: Ht 162.6 cm; Wt 44.9 kg
[2022-01-29] MEDS ORDERED: TOPI100 PO (21:26)
[2022-01-29] MEDS ORDERED: VERA120 PO (21:26)
[2022-01-30] MEDS ORDERED: TOPI100 PO (20:00)
[2022-01-30] MEDS ORDERED: VERA120ERB PO (20:00)
[2022-01-30] MEDS ORDERED: ALBU90OI INH (20:00)
== END 2022-01-29 22:08 | disposition home or self-care (01) ==
LOC: ER 20:14
DX: Z76.0 Encounter for issue of repeat prescription (principal); J44.9 Chronic obstructive pulmonary disease, unspecified; F17.200 Nicotine dependence, unspecified, uncomplicated; Z88.8 Allergy status to other drugs, medicaments and biological substances; Z79.899 Other long term (current) drug therapy
CPT/HCPCS: 99281

== ENCOUNTER 2022-01-30 10:14 | Emergency (ER) | payer OTHER ==
[~2022-01-30] VITALS: Ht 170.2 cm; Wt 61.2 kg
[2022-01-30] MEDS ORDERED: VERA120ERB PO (20:00)
[2022-01-30] MEDS ORDERED: ALBU90OI INH (20:00)
[2022-01-30] MEDS ORDERED: TOPI100 PO (20:00)
[2022-01-31] MEDS ORDERED: ALBU90OI INH (23:06)
[2022-01-31] MEDS ORDERED: TOPI100 PO (23:06)
[2022-01-31] MEDS ORDERED: VERA120ERB PO (23:06)
== END 2022-01-30 11:59 | disposition home or self-care (01) ==
LOC: ER 10:14
DX: Z76.0 Encounter for issue of repeat prescription (principal); I10 Essential (primary) hypertension; J44.9 Chronic obstructive pulmonary disease, unspecified; Z86.73 Personal history of transient ischemic attack (TIA), and cerebral infarction without residual deficits; Z87.891 Personal history of nicotine dependence; Z79.899 Other long term (current) drug therapy; Z88.8 Allergy status to other drugs, medicaments and biological substances
CPT/HCPCS: 99281

== ENCOUNTER 2022-01-30 18:00 | Emergency (ER) | payer OTHER ==
[~2022-01-30] VITALS: Ht 160 cm; Wt 59.0 kg
[2022-01-30] MEDS ORDERED: ALBU90OI INH (20:00)
[2022-01-30] MEDS ORDERED: TOPI100 PO (20:00)
[2022-01-30] MEDS ORDERED: VERA120ERB PO (20:00)
[2022-01-31] MEDS ORDERED: TOPI100 PO (23:06)
[2022-01-31] MEDS ORDERED: ALBU90OI INH (23:06)
[2022-01-31] MEDS ORDERED: VERA120ERB PO (23:06)
== END 2022-01-30 20:56 | disposition home or self-care (01) ==
LOC: ER 18:00
DX: Z76.0 Encounter for issue of repeat prescription (principal); J44.9 Chronic obstructive pulmonary disease, unspecified; F17.200 Nicotine dependence, unspecified, uncomplicated; Z88.8 Allergy status to other drugs, medicaments and biological substances; Z79.899 Other long term (current) drug therapy
CPT/HCPCS: 99281

== ENCOUNTER 2022-01-31 21:06 | Emergency (ER) | payer OTHER ==
[~2022-01-31] VITALS: Ht 170.2 cm; Wt 56.7 kg
[2022-01-31] MEDS ORDERED: VERA120ERB PO (23:06)
[2022-01-31] MEDS ORDERED: TOPI100 PO (23:06)
[2022-01-31] MEDS ORDERED: ALBU90OI INH (23:06)
== END 2022-01-31 23:25 | disposition home or self-care (01) ==
LOC: ER 21:06
DX: Z76.0 Encounter for issue of repeat prescription (principal); J44.9 Chronic obstructive pulmonary disease, unspecified; I10 Essential (primary) hypertension; Z88.8 Allergy status to other drugs, medicaments and biological substances; Z79.899 Other long term (current) drug therapy; Z86.73 Personal history of transient ischemic attack (TIA), and cerebral infarction without residual deficits
CPT/HCPCS: 99282

== ENCOUNTER 2022-02-01 08:50 | Emergency (ER) | payer OTHER ==
[~2022-02-01] VITALS: Ht 170.2 cm; Wt 49.9 kg
== END 2022-02-01 09:50 | disposition home or self-care (01) ==
LOC: ER 08:50
DX: R56.9 Unspecified convulsions (principal); J44.9 Chronic obstructive pulmonary disease, unspecified; F17.200 Nicotine dependence, unspecified, uncomplicated; Z88.8 Allergy status to other drugs, medicaments and biological substances; Z79.899 Other long term (current) drug therapy
CPT/HCPCS: 99282

== ENCOUNTER 2022-02-01 16:12 | Emergency (ER) | payer OTHER ==
[~2022-02-01] VITALS: Ht 165.1 cm; Wt 49.9 kg
== END 2022-02-01 16:59 | disposition home or self-care (01) ==
LOC: ER 16:12
DX: Z76.0 Encounter for issue of repeat prescription (principal); J44.9 Chronic obstructive pulmonary disease, unspecified; Z88.8 Allergy status to other drugs, medicaments and biological substances; Z79.899 Other long term (current) drug therapy
CPT/HCPCS: 99281

== ENCOUNTER 2022-02-03 15:03 | Emergency (ER) | payer OTHER ==
[~2022-02-03] VITALS: Ht 165.1 cm; Wt 49.9 kg
== END 2022-02-03 18:02 | disposition home or self-care (01) ==
LOC: ER 15:03
DX: Z76.0 Encounter for issue of repeat prescription (principal); G40.909 Epilepsy, unspecified, not intractable, without status epilepticus; J44.9 Chronic obstructive pulmonary disease, unspecified; I10 Essential (primary) hypertension; Z86.73 Personal history of transient ischemic attack (TIA), and cerebral infarction without residual deficits; Z79.899 Other long term (current) drug therapy
CPT/HCPCS: 99281

== ENCOUNTER 2022-02-04 07:41 | Emergency (ER) | payer OTHER ==
[~2022-02-04] VITALS: Ht 170.2 cm; Wt 45.4 kg
== END 2022-02-04 11:25 | disposition home or self-care (01) ==
LOC: ER 07:41
DX: Z76.0 Encounter for issue of repeat prescription (principal); J44.9 Chronic obstructive pulmonary disease, unspecified; G40.909 Epilepsy, unspecified, not intractable, without status epilepticus; Z79.899 Other long term (current) drug therapy; Z88.8 Allergy status to other drugs, medicaments and biological substances
CPT/HCPCS: 99281

== ENCOUNTER 2022-02-05 15:26 | Emergency (ER) | payer OTHER ==
[~2022-02-05] VITALS: Ht 172.7 cm; Wt 45.4 kg
== END 2022-02-05 17:17 | disposition home or self-care (01) ==
LOC: ER 15:26
DX: Z76.0 Encounter for issue of repeat prescription (principal); J44.9 Chronic obstructive pulmonary disease, unspecified; G40.909 Epilepsy, unspecified, not intractable, without status epilepticus; Z79.899 Other long term (current) drug therapy; Z88.8 Allergy status to other drugs, medicaments and biological substances
CPT/HCPCS: 99281

== ENCOUNTER 2022-02-06 10:38 | Emergency (ER) | payer OTHER ==
[~2022-02-06] VITALS: Ht 172.7 cm; Wt 56.7 kg
== END 2022-02-06 11:19 | disposition left against medical advice (07) ==
LOC: ER 10:38
DX: Z76.0 Encounter for issue of repeat prescription (principal); G40.909 Epilepsy, unspecified, not intractable, without status epilepticus; J44.9 Chronic obstructive pulmonary disease, unspecified; I10 Essential (primary) hypertension; Z79.899 Other long term (current) drug therapy; Z88.8 Allergy status to other drugs, medicaments and biological substances
CPT/HCPCS: 99281

== ENCOUNTER 2022-02-06 15:43 | Emergency (ER) | payer OTHER ==
[~2022-02-06] VITALS: Ht 172.7 cm; Wt 74.8 kg
== END 2022-02-06 17:04 | disposition home or self-care (01) ==
LOC: ER 15:43
DX: Z76.0 Encounter for issue of repeat prescription (principal); I10 Essential (primary) hypertension; J44.9 Chronic obstructive pulmonary disease, unspecified; Z88.8 Allergy status to other drugs, medicaments and biological substances; Z86.73 Personal history of transient ischemic attack (TIA), and cerebral infarction without residual deficits
CPT/HCPCS: 99281

== ENCOUNTER 2022-02-07 13:42 | Observation (INO) | payer OTHER ==
[~2022-02-07] VITALS: Ht 167.6 cm; Wt 49.9 kg
[2022-02-07 17:00] LABS: BASOPHILS ABSOLUTE AUTO 0.02 K/mm3 (0.00-0.23); BASOPHILS PERCENT AUTO 0 % (0-2); EOSINOPHILS ABSOLUTE AUTO 0.11 K/mm3 (0.00-0.68); EOSINOPHILS PERCENT AUTO 2 % (0-6); Hematocrit 28.7 % (33.0-51.0); Hemoglobin 8.1 g/dL (11.5-16.0); IMMATURE GRAN ABSOLUTE AUTO 0.01 K/mm3 (0.00-0.10); IMMATURE GRAN PERCENT AUTO 0 % (0-1); LYMPHOCYTES ABSOLUTE AUTO 1.28 K/mm3 (0.84-5.20); LYMPHOCYTES PERCENT AUTO 19 % (21-46); MONOCYTES ABSOLUTE AUTO 0.84 K/mm3 (0.16-1.47); MONOCYTES PERCENT AUTO 12 % (4-13); Mean Corpuscular HGB 20.7 pg (26.0-34.0); Mean Corpuscular HGB Conc 28.2 g/dL (31.5-36.5); Mean Corpuscular Volume 73 fL (80-100); Mean Platelet Volume 9.1 fL (9.1-12.4); NEUTROPHILS PERCENT AUTO 67 % (41-73); Platelet Count 433 K/mm3 (150-400); RDW Coefficient Variation 18.3 % (11.7-14.2); RDW Standard Deviation 48.8 fL (35.1-46.3); Red Blood Cell Count 3.92 M/mm3 (3.80-5.20); White Blood Cell Count 6.76 K/mm3 (4.00-11.30)
[2022-02-07 17:20] LABS: Ethanol (Alcohol), Blood, Med <3 mg/dL; Salicylate 3.6 mg/dL (2.8-20.0)
[2022-02-07 17:28] LABS: Alanine Aminotransfer (ALT/SGP 20 U/L (12-78); Albumin, Blood 3.3 g/dL (3.4-5.0); Alk Phos 101 U/L (50-136); Anion Gap 7 mmol/L (6-16); Aspartate Aminotrans (AST/SGOT 9 U/L (12-37); Bilirubin, Total 0.1 mg/dL (0.1-1.0); Blood Urea Nitrogen 12 mg/dL (8-24); CO2, Blood 24 mmol/L (21-32); Calcium, Blood 8.6 mg/dL (8.5-10.1); Chloride, Blood 111 mmol/L (98-108); Creatinine, Blood 0.67 mg/dL (0.40-1.00); Globulin, Blood 3.4 g/dL (2.2-4.0); Glomerular Filtration Rate 97 (60-); Glucose, Blood 92 mg/dL (70-99); Potassium, Blood 3.8 mmol/L (3.5-5.5); Sodium, Blood 142 mmol/L (136-145); Total Protein, Blood 6.7 g/dL (6.4-8.2)
[2022-02-07 17:29] LABS: Acetaminophen, Random <2.0 ug/mL (10.0-30.0)
== END 2022-02-08 11:29 | disposition home or self-care (01) ==
LOC: ER 13:42 → EOR 13:43
PROVIDERS: Physician Assistant; ADMIT Student in an Organized Health Care Education/Training Program
DX: F03.90 Unspecified dementia, unspecified severity, without behavioral disturbance, psychotic disturbance, mood disturbance, and anxiety (principal); G40.909 Epilepsy, unspecified, not intractable, without status epilepticus; J44.9 Chronic obstructive pulmonary disease, unspecified; I10 Essential (primary) hypertension; J45.901 Unspecified asthma with (acute) exacerbation; Z93.3 Colostomy status; Z88.8 Allergy status to other drugs, medicaments and biological substances; Z86.73 Personal history of transient ischemic attack (TIA), and cerebral infarction without residual deficits
CPT/HCPCS: 36415; 80053; 85025; 86592; 94640; 94664; 99285-25; A9270; G0378; G0480; J7512; Q3014

== ENCOUNTER 2022-02-09 10:18 | Emergency (ER) | payer OTHER ==
[~2022-02-09] VITALS: Ht 172.7 cm; Wt 52.2 kg
== END 2022-02-09 11:04 | disposition home or self-care (01) ==
LOC: ER 10:18
DX: Z76.0 Encounter for issue of repeat prescription (principal); I10 Essential (primary) hypertension; G40.909 Epilepsy, unspecified, not intractable, without status epilepticus; J44.9 Chronic obstructive pulmonary disease, unspecified; Z79.899 Other long term (current) drug therapy; Z88.8 Allergy status to other drugs, medicaments and biological substances
CPT/HCPCS: 99281

== ENCOUNTER 2022-02-12 03:28 | Emergency (ER) | payer OTHER ==
[~2022-02-12] VITALS: Ht 170.2 cm; Wt 61.2 kg
[2022-02-12 06:05] LABS: Hematocrit 29.1 % (33.0-51.0); Hemoglobin 8.2 g/dL (11.5-16.0); Mean Corpuscular HGB 20.8 pg (26.0-34.0); Mean Corpuscular HGB Conc 28.2 g/dL (31.5-36.5); Mean Corpuscular Volume 74 fL (80-100); Mean Platelet Volume 9.4 fL (9.1-12.4); Platelet Count 294 K/mm3 (150-400); RDW Coefficient Variation 18.2 % (11.7-14.2); RDW Standard Deviation 48.4 fL (35.1-46.3); Red Blood Cell Count 3.95 M/mm3 (3.80-5.20); White Blood Cell Count 7.76 K/mm3 (4.00-11.30)
[2022-02-12 06:22] LABS: Albumin, Blood 2.8 g/dL (3.4-5.0); Albumin/Globulin Ratio 0.7 (0.8-1.8); Bilirubin, Total 0.3 mg/dL (0.1-1.0); Calcium, Blood 8.8 mg/dL (8.5-10.1); Creatinine, Blood 0.53 mg/dL (0.40-1.00); Globulin, Blood 4.2 g/dL (2.2-4.0); Potassium, Blood 3.4 mmol/L (3.5-5.5)
[2022-02-12 06:26] LABS: BAND PERCENT MAN 35 % (0-8); BASOPHILS ABSOLUTE MAN 0.15 K/mm3 (0.00-0.23); BASOPHILS PERCENT MAN 2 % (0-2); EOSINOPHILS PERCENT MAN 0 % (0-6); LYMPHOCYTES ABSOLUTE MAN 0.23 K/mm3 (0.84-5.20); LYMPHOCYTES PERCENT MAN 3 % (21-46); MONOCYTES ABSOLUTE MAN 0.85 K/mm3 (0.16-1.47); MONOCYTES PERCENT MAN 11 % (4-13); NEUTROPHILS ABSOLUTE MAN 6.51 K/mm3 (1.96-9.15); SEG NEUTROPHILS PERCENT MAN 49 % (41-73); TOTAL CELLS COUNTED 100
[2022-02-12 07:05] LABS: Influenza A, PCR NEGATIVE (NEGATIVE); Influenza B, PCR NEGATIVE (NEGATIVE); Resp Syncytial Virus, PCR NEGATIVE (NEGATIVE); SARS-Cov-2 (COVID-19) PCR, MMC NEGATIVE (NEGATIVE)
[2022-02-12] MEDS ORDERED: VERA120ERB PO (08:56)
[2022-02-12] MEDS ORDERED: TROKENDI XR200 MG PO (08:57)
--- NOTE | 2022-02-12 23:04 | NUR ---
REVIEWED PT'S INFORMATION FOR CURRENT ADMISSION
[2022-02-12] MEDS ORDERED: COMBIVENT RESPIM4 G1 INH (23:34)
== END 2022-02-12 12:35 | disposition left against medical advice (07) ==
LOC: ER 03:28
PROVIDERS: Emergency Medicine
DX: J44.1 Chronic obstructive pulmonary disease with (acute) exacerbation (principal); R09.02 Hypoxemia; Z20.822 Contact with and (suspected) exposure to COVID-19; F17.200 Nicotine dependence, unspecified, uncomplicated
CPT/HCPCS: 0241U; 36415; 71045; 80053; 83880; 84484; 85025; 87430; 93005; 93010; 94640; 94664; A9270; J2930

== ENCOUNTER 2022-02-12 13:31 | Inpatient (IN) | payer OTHER ==
[~2022-02-12] VITALS: Ht 165.1 cm; Wt 45.4 kg
[2022-02-12 20:49] LABS: Hematocrit 35.4 % (33.0-51.0); Hemoglobin 9.8 g/dL (11.5-16.0); Mean Corpuscular HGB 20.5 pg (26.0-34.0); Mean Corpuscular HGB Conc 27.7 g/dL (31.5-36.5); Mean Corpuscular Volume 74 fL (80-100); Mean Platelet Volume 9.5 fL (9.1-12.4); Platelet Count 327 K/mm3 (150-400); RDW Coefficient Variation 18.6 % (11.7-14.2); RDW Standard Deviation 49.4 fL (35.1-46.3); Red Blood Cell Count 4.78 M/mm3 (3.80-5.20); White Blood Cell Count 6.07 K/mm3 (4.00-11.30)
[2022-02-12 21:10] LABS: BAND PERCENT MAN 2 % (0-8); BASOPHILS PERCENT MAN 0 % (0-2); EOSINOPHILS PERCENT MAN 0 % (0-6); LYMPHOCYTES ABSOLUTE MAN 0.36 K/mm3 (0.84-5.20); LYMPHOCYTES PERCENT MAN 6 % (21-46); MONOCYTES PERCENT MAN 10 % (4-13); NEUTROPHILS ABSOLUTE MAN 5.09 K/mm3 (1.96-9.15); SEG NEUTROPHILS PERCENT MAN 82 % (41-73); TOTAL CELLS COUNTED 100
[2022-02-12 21:12] LABS: Albumin, Blood 3.1 g/dL (3.4-5.0); Albumin/Globulin Ratio 0.6 (0.8-1.8); Bilirubin, Total 0.3 mg/dL (0.1-1.0); Bun/Creatinine Ratio 46.3 (12.0-20.0); Calcium, Blood 9.6 mg/dL (8.5-10.1); Creatinine, Blood 0.52 mg/dL (0.40-1.00); Globulin, Blood 5.1 g/dL (2.2-4.0); Potassium, Blood 3.6 mmol/L (3.5-5.5); Total Protein, Blood 8.2 g/dL (6.4-8.2)
[2022-02-12] MEDS ORDERED: COMBIVENT RESPIM4 G1 INH (23:34)
--- NOTE | 2022-02-12 23:50 | NUR ---
ADMISSION: PT ARRIVED TO THE FLOOR AND WAS ABLE TO TRANSFER SELF TO BED. SHE WAS ON 6L OF O2, NOT SURE WHAT HER BASELINE IS. PT IS A/OX2-3 & FORGETFUL. SHE HAS NOT BEEN COMPLIANT LEAVING O2 ON. SHE HAS AN ESTABLISHED COLOSTOMY IN THE RUQ AND IS WEARING A WRIST BRACE ON THE LEFT ARM D/T PREVIOUS FX. SHE DID ARRIVE TO THE HOSPITAL VIA PRIVATE VEHICLE AND LEFT THE ED AMA, BUT RETURNED A FEW HOURS LATER. HER BIGGEST CONCERN IS FOR US TO GIVE HER AN INHALER, BUT THE RN HAS EDUCATED HER ON THE NEED OF THE SUPPLEMENTAL O2, OTHER CARE AND THE IMPORTANCE OF THIS STAY AT THE HOSPITAL TO GET BETTER. SHE IS RESISTANT TO CARE, BUT IS COOPERATIVE AT TIMES. WE WILL CONTINUE TO MONITOR AND EDUCATE THORUGHOUT THIS SHIFT.
[2022-02-13 05:40] LABS: BASOPHILS PERCENT AUTO 0 % (0-2); Hematocrit 29.1 % (33.0-51.0); Hemoglobin 7.9 g/dL (11.5-16.0); LYMPHOCYTES ABSOLUTE AUTO 0.34 K/mm3 (0.84-5.20); LYMPHOCYTES PERCENT AUTO 6 % (21-46); MONOCYTES ABSOLUTE AUTO 0.69 K/mm3 (0.16-1.47); MONOCYTES PERCENT AUTO 11 % (4-13); Mean Corpuscular HGB 20.5 pg (26.0-34.0); Mean Corpuscular HGB Conc 27.1 g/dL (31.5-36.5); Mean Corpuscular Volume 75 fL (80-100); Mean Platelet Volume 9.9 fL (9.1-12.4); Platelet Count 317 K/mm3 (150-400); RDW Coefficient Variation 18.5 % (11.7-14.2); RDW Standard Deviation 50.1 fL (35.1-46.3); Red Blood Cell Count 3.86 M/mm3 (3.80-5.20); White Blood Cell Count 6.04 K/mm3 (4.00-11.30)
[2022-02-13 05:41] LABS: EOSINOPHILS PERCENT AUTO 0 % (0-6); IMMATURE GRAN ABSOLUTE AUTO 0.02 K/mm3 (0.00-0.10); IMMATURE GRAN PERCENT AUTO 0 % (0-1); NEUTROPHILS ABSOLUTE AUTO 4.99 K/mm3 (1.96-9.15); NEUTROPHILS PERCENT AUTO 83 % (41-73)
[2022-02-13 06:08] LABS: Albumin, Blood 2.6 g/dL (3.4-5.0); Albumin/Globulin Ratio 0.6 (0.8-1.8); Bilirubin, Total 0.4 mg/dL (0.1-1.0); Bun/Creatinine Ratio 42.6 (12.0-20.0); Calcium, Blood 9.1 mg/dL (8.5-10.1); Creatinine, Blood 0.54 mg/dL (0.40-1.00); Globulin, Blood 4.2 g/dL (2.2-4.0); Potassium, Blood 3.4 mmol/L (3.5-5.5); Total Protein, Blood 6.8 g/dL (6.4-8.2)
--- NOTE | 2022-02-13 06:15 | NUR ---
SHIFT SUMMARY: PT REMAINS DEMANDING AND DIFFICULT TO MANAGE WHILE IN CARE. SHE IS ON 5L OF O2 TO STAY ABOVE >92%, BUT CONTINUALLY TAKES OFF THE NC. SHE DID HAVE AN EPISODE OF EPITAXIS AND A BUBBLER WAS ADDED TO THE O2. PER TELE MONITOR SHE IS SR/80s. SHE IS ABLE TO MANANGE HER OSTOMY BAG. THE PT DID HAVE C/O HEADACHE AND WAS GIVEN PRN TYLENOL. THE BED IS IN THE LOWEST POSITION, AND WE'LL CONTINUE TO DO FREQUENT MONITORING.
--- NOTE | 2022-02-13 07:00 | NUR ---
ASSUMED CARE OF PT- BEDSIDE REPORT COMPLETED WITH NIGHT RN. PT STATED AT THE TIME OF REPORT SHE NEEDED TO GO HOME TO FEED HER PARROTS. PT LEFT AMA FROM HER PREVIOUS ADMIT. PER REPORT FROM NIGHT RN PT WAS ANGRY AND YELLING AT STAFF, BUT RESPONDED WELL WITH CLEAR BOUNDARIES OF WHAT BEHAVIOR IS ALLOWED AND WHAT IS NOT. PT REFUSED TO CHANGE OUT OF HER STREET CLOTHES INTO A HOSPITAL GOWN. SHE HAD A NOSE BLEED LAST NIGHT THAT LEFT PATCHES OF BLOOD STAINS ON HER SWEATSHIRT. PT IN BED, CALL LIGHT IN REACH, PER REPORT SHE DOES NOT CALL APPROPRIATELY.
--- NOTE | 2022-02-13 09:00 | NUR ---
PT SLEEPING SOUNDLY AT THE TIME OF CARE ROUNDING WILL WAKE HER FOR MORNING MEDS.
--- NOTE | 2022-02-13 10:00 | NUR ---
PT MEDICATED WITH MORNING MEDS, STILL A LITTLE CRANKY WITH STAFF BUT WILLING TO TAKE THE MEDICATIONS. PT COVERED IN FECES FROM HER COLOSTOMY BAG, BUT VIOLENLTY REFUSES TO ALLOW STAFF TO CHAGE HER CLOTHES, LITIGATION MANAGER ASLO ATTEMPTED WHEN THE PT HAD A BLADDER ACCIDENT SHE AGAIN ANGRILY REFUSED TO ALLOW STAFF TO CHANGE HER CLOTHES.
--- NOTE | 2022-02-13 10:30 | NUR ---
PT OUT IN THE ROD YELLING AT STAFF, SAYS SHE IS LEAVING AND IS UNWILLING TO RETURN TO HER ROOM. RESP RATE ELEVATED, OBVIOUS DYSPNEA WITH THE EXERTION, WHEN STAFF ASK IF SHE IS SHORT OF BREATH SHE GETS ANGRY AND SAYS "NO!" THEN SHE WILL TELL STAFF "I CAN'T BREATHE", PT WAS ASSISTED TO A WC AND RETURNED TO HER ROOM BY ADDITIONAL STAFF MEMBERS. CALLED RT TO REQUEST A BREATHING Tx, O2 SATS GREATER THAN 90% ON 3L O2 VIA NC, PT ON ROOM AIR AT BASELINE. RT AWARE OF THE PT, STATED THE PT HAD DECLINED THE TREATMENT OFFERED WHEN THEY ATTEMPTED EARLIER. VAMP PRESSER NOTIFIED DR HARRY NOTIFIED THEY ARE AWARE THE PT WANTS TO LEAVE AMA BUT IS PHYISCALLY UNABLE, DT BECOMING SOB WITH EXERTION.
--- NOTE | 2022-02-13 11:30 | NUR ---
PT ATTEMPTED TO LEAVE AMA- PT WAS YELLING AND CURSING AT STAFF, STILL REFUSING ALL ASSISTANCE, WHEN THIS RN ATTEMPTED TO ASSIST THE PT WITH HER O2 SHE SLAPPED IT OUT OF HER HANDS. PT THEN WALKED OFF MEDICAL UNIT ON HER OWN. WHEEZING AND BREATHING HARD PRIOR TO THE ELEVATOR. DR HARRY AND CAMPUS ADMINISTRATOR VICKIE WENT AFTER HER TO FURTHER ATTEMPT TO GET HER TO STAY. PT REFUSED TO ALLOW STAFF TO CALL HER DAUGHTER, PT REFUSED TO WAIT FOR A HOME O2 EVAL SO O2 COULD BE PROVIDED FOR HER TO LEAVE WITH. PT BECAME TOO WEAK BEFORE LEAVING THE HOSPITAL AND WAS ASSITED TO A WC BY PALLIATIVE CARE RN STEFFANY WHO RETURNED HER TO HER ROOM. AGAIN CALLED FOR BREATHING Tx ORDERED XANAX FOR THE PT TO HELP CALM HER AND RELAX HER BREATHING. PT WAS WILLING TO TAKE THE MEDICATIONS AGAIN. SBP 105 PRIOR TO MEDICATING IS AWARE. PT C/O CHEST PAIN, TELE DC'D PT WAS REFUSING TO HAVE IT. [facility] CONSULT IS IN. STOREKEEPER HELPER NOTIFIED OF THE ISSUE SHE CALLED DR MORRELL AND HE WILL BE COMING TO SEE THE PT SHORTLY. PLANS TO MOVE THE PT TO THE BACK ROD IF NEEDED AFTER DR MORRELL SEES HER.
--- NOTE | 2022-02-13 14:44 | NUR ---
THIS CONTACT AGENT TOOK OVER CARE AT 1400. PT IS SLEEPING IN BED AT THIS TIME SHE HAD ANXIETY MEDICATION. DR RAO HAS BEEN BY TO SEE PT AND SHE IS RESTNG QUEITLY. CALL LIGHT IS WITHIN REACH WILL CONTINUE TO MONITOR.
--- NOTE | 2022-02-13 17:04 | NUR ---
PT AO, BUT DOES NOT COOPERATE WELL AT THIS TIME. PT HAS SOILED CLOTHES AND WILL NOT LET ANYONE HELP CLEAN HER UP. PT WOKE UP AND WAS VERY AGITATED AND HAD PULLED OFF HER O2. PT WAS CALMED DOWN AND O2 REAPPLIED SATING AT 92%. PT THEN TOOK MEDICATION FOR AGITATED PER EMAR. PT DID NOT WANT VITALS. WILL CONTINUE TO MONITOR AT THIS TIME. CALL LIGHT IS WITHIN REACH.
--- NOTE | 2022-02-14 04:50 | NUR ---
PT SLEEPING AT SHIFT CHANGE, CLOTHES REMOVED. FECES FOUND ON PATIENTS FEET, IN BETWEEN TOES. PT WAS CLEANED AND PLACED IN GOWN. AT 0200 PT WOKE UP STATING SHE COULDNT BREATH, RT CALLED AND PROVIDED BREATHING TREATMENT. OXYGEN SATS PRIOR TO BREATHING TREATMENT WERE 86% ON 3L. LUNG SOUNDS ARE COURSE WITH MINIMAL AIR MOVEMENT AND ASHEN FACE. NC WAS HALF ON. AFTER BREATHING TREATMENT PT STATED SHE WAS HAVING A LITTLE EASIER TIME BREATHING, SATS 95% WITH PINK COLOR TO FACE. PT WAS ABLE TO WALK TO THE BATHROOM TO VOID AND COOPERATIVE WITH CARE. OSTOMY BAG CHANGED. PT C/O HEADACHE AND GIVEN TYLENOL. PRN SEROQUIL GIVEN FOR AGGITATION.
[2022-02-14 05:15] LABS: Albumin, Blood 2.5 g/dL (3.4-5.0); Anion Gap 3 mmol/L (6-16); Blood Urea Nitrogen 26 mg/dL (8-24); Bun/Creatinine Ratio 45.4 (12.0-20.0); CO2, Blood 31 mmol/L (21-32); Calcium, Blood 9.2 mg/dL (8.5-10.1); Chloride, Blood 112 mmol/L (98-108); Creatinine, Blood 0.57 mg/dL (0.40-1.00); Glomerular Filtration Rate 101 (60-); Glucose, Blood 177 mg/dL (70-99); Phosphorus, Blood 2.7 mg/dL (2.5-4.9); Potassium, Blood 3.9 mmol/L (3.5-5.5); Sodium, Blood 146 mmol/L (136-145)
--- NOTE | 2022-02-14 17:15 | NUR ---
PT AOX1 AND CAN BE ANXIOUS AND AT TIMES WILL SWING OUT IF SHE IS SHORT OF O2 DUE TO TAKING OFF OXYGEN. PT IS A 1 PERSON ASSIST TO COMODE DUE SOB. PT REFUSED ALL BREATHING TREATMENTS UNTIL AFTERNOON AND REQUESTED TREATMENT. THIS THERAPIST PHYS ASSISTED PT HOLDING NEBULIZER MASK AND SHE COMPLETED IT. PT WILL TRY TO GET OUT OF BED ON HER OWN WITHOUT ASKING AND NEEDS ASSISTANCE SO SHE DOES NOT PULL OUT IV. PT TREATED FOR AGITATION PER EMAR. WILL CONINTINUE TO MONITOR CALL LIGHT IS WITHIN REACH. COLOSTOMY BAG CHANGED X2 TODAY.
--- NOTE | 2022-02-15 04:20 | NUR ---
PT AGREEABLE TO TAKE MEDICATION BUT CONTINUES TO BE YELL AT STAFF. AROUND 2100 PT SCREAMING THAT SHE WANTED A WARM BLANKET, WHEN STAFF ARRIVED PT EMPTIED OSTOMY OVER THE BED AND PARTIALLY ON STAFF. PT SCREAMS IN STAFFS FACE WHEN CLOSE. 0200 PT GOT OUT OF BED AND URINATED ON THE FLOOR, WHILE CLEANING THE PATIENT AND GETTING DEPENDS ON, PT ATTEMPTED TO PUNCH STAFF AND RIPPED OXYGEN TUBBING. PT REFUSING TO WEAR OXYGEN AND SCREAMING AT STAFF THAT SHE CANNOT BREATH. RT CALLED FOR BREATHING TREATMENT, PT AGREEABLE TO WEAR OXYGEN AND TAKE ADDITIONAL SEROQUIL. PT SCREAMS "I WANT TO GO HOME" EVERY COUPLE HOURS THROUGHOUT SHIFT.
[2022-02-15 09:33] LABS: Hematocrit 30.3 % (33.0-51.0); Hemoglobin 8.4 g/dL (11.5-16.0); Mean Corpuscular HGB 20.9 pg (26.0-34.0); Mean Corpuscular HGB Conc 27.7 g/dL (31.5-36.5); Mean Corpuscular Volume 76 fL (80-100); Mean Platelet Volume 9.9 fL (9.1-12.4); Platelet Count 349 K/mm3 (150-400); RDW Coefficient Variation 18.6 % (11.7-14.2); RDW Standard Deviation 50.9 fL (35.1-46.3); Red Blood Cell Count 4.01 M/mm3 (3.80-5.20); White Blood Cell Count 10.47 K/mm3 (4.00-11.30)
[2022-02-15 10:03] LABS: BAND PERCENT MAN 1 % (0-8); BASOPHILS PERCENT MAN 0 % (0-2); EOSINOPHILS PERCENT MAN 0 % (0-6); LYMPHOCYTES ABSOLUTE MAN 0.94 K/mm3 (0.84-5.20); LYMPHOCYTES PERCENT MAN 9 % (21-46); MONOCYTES ABSOLUTE MAN 0.31 K/mm3 (0.16-1.47); MONOCYTES PERCENT MAN 3 % (4-13); NEUTROPHILS ABSOLUTE MAN 9.21 K/mm3 (1.96-9.15); SEG NEUTROPHILS PERCENT MAN 87 % (41-73); TOTAL CELLS COUNTED 100
[2022-02-15 10:31] LABS: Albumin, Blood 2.4 g/dL (3.4-5.0); Anion Gap 5 mmol/L (6-16); Blood Urea Nitrogen 28 mg/dL (8-24); Bun/Creatinine Ratio 51.7 (12.0-20.0); CO2, Blood 29 mmol/L (21-32); Calcium, Blood 9.1 mg/dL (8.5-10.1); Chloride, Blood 114 mmol/L (98-108); Creatinine, Blood 0.54 mg/dL (0.40-1.00); Glomerular Filtration Rate 102 (60-); Glucose, Blood 171 mg/dL (70-99); Potassium, Blood 4.2 mmol/L (3.5-5.5); Sodium, Blood 148 mmol/L (136-145)
--- NOTE | 2022-02-15 18:08 | NUR ---
SHIFT SUMMARY PT A&OX3-4, MOOD UP AND DOWN T/O SHIFT. PT @ TIMES IS IN PLEASENT MOOD, THEN WILL YELL OUT @ STAFF W/ C/O NOT BEING ABLE TO BREATH. ENTRY LEVEL LAB TECHNICIAN CONTACTED FOR PRN INHALERS T/O SHIFT. 3L NC, PT BECOMES IRRITATED AND WILL THROW NC AWAY FROM HER. SPUTUM SAMPLE COLLECTED THIS SHIFT, PENDING RESULTS. OSTOMY DRAINING DARK THIN STOOL. PT C/O NEED TO URINATE, URINATED ON FLOOR ONCE THIS SHIFT. PT ALSO UTILIZED BEDSIDE COMODE. CONTACTED FOR ADDITIONAL PRN ANXIETY MEDICATION, PLAN TO MEDICATE PER EMAR PRN. VSS. CALL LIGHT W/IN REACH. PT ATE MINIMAL T/O SHIFT, PT CURRENTLY WORKING ON DINNER TRAY.
[2022-02-16 05:38] LABS: Albumin, Blood 2.2 g/dL (3.4-5.0); Anion Gap 4 mmol/L (6-16); Blood Urea Nitrogen 18 mg/dL (8-24); Bun/Creatinine Ratio 35.9 (12.0-20.0); CO2, Blood 29 mmol/L (21-32); Calcium, Blood 8.8 mg/dL (8.5-10.1); Chloride, Blood 112 mmol/L (98-108); Glomerular Filtration Rate 104 (60-); Glucose, Blood 169 mg/dL (70-99); Phosphorus, Blood 2.6 mg/dL (2.5-4.9); Potassium, Blood 4.2 mmol/L (3.5-5.5); Sodium, Blood 145 mmol/L (136-145)
--- NOTE | 2022-02-16 17:16 | NUR ---
SHIFT SUMMARY PT A&O X4, MOOD UP AND DOWN T/O SHIFT. PT RANDOMLY YELLS OUT FRUSTERATED BECAUSE SHE CAN NOT BREATH-MEDICATED PER EMAR FOR SOB. UP TO BSC 1X. OSTOMY DRAINING DARK THIN STOOL. IV INFILTRATED THIS SHIFT, NEW ONE STARTED. CALL LIGHT W/IN REACH. VSS. 2MD HOLD @ THIS TIME.
--- NOTE | 2022-02-17 04:17 | NUR ---
A&OX4. V/S WNL. O2@5LPM VIA NC. BSC,1-ASSIST. BED ALARM ON/VIDEO. UNCOOPERATIVE WITH CARES AT TIMES. VERBALLY AGRESSIVE AND REFUSING CARE. PT REFUSED OSTOMY POUCH/BAG. IV TO R) FOREARM. REGULAR DIET. CONTINENT/INCONTINENT OF URINE. BRIEFS IN PLACE. OSTOMY BAG EMPTIED TWICE. WILL CONTINUE TO MONITOR.
[2022-02-17 05:24] LABS: Albumin, Blood 2.2 g/dL (3.4-5.0); Anion Gap 3 mmol/L (6-16); Blood Urea Nitrogen 25 mg/dL (8-24); Bun/Creatinine Ratio 52.6 (12.0-20.0); CO2, Blood 30 mmol/L (21-32); Calcium, Blood 8.8 mg/dL (8.5-10.1); Chloride, Blood 111 mmol/L (98-108); Creatinine, Blood 0.48 mg/dL (0.40-1.00); Glomerular Filtration Rate 105 (60-); Glucose, Blood 136 mg/dL (70-99); Potassium, Blood 4.4 mmol/L (3.5-5.5); Sodium, Blood 144 mmol/L (136-145)
--- NOTE | 2022-02-17 17:40 | NUR ---
Shift Summary A/Ox2. Labile mood and quite demanding. Patient is apologetic for demanding behavior. Currently on 4L NC. Somewhat [place]. Reported this morning that new IV placed was painful, but no longer complaining of it as the day progressed. Some agitation and anxiety noted. Also c/o not being able to breathe, oxygen sat checked and it was 95%. PRN meds given with good effect. Ostomy leaked, new ostomy placed. Patient drinking more fluids today, loves chocolate ensure and pepsi. Productive cough with large thick green phlegm. First bag of NS @ 100 mLs/hr. Good day after PRN meds given.
--- NOTE | 2022-02-18 04:50 | NUR ---
A&OX4. FORGETFUL, ANXIOUS & IRRITABLE AT TIMES. V/S WNL. 02 @4LPM VIA ID. BSC,1-ASSIST, GB. BED ALARM ON/ON VIDEO AT ALL TIMES. VOIDS W/O DIFFICULTY. ILEOSTOMY BAG EMPTIED OUT TWICE: LIQUID BROWN STOOL. IV TO L) UPPER ARM; 2ND BAG OF NS INFUSING @1OO ML/HR. REGULAR DIET. DNR. WILL CONTINUE TO MONITOR.
--- NOTE | 2022-02-18 15:42 | NUR ---
NEW PIV PIV IN L UPPER ARM INFILTRATED. DC'D WITH CATH TIP INTACT. SITE WITH NO REDNESS AND MINIMAL SWELLING. NEW PIV STARTED IN R FA WITH 22 G X 2 ATTEMPTS. FLUSHES WELL W/10MLS NS.
--- NOTE | 2022-02-18 17:07 | NUR ---
SHIFT SUMMARY PT A&O X 3. VSS. PT AT TIMES IS PLEASANT & COOPERATIVE AND AT OTHER TIMES IS YELLING & ANGRY. DOES C/O ANXIETY AND WILL STATE AT TIMES SHE'S HAVING A HARD TIME BREATHING. MEDICATED FOR BOTH COMPLAINTS. (SEE EMAR). O2 SATS ON 2 L's >90%. IS 1 PERSON ASSIST TO BSC/CHAIR. COLOSTOMY & BAG ARE INTACT, PATENT AND DRAINING WNL's.
--- NOTE | 2022-02-19 05:15 | NUR ---
A&OX4. COOPERATIVE/UNCOOPERATIVE WITH CARES. PLEASANT/UNPLEASANT AT TIMES. V/S WNL. 02@2LPM VIA NC. IV TO R)FA. REGULAR DIET. DNR. OSTOMY BAG IN SITU AND EMPTIED OUT 3 TIMES. BSC,1-ASSIST. CONTINENT/INCONTINENT OF URINE. WILL CONTINUE TO MONITOR. PRN ROXANOL X2 FOR AIR HUNGER/PAIN & PRN SEROQUEL FOR AGITATION.
--- NOTE | 2022-02-19 17:05 | NUR ---
SHIFT SUMMARY A&O X 4. IS COOPERATIVE & PLEASANT AT TIMES & UNCOOPERATIVE & UNPLEASANT AT TIMES. VSS. DNR. 22G PIV IN R FA, INTACT & PATENT. REGULAR DIET, APPETITE IS GOOD. OSTOMY BAG IS INTACT AND DRAINING WELL, EMPTIED 2 X'S TODAY. SHE IS 1 ASSIST TO BSC. PER MD ORDERS GAVE ROXANOL FOR C/O DYSPNEA & SEROQUEL FOR AGITATION & C/O ANXIETY. PLAN IS FOR SNF/REHAB PLACEMENT.
--- NOTE | 2022-02-20 19:53 | NUR ---
END OF SHIFT SUMMARY: PATIENT EXPERIENCED MODERATE AIR HUNGER IN THE MORNING. PRN MEDICATIONS AND RT TREATMENTS MANAGED THIS AIR HUNGER. PATIENT EXPERIENCES SHORTNESS OF BREATH WITH OUT OF BED ACTIVITY AND AGITATION. PATIENT REPORTED HIGH LEVELS OF PAIN THROUGHOUT THE SHIFT. MEDICATED PER PRNS AND SUPPORTIVE MEASURES (SNACKS, COFFEE, ETC). PATIENT CALM AND APPRECIATIVE OF CARE IN GENERAL. PATIENT EXPERIENCED A SHORT EPISODE OF AGITATION THIS AFTERNOON. PATIENT IN THE HALLWAY YELLING AT STAFF. ABLE TO REDIRECT THE PATIENT AND SHE THEN SAT CALMLY IN HER BED.
--- NOTE | 2022-02-21 17:38 | NUR ---
END OF SHIFT SUMMARY: PATIENT COMPLAINED OF PAIN THROUGHOUT THE SHIFT. PATIENT EXPERIENCES SHORTNESS OF BREATH AT TIMES WITH ANXIETY AND ACTIVITY. PATIENT STABLE ON 2L O2 VIA NC. PATIENT IRRITABLE AT TIMES, BUT IS REDIRECTABLE AND OVERALL CALM AND COOPERATIVE WITH CARE.
--- NOTE | 2022-02-22 06:35 | NUR ---
PT labile verbally abusive with multiple requests & ongoing attention seeking behavior. Unreasonable requests & loud curses to staff multiple times during 12 hour shift. Tolerating diet & activity but she declines some medications & has unreasonable expectations for care. Does not accept the valid reasons why staff cannot complete unreasonable requests. Constantly uses call reeder to ask for 1 to 1 care & she denies overusing the reeder.
--- NOTE | 2022-02-22 17:22 | NUR ---
SHIFT SUMMARY PT RESTING IN BED TODAY. REFUSED TO GET UP INTO CHAIR FOR MEALS. GETS UP TO USE THE BSC FOR TOILETING. BEDBATH COMPLETED THIS AM WITH WOUND CARE & OSTOMY APPLIANCE CHANGE. PT MEDICATED FOR PAIN TWICE THIS SHIFT. MEDICATED FOR AGITATION ONCE. PT WAXES AND WANES WITH COOPERATION AND AGITATION. VERY FORTGETFUL AND HAS TO BE REMINDED OF THINGS OFTEN. PHOTO TAKEN OF ABRASION ON L MACI[place]. NO OTHER ACUTE CHANGES IN ASSESSMENT AT THIS TIME. VS REIVEWED. [facility] [place] PT RESTING IN BED WATCHING TV.
--- NOTE | 2022-02-23 04:50 | NUR ---
SHIFT SUMMARY PT HAS BEEN AGITATED AT THE BEGINNING OF SHIFT. PRIOR TO SHIFT CHANGE HOUSEKEEPING CAME IN TO CLEAN ROOM BECAUSE PT HAS BEEN THROWING FOOD ALL OVER. SHE CALMED DOWN AFTER WE BROUGHT HOT COFFEE AND MEDS. SHE WAS PLEASANT. RESPIRATORY THERAPIST CAME IN WELL FOR BREATHING TREATMENT. AFTER FEW MINUTES SHE STARTED GETTING AGITATED AGAIN. THROWING CUPS, YELLING/SCREAMING, CURSING, SPITTING AND SPILING BODY FLUIDS TO STAFF AND ON KEYBOARD/COMPUTER. HOUSEKEEPING WAS CALLED IN AGAIN TO CLEAN THE ROOM. CALLED DR. PEREZ, NOTIFY OF THIS INCIDENT. ORDERS FOR VEST AND ZYPREXA (ONE TIME), BUT NEVER USE IT OVERNIGHT BECAUSE PT STARTED TO CALM DOWN AND FELL ASLEEP. PT REFUSE TO USE O2 NASAL CANULA WELL. SATS OVER 90% ON ROOM AIR. 1 SBA FOR SAFETY WITH FWW. PT REFUSE FWW, GETS UP WITHOUT ASSISTANCE ESPECIALLY WHEN SHE'S AGITATED. RESTRAINTS DC'D (not used). CALL LIGHT WITHIN REACH. WILL PROVIDE AN UPDATE TO ONCOMING NURSE.
--- NOTE | 2022-02-23 10:28 | NUR ---
PT KEEPS CALLING 911. TRY TO GET PATIENT TO PUT ON OXYGEN AND SHE REFUSED. PT IS THROWING CALL LIGHT ONTO FLOOR.
--- NOTE | 2022-02-23 12:34 | NUR ---
pt resting in bed complains of increased pain. Difficult for her to track conversation gets aggitated. She has some burden of ventilation that is mild but effects her aggitation and then states she is short of breath. Will review the medication may need to increase seroquel and if discharge delay consider comfort care and judicous review of increasing narcotics.
--- NOTE | 2022-02-23 17:47 | NUR ---
PATIENT IS ALERT TO SELF, FOLLOWING DIRECTIONS AND FAMILY. SHE IS AGITATED AT TIMES. THROWS THINGS IN HER ROOM. C/O MIGRAINE. MEDICATED PAIN AND AGITATION PER EMAR. IMPULSIVE AND WILL GET OOB WITHOUT ASSISTANCE. CAMERA MONITORING. ON 2L O2 VIA NC. WILL CONTINUE TO MONITOR
--- NOTE | 2022-02-24 05:33 | NUR ---
SHIFT SUMMARY AOX3-SELF, PLACE, SITUATION. FORGETFUL, IMPULSIVE. VSS. DENIES N/V. REPORTS MIGRAINE & GENERALIZED PAIN, MEDICATED 1X c 2.5MG ROXANOL SINCE PT REFUSED TYLENOL. REPORTS DYSPNEA "ALL THE TIME," SPO2 >90% ON 2L, PT DOES TAKE NC OFF AT TIMES & REFUSES TO WEAR, E/U RESP, LS c EXPIRATORY WHEEZES T/O, RECIEVING BREATHING TX. HAD 1 EPISODE OF AGITATION & YELLED FOUL LANGUAGE, OTHERWISE HAS BEEN PLEASENT & COOPERATIVE. COLOSTOMY EMPTIED 100ML SOFT LOOSE BROWN BM. CALL LIGHT IN REACH. WILL MONITOR.
--- NOTE | 2022-02-24 17:01 | NUR ---
PATIENT IS ALERT AND ORIENTED WITH TIMES OF CONFUSION AND AGITATION. SHE THROWS FOOD AT TIMES. ON 2L O2 VIA NC. SBA IN THE ROOM. CALLS APPROPRIATELY AT TIMES AND OTHER TIMES SHE WILL GET OOB ON HER OWN TO USE THE RESTROOM OR WALK TO THE HALLWAY. MEDICATED FOR PAIN AND AGITATION PER EMAR. WILL CONTINUE TO MONITOR
--- NOTE | 2022-02-25 06:07 | NUR ---
SHIFT SUMMARY NO ACUTE CHANGES THIS SHIFT. MORE PLEASENT & COOPERATIVE c CARE. NO OUTBURTS, FOUL LANGUAGE OR THROWING ITEMS NOTED. AOX3. REPORTS 10/10 PAIN THIS AM, MEDICATED 1X c 2.5MG ROXANOL. REPORTS DYSPNEA ALL THE TIME. LS DIM c EXP WHEEZES T/O. SPO2 >90% ON 2L 02 PRN, PT TAKES NC OFF OCCASIONALLY. RECIEVING TX PER RT. SBP SOFT, RUNNING 90'S, OTHERWISE REST OF VSS. EMPTIED 300ML BROWN, SOFT LOOE BM FROM COLOSTOMY. CALL LIGHT IN REACH. WILL MONITOR.
--- NOTE | 2022-02-25 13:33 | NUR ---
DNR (CURRENT) VS RESUS THIS AM WHILE DOING THE PATIENTS ASSESSMENT, SHE STATED THAT SHE WOULD WANT CPR IF SOMETHING WOULD HAPPEN. CALL PLACED TO PALLIATIVE CARE AND TO PROVIDER. WILL WAIT FOR [facility] TO TAKE PLACE BEFORE ANY CHANGE TO CODE STATUS IS MADE.
--- NOTE | 2022-02-25 16:28 | NUR ---
CALLLED PROVIDER DOUGLAS REGARDING BLOOD PRESSURE READINGS RUNNING ON THE LOW END. VERAPAMIL DOSE WILL BE ADJUSTED. DR. COLE IS ENTERING THE CHANGES AT THIS TIME.
--- NOTE | 2022-02-25 21:58 | NUR ---
AGITATION ROUGHLY AROUND 2029 PT VERY AGITATED, CURSING, USING FOUL LANGUAGE TOWARDS STAFF, SET BED ALARM OFF, AMBULATED OUT TO ROD YELLING & SCREAMING AT STAFF & STOOD AT DOORWAY WHILE STAFF WAS IN ANOTHER PTS RM. PT STARTED YELLING AT OTHER PT, WALKED PT BACK TO HER RM & SHE SLAMMED DOOR. INFORMED PT I WOULD GET HER SOME MEDICATION TO HELP WITH HER AGITATION. MEDICATED PT AT 2044 c PRN SEROQUEL. WILL MONITOR.
--- NOTE | 2022-02-26 05:03 | NUR ---
SHIFT SUMMARY AOX3-FORGETFUL. BECAME LESS AGITATED, ABLE TO REST COMFORTABLY AFTER RECIEVING PRN & SCHEDULED SEROQUEL. VSS, SBP STILL MID 90'S. REST OF VSS. SPO2 ON RA @94% AFTER PT HAD TAKEN NC OFF FOR AWHILE, HOWEVER PT REQUESTS TO USE IT FOR COMFORT. BREATH SOUNDS HAVE EXP WHEEZES T/O. REPORTS DYSPNEA ALL THE TIME. REPORTS 9/10 PAIN IN NECK & BACK, MEDICATED 1X c 2.5 MG ROXANOL. COLOSTOMY EMPTIED c SOFT BROWN LOOSE BM. BED ALARM IN PLACE, WILL MONITOR.
--- NOTE | 2022-02-26 17:39 | NUR ---
SHIFT SUMMARY PT AxOx3. PT HAD APPROPRIATE BEHAVIOR/MOOD FOR MOST OF THIS SHIFT. AROUND 1600 PT BECAME INCREASINGLY AGITATED WITH CRUDE LANGUAGE AND REFUSAL OF CARE SUCH MEDICATION AND VITAL SIGNS. PT WAS SLAMMING DOORS IN HER ROOM AND THROWING ITEMS AGAINST THE WALL AFTER BEING TOLD SHE WAS NOT DUE FOR HER PAIN MEDS YET. PT ANGRILY REFUSES TYLENOL FOR BREAKTHROUGH PAIN BECAUSE "TYLENOL IS BAD FOR THE LIVER." PT DECLINES TO REMOVE SHOES THIS SHIFT. PT MEDICATED WITH SEROQUEL AFTER ANGER OUTBURST. PT ON CAMERA TO MONITOR FOR ERRATIC BEHAVIORS. INDEPENDENT IN THE ROOM WITH FWW. PT SELF CARE WITH COLOSTOMY THIS SHIFT. DENIES NEED FOR CHANGING OR SUPPLIES. VITALS REVIEWED. PT IS CURRENTLY SITTING IN ROOM EATING DINNER WITH CALL LIGHT IN REACH.
--- NOTE | 2022-02-27 04:28 | NUR ---
SHIFT SUMMARY AOX3-SELF, PLACE, DATE. FORGETFUL & AGITATED AT TIMES. HAS BEEN MORE PLEASENT TONIGHT THEN PREVIOUS NIGHTS c LESS OUTBURTS OR YELLING FOUL LANGUAGE AT STAFF AFTER RECIEVING SCHEDULED SEROQUEL & PRN SEROQUEL 1X. VSS. REPORTS 04/22 PAIN R/T MIGRAINE & BACK PAIN, MEDICATED 2X c 2.5 MG ROXANOL, PT STATES IT "HELPS A LITTLE". PT WOKE UP AROUND 0300 c L NARES BLEEDING SIGNIFICANTLY, PLACED TAMPON. DENIES N/V. REPORTS SHES ALWAYS DYSPNIC, SPO2 93% ON RA, WEARS 2L O2 PRN FOR COMFORT. LS DIM c FINE EXP WHEEZES. E/U RESP, NO COUGH. COLOSTOMY SOFT, LOOSE, BROWN BM. CALL LIGHT IN REACH. WILL MONITOR.
--- NOTE | 2022-02-27 18:04 | NUR ---
PT HAS BEEN UPSET THIS AM, IMPROVED T/O DAY. NO SLAMMING DOOR, NO STOMPING FWW. I DISCUSSED THE INCREASE IN PAIN MED AND IN TIMING OF MED. SHE APPROVED. DISCUSSED THE INCREASE IN SEROQUEL. STATES UNDERSTANDS. DAUGHTER CALLED, I WAS UNABLE TO ANSER AT THAT TIME. PT AGREED LATER IS OKAY TO SPEAK TO HER, CHART NOTED WITH HER PHONE #. NO NEW ISSURE THIS DAY. BED IN LOW POSITION, CALL LITE IN REACH, CALLS APPROP
--- NOTE | 2022-02-28 05:02 | NUR ---
SHIFT SUMMARY AOX3-SELF, TOWN, PLACE. FORGETFUL. PT HAS BEEN MOSTLY PLEASENT & COOPERATIVE COMPARED TO PREVIOUS NIGHTS LISA PROVIDED CARE. HASNT THROWN ANYTHING OR USED ANY FOUL LANGUAGE TONIGHT. FOLLOWS DIRECTIONS. VSS. IND IN RM. HAD ROUGHLY 400ML LOOSE BROWN BM OUT COLOSTOMY TONIGHT. REPORTS 9/10 PAIN IN BACK, HEAD & ALLOVER REST OF BODY, MEDICATED c 5MG ROXANOL & PT STATES IT HELPS c PAIN. HAS SLEPT WELL TONIGHT. AWAITING PLACEMENT. CALL LIGHT IN REACH & PT ABLE TO MAKE NEEDS KNOWN.
--- NOTE | 2022-02-28 17:02 | NUR ---
SHIFT SUMMARY PATIENT IS ALERT AND ORIENTATED X3. PATIENT HAS BEEN PLEASENT AND COOPERATIVE WITH CARE WITH BOUTS OF AGITATION THIS SHIFT. PATIENT QUESTIONS ABOUT HER MEDICATIONS. PATIENT HAS COMPLAINED OF PAIN THIS SHIFT. MEDICATED PER EMAR. PATIENT HAS NOT COMPLAINED OF SOB, NAUSEA, OR VOMITTING THIS SHIFT. NO ACUTE EVENTS THIS SHIFT. VITAL SIGNS REVIEWED. BED IN LOCKED AND LOWEST POSITION. CALL LIGHT IN PLACE. WILL MONITOR UNTIL SHIFT CHANGE.
--- NOTE | 2022-03-01 05:09 | NUR ---
ADMISSIONS DEAN SUMMARY ADMITTED FOR COPD EXACERBATION. SHE IS A DNR. PLAN FOR DC WITH HOSPICE. THE PATIENT IS INDEPENDENT IN THE ROOM WITH FWW. SHE HAS 2L BY [place] PRN FOR ANXIETY AND ASTHMA SOB. NO IV, NO TELE. SHE HAS AN OSTOMY TO THE RLQ THAT SHE CAN MANAGE INDEPENDENTLY, BUT SOMETIMES REQUESTS HELP. THE PATIENT WAS MEDICATED X2 FOR PAIN THAT IS CHRONIC FROM AN OLD TBI.
--- NOTE | 2022-03-01 06:22 | NUR ---
PT BECOMING VERY AGITATED WITH STAFF. REQUESTING MORE PAIN MEDICATION BUT INFORMED THAT IT IS NOT DUE UNTIL 0730 PER ORDERS. PT SAYS "DR COLE TOLD ME I COULD HAVE IT WHENEVER I WANTED." OFFERED TYLENOL; PT RAISING VOICE AND CUSSING AT THIS RN. PT REQUESTING OSTOMY BE EMPTIED. PT INFORMED THAT THIS RN EMPTIED IT TWO HOURS AGO AND THERE IS VERY LITTLE OUTPUT. SHE WAS TOLD THAT SHE HAD BEEN DOING IT PREVIOUSLY AND COULD EMPTY IT IN THE BATHROOM IF SHE LIKED. PT BECAME AGGRESSIVE, THROWING CALL LIGHT, OXYGEN TUBING, AND WALKER. STAFF REMOVED FROM ROOM DUE TO BEHAVIOR. PT SLAMMING DOORS AND THROWING EQUIPMENT. SHE WAS INFORMED THAT THIS BEHAVIOR WAS UNACCEPTABLE BUT RESPONDS WITH SAYING "GET THE FUCK OUT OF MY ROOM". PANEL ASSEMBLER NOTIFIED AND SPOKE WITH PT ABOUT PAIN MEDICATION AND WAS THEN TOLD TO LEAVE THE ROOM. PT ON CAMERA AT THIS TIME AND BEING MONITORED FOR DISTRUCTIVE BEHAVIOR.
--- NOTE | 2022-03-01 16:45 | NUR ---
SHIFT SUMMARY PATIENT IS ALERT AND ORIENTED. PATIENT HAS BEEN IND IN ROOM THIS SHIFT. PATIENT HAS BEEN PLEASENT AND COOPERATIVE WITH CARE THIS SHIFT. PATIENT HAS HAD NO COMPLAINTS OF SOB, NAUSEA OR VOMITTING THIS SHIFT. PATIENT HAS HAD PAIN IN BACK THIS SHIFT. MEDICATED PER EMAR. BED IS LOCKED AND IN LOWEST POSITION. NO ACUTE EVENTS THIS SHIFT. WILL MONITOR UNTIL SHIFT CHANGE.
--- NOTE | 2022-03-02 04:55 | NUR ---
PT ALERT TO SELF, PLACE AND YEAR. VERY WITHDRAWN HOWEVER ANSWERS QUESTIONS. PT VERY FOCUSED ON HER MEDICATOINS AND WHEN GIVEN WANTS TO WRITE EVERYTHING DOWN. PT ON 2L NC. PT LIZETH TO SLEEP T/O W/O NEW COMPLAINS. MEDICATED WITH ROXANOL X1 FOR PAIN.
--- NOTE | 2022-03-02 17:34 | NUR ---
SHIFT SUMMARY: NO ACUTE EVENTS. C/O PAIN IN HIP/FEMUR, RIBS; MEDICATED PER EMAR. ANGERS EASILY WHEN SHE DOESN'T GET HER WAY OR IF HER REQUESTS ARE NOT MET IMMEDIATELY; HAD AN EPISODE OF SWEARING AT THIS AUTHOR LATE THIS MORNING. SHE SHOWS OBSESSIVE BEHAVIOR ABOUT EMPTYING HER COLOSTOMY, WANTS STAFF TO EMPTY IT VERY OFTEN EVEN WHEN IT'S NEARLY EMPTY. INDEPENDENT IN ROOM WITH FWW. APPETITE OK. HAD VISIT FROM HER DAUGHTER YENNI TODAY. AWAITING PLACEMENT.
--- NOTE | 2022-03-03 05:35 | NUR ---
SHIFT SUMMARY: PT IS ALERT AND ORIENTED WITH MILD CONFUSION. PT IS CALM AND COOPERATIVE WITH CARE T/O THE NIGHT. PT IS INDEPENDENT AND CALLS APPROPRIATELY. PT REPORTS PAIN ON SEVERAL OCCASIONS, MEDICATING PER EMAR. PT DENIES NAUSEA, VOMITING, AND SOB. PT SLEPT MUCH OF THE NIGHT WHEN NOT DISTURBED. NO ACUTE CHANGES OR COMPLICATIONS THIS SHIFT. BED IN LOW POSITION, CALL LIGHT WITHIN REACH. WILL CONTINUE TO MONITOR.
--- NOTE | 2022-03-03 18:37 | NUR ---
SHIFT SUMMARY: NO RESTRAINTS IN USE THIS SHIFT. NO ACUTE EVENTS. MOOD IS LABILE, WILL GET INSTANTLY ANGRY AND THROW THINGS IF SHE DOES NOT GET WHAT SHE REQUESTS IN A TIMELY MANNER, WILL SWEAR AT STAFF; HAD TWO OF THESE EPISODES TODAY. COLOSTOMY WITH LIQUID STOOL. APPETITE MODERATE. MEDICATED FOR PAIN PER EMAR; STATED THAT PAIN IS NOT WELL CONTROLLED. INDEPENDENT IN ROOM WITH FWW. DECLINED ORAL CARE, LINEN CHANGE, AND BATHING TODAY.
--- NOTE | 2022-03-04 05:13 | NUR ---
NO NEW CHANGES . HANNA ACTUALLY SLEPT WELL MOST OF THE NIGHT. SHE WOKE TWICE TO USE COMMODE, AND RECEIVED ONE OXYCODONE TWICE WITH GOOD RESPONSE. COLOSTOMY WAS EMPTIED ONCE WHICH YEILDED A MEDIUM SIZED SOFT BROWN STICKY STOOL,
--- NOTE | 2022-03-04 12:10 | NUR ---
LATE ENTRY 1120:CRASH HEARD FROM ROOM. FOUND PT SITTING ON THE FLOOR JUST OUTSIDE THE RESTROOM, APPARENT FALL. SHE DENIES ANY INJURY. DENIED ASSISTANCE FOR HELP TO RETURN TO BED. GOT HERSELF TO THE EDGE OF THE BED AND GOT HERSELF UP & BACK TO BED. RN NOTED A SMALL SKIN HER ON HER L FA. CLEANED, DRESSED WITH TEGADERM & WRAPPED COBAN. PT CONTINUES TO DENY PAIN OR ANY OTHER INJURY. [facility] NURSE & PT'S MD NOTIFIED AND AWARE. NO NEW ORDERS FROM MD RECEIVED. REVIEWED THE NEED FOR PT TO USE CALL LIGHT AND TO ASK FOR HELP WHEN GETTING UP.
--- NOTE | 2022-03-04 18:21 | NUR ---
SHIFT SUMMARY NO CHANGES TODAY OTHER THAN EARLIER DOCUMENTED NO SIGNIFICANT INJURY FALL. SMALL SKIN TEAR ON L FA. HAS BEEN MEDICATED TWICE WITH PAIN MEDS WITH GOOD RESULTS. PT HAS BEEN EMPTYING HER OWN COLOSTOMY. APPETITE GOOD. VSS. CONTINUING TO WAIT ON PLACEMENT.
--- NOTE | 2022-03-05 03:39 | NUR ---
PATIENT MINIMALLY AGITATED EARLY IN THE EVENING, UPSET THAT SHE COULD NOT GET "THE IV PAIN MEDICINE THAT I NEED". SPENT TIME IN WITH DANIE IN AN EFFORT TO REDIRECT PATIENT INTO WORKING ON GETTING STRONGER AND MORE INDEPENDENT IN HER DAILY ACTIVITIES. AFTER APPROXIMATELY 15 MINUTES, HANNA WAS SLEEPING. ORAL PAIN MEDICATIONS GIVEN TWICE, AND EACH TIME COINCIDED WHEN SHE WOKE TO USE THE BATHROOM. OVERALL, SHE SLEPT VERY WELL, AND WAS PLEASANT AND COOPERATIVE WITH CARE.
--- NOTE | 2022-03-05 18:03 | NUR ---
SHIFT SUMMARY A&O X 2-3. VSS. PT MINIMALLY AGITATED TODAY. SHE HAD ONE EPISODE OF AGGRESSIVE AGITATION, THROWING HER WATER ON THE FLOOR, CUSSING AND YELLING AT STAFF. EMPTIED HER COLOSTOMY ONCE TODAY OF THICK STICKY BROWN STOOL APPROX 100CCS. SHE TYPICALLY EMPTIES HER OWN BAG. SHE DID EMPTY IT TODAY NUMEROUS TIMES. OTHERWISE NO CHANGES TODAY. MEDICATED HER FOR PAIN PER EMAR. PLAN IS PLACEMENT TO SNF ONCE ACCEPTED.
[2022-03-06 05:42] LABS: Hematocrit 27.6 % (33.0-51.0); Hemoglobin 7.5 g/dL (11.5-16.0); Mean Corpuscular HGB 21.1 pg (26.0-34.0); Mean Corpuscular HGB Conc 27.2 g/dL (31.5-36.5); Mean Corpuscular Volume 78 fL (80-100); Mean Platelet Volume 10.3 fL (9.1-12.4); Platelet Count 326 K/mm3 (150-400); RDW Coefficient Variation 22.4 % (11.7-14.2); RDW Standard Deviation 60.8 fL (35.1-46.3); Red Blood Cell Count 3.55 M/mm3 (3.80-5.20); White Blood Cell Count 4.52 K/mm3 (4.00-11.30)
[2022-03-06 06:15] LABS: Albumin, Blood 2.5 g/dL (3.4-5.0); Albumin/Globulin Ratio 0.6 (0.8-1.8); Bilirubin, Total 0.2 mg/dL (0.1-1.0); Bun/Creatinine Ratio 39.9 (12.0-20.0); Calcium, Blood 8.9 mg/dL (8.5-10.1); Creatinine, Blood 0.58 mg/dL (0.40-1.00); Globulin, Blood 4.1 g/dL (2.2-4.0); Total Protein, Blood 6.6 g/dL (6.4-8.2)
--- NOTE | 2022-03-06 06:40 | NUR ---
NO CHANGES OVERNIGHT NOTED. PATIENT ACTUALLY SLEPT MOST OF THE NIGHT. SHE RECEIVED OXYCODONE TWICE OVERNIGHT WITH GOOD RESULT. ONLY ONE SMALL OUTBURST WHEN THE PATIENT WAS TOLD SHE WOULD HAVE TO WAIT TO GET ICE AND ICE WATER WHILE STAFF FINISHED UP WITH ANOTHER PATIENT PROCEDURE.
[2022-03-06 10:51] LABS: Thyroid Stimulating Hormone 4.41 uIU/mL (0.360-4.800)
--- NOTE | 2022-03-06 16:58 | NUR ---
DAYSHIFT SUMMARY No acute changes to patient status, awaiting placement. RLQ colostomy bag in place, soft brown stool noted. Patient emptying bag herself. Complained of severe pain, reports pain in back, neck, femur, pelvis, stated that 5mg of oxycodone is not enough and would like the MD to increase dosage. Vitals stable, no other concerns at this time.
--- NOTE | 2022-03-07 05:32 | NUR ---
SHIFT SUMMARY 67 YR F ADMITTED SINCE 02/13/22 W/ VASCULAR DIMENTIA AND A HX OF TBI COGNITIVE ISSUES. DNR. NO ACUTE CHANGES THIS SHIFT. PT GETS GRUMPY AT MED PASS COMPLAINING THAT HER MED DOSAGES ARE NOT HIGH ENOUGH, BUT SHE WAS EASILY REDIRECTED. SHE STATED THAT SHE IS GETTING VERY BORED IN THE ROOM SO I SUGGESTED SOME COLORING MATERIAL AND BROUGHT HER COLORED PENCILS ANC PICTURES TO COLOR. SHE SEEMED CONTENT WITH THIS. SHE ASKED FOR HELP EMPTYING HER COLOSTOMY BAG BUT WE GOT VERY LITTLE OUT OF IT. SHE IS CONCERNED THAT HER INSURANCE WILL NOT CONTINUE TO PAY FOR COLOSTOMY BAGS.
--- NOTE | 2022-03-07 17:02 | NUR ---
DAYSHIFT SUMMARY No changes to patient status. Patient c/o full body pain, verbalizes frusteration with current PRN orders. Provided education on pain relief, patient unreceptive to education, refused heating pad. Allowed staff to change beeding/clothes today. Patient empties colostomy bag herself. Frequently asks time/date and if it is AM or PM. Reorient patient as needed. Vitals stable, Awaiting placement.
--- NOTE | 2022-03-07 18:33 | NUR ---
Camera monitoring called at 1814 and reported that patient fell. RN entered room patient, was standing up at bedside, asked patient if she fell? Patient yelled No! Get the fuck out! Patient refused further assessment. Camera monitor reported that it appeared like the patient tripped on bed side table, and then fell to her knees. It was not observed that patient hit her head.
--- NOTE | 2022-03-07 20:51 | NUR ---
REMAINS ON CAMERA FOR SAFETY. CALL LIGHT IN REACH
--- NOTE | 2022-03-08 03:31 | NUR ---
[employer] TOWER CONTROLLER SUMMARY HAS BEEN RESTING QUIETLY WITH OCCASIONAL INTERRUPTIONS, SUCH GOING TO THE BATHROOM TO VOID. DOES OWN COLOSTOMY CARE (EMPTYING IT, ETC). UP AD ALBAN WITH CAMERA ON FOR SAFETY. NO FALLS THIS SHIFT. ENCOURAGED TO USE CALL LIGHT IF NEEDS ARRISE.O2 AT 2L/MIN PER NC. LUNG SOUNDS DIMINISHED. CALL LIGHT IN REACH. ALERT TO QUESTIONS ASKED.
--- NOTE | 2022-03-08 17:30 | NUR ---
PATIENT A/OX 2-3, UP INDEPENDENTLY IN ROOM. REPORTS MIGRAINE TODAY AND ROXINOL GIVEN X2 WITH STATED RELIEF. PATIENT PLEASANT AND COOPEATIVE WITH CARE MOST OF THE DAY, BUT DID HAVE A FEW OUTBURSTS TODAY WHERE SHE YELLED AT STAFF AND USED FOUL LANGUAGE. 2LO2 AND RT TREATMENTS, LUNGS DIMINISHED AND COARSE IN BASES. VSS TODAY. SKIN FRAGILE WITH SOME SCATTERED BRUISES AND SCABS. OSTOMY TO RLQ, PATIENT CARING FOR IT WITH SUPERVISION.
--- NOTE | 2022-03-09 07:12 | NUR ---
SHIFT SUMMARY: PATIENT REPORTS MIGRIANE, BACK AND RIB PAIN. ROXANOL WAS GIVEN X2 WITH GOOD EFFECT. PATIENT REPOPRTS SLEEPING WELL. COLOSTOMY IS ACTIVE FOR A BROWN LIQUID STOOL AND FLATUS. PATIENT DOES CARE ON OSTOMY WITH OBSERVATION. LOW GRADE TEMP. OBSERVED, 100.1. PATIENT REFUSED TYLENOL. TEMP. RESULVED ON OWN.
--- NOTE | 2022-03-09 17:58 | NUR ---
SHIFT SUMMARY NO ACUT CHANGES DURING SHIFT. PATIENT ALERT AND ORIENTED, FOLLOWS COMMANDS. PT C/O GENERALIZED PAIN STILL, MEDICATED WITH PRN MEDICATION X2. COLOSTOMY WITH BROWN STOOL AND FLATUS, EMPTIED X 1 DURING SHIFT. PATIENT PENDING PLACEMENT TO FACILITY.
--- NOTE | 2022-03-10 07:02 | NUR ---
SHIFT SUMMARY: PATIENT WAS COOPERATIVE WITH STAFF THIS SHIFT. COLOSTOMY IS ACTIVE FOR A DARK BROWN SOFT STOOL AND FLATUS. PATIENT CONTINUES TO EMPTY OSTOMY IN THE BATHROOM, OUTPUT NOT MEASURED. CONTINUES TO REPORT CHRONIC MAGRAINE/BACK PAIN. ROXANOL 5MG IS GIVE X1 WITH GOOD EFFECT.
--- NOTE | 2022-03-10 18:11 | NUR ---
SHIFT SUMMARY NO ACUTE CHANGES DURING SHIFT. PT ALERT AND ORIENTED, FOLLOWS COMMANDS. PRN PAIN MEDICATION ADMINISTERED FOR GENERALIZED PAIN. PT REMAINS INDEPENDENT, REFUSING HYGIENE FROM STAFF, STATING SHE COMPLETES IT HERSELF WHILE IN THE BATHROOM. PT AWAITING PLACEMENT
--- NOTE | 2022-03-11 05:32 | NUR ---
SHIFT SUMMARY NO ACUTE CHANGES THIS SHIFT. AOX3-SELF, PLACE, DATE, FOLLOWING DIRECTIONS. UNAWARE SITUATION OR WHY IN HOSPITAL. OCCASIONALLY YELLS PROFANITY OR GETS IRRITABLE TOWARDS STAFF. VSS. SPO2 >90% ON RA, NC @BEDSIDE, PT USES PRN. LS DIM IN BASES REPORTS 04/22 PAIN ALLOVER BODY, MEDICATED 1X c 5MG ROXANOL & PT SLEPT SOUNDLY T/O NIGHT. DENIES N/V. COLOSTOMY APPLIANCE C/D/I, PT EMPTIES HERSELF. AWAITING PLACEMENT. CALL LIGHT IN REACH & PT ABLE TO MAKE NEEDS KNOW,
--- NOTE | 2022-03-11 18:12 | NUR ---
SHIFT SUMMARY NO ACUTE CHANGES DURING SHIFT. PT ALERT AND ORIENTED, FOLLOWS COMMANDS. PTS PAIN AT TOLERABLE LEVEL TODAY DURING SHIFT, NO PRN MEDICATIONS NEEDED. COLOSTOMY WITH BROWN SOFT STOOL, FLATUS, PT MANAGING HERSELF. PT STILL AWAITING PLACEMENT. CALL LIGHT WITHIN REACH, WILL CONTINUE TO MONITOR.
--- NOTE | 2022-03-12 04:39 | NUR ---
SHIFT SUMMARY NO ACUTE CHANGE THIS SHIFT. AOX3. FORGETFUL. LABILE EMOTIONS, YELLS PROFANITY @TIMES. VSS. REPORTS 9/10 PAIN IN HEAD & HIPS, MEDICATED 1X c 5MG ROXANOL. PT ABLE TO REST SOUNDLY T/O NIGHT. DENIES N/V OR DYSPNEA. AWAITING PLACEMENT. CALL LIGHT IN REACH.
--- NOTE | 2022-03-12 16:18 | NUR ---
SHIFT SUMMARY PT AxOx3 WITH INTERM CONFUSION AND AGITATED BEHAVIOR. PT DECLINED LINEN CHANGE, SHOWER, BED BATH AND CLOTHING CHANGE THIS SHIFT. PT BECAME ANGRY AND CURSED AT TELESALES REPRESENTATIVE WHEN THEY TRIED TO EXPLAIN THE NEED FOR KEEPING UP ON HER HYGIENE. PT DECLINED ASSISTANCE WITH COLOSTOMY BAG EMPTY/APPLIANCE CHANGE. PT REPORTS PAIN THIS SHIFT. MEDICATED PER EMAR. PT STILL USING O2 NC PRN FOR COMFORT. VITALS REVIEWED. PT CURRENTLY RESTING IN BED WATCHING TV. CALL LIGHT IN REACH.
--- NOTE | 2022-03-13 05:45 | NUR ---
SHIFT SUMMARY NO ACUTE CHANGES THIS SHIFT. AOX2-3, SELF, TOWN, DATE. FORGETFUL SITUATION. IRRITABLE, DEFENSIVE c LABILE MOOD. REFUSING STAFF TO CHANGE SOILED CLOTHING OR ASSIST c HYGIENE. VSS. REPORTS 9/10 PAIN IN HEAD, HIPS, FEMUR, MEDICATED 1X c 5MG ROXANOL & PT ABLE TO REST. HAS INAPPROPRIATE FOUL LANGUAGE AT TIMES. COLOSTOMY RUQ, PT REFUSING STAFF TO ASSIST c EMPTYING & EMPTIES BY HERSELF. AWAITING PLACEMENT. CALL LIGHT IN REACH, WILL MONITOR.
--- NOTE | 2022-03-13 19:34 | NUR ---
SHIFT SUMMARY: PT A/O X 3, IND IN ROOM. PT WAS PLEASANT MOST OF THE DAY. SHE WAS OFFERED SHOWERS, BED BATHS THROUGHOUT THE DAY AND CONTINUOSLY REFUSED THEM. PT DID HAVE REPORTED PAIN TODAY. ROXANOL GIVEN AND WAS EFFECTIVE IN TREATING HER PAIN. PT HAS WET COUGH, NON PRODUCTIVE. PT MANAGING OSTOMY HERSELF. SOFT BROWN STOOL. APPLIANCE IN PLACE CDI.
--- NOTE | 2022-03-14 04:29 | NUR ---
SHIFT SUMMARY NO ACUTE CHANGES THIS SHIFT. VSS. NO COMPLAINTS OF PAIN, N/V OR DYSPNEA THIS SHIFT. HAS SLEPT SOUNDLY T/O NIGHT. COLOSTOMY APPLIANCE C/D/I, BM BROWN & SOFT. AWAITING PLACEMENT. IND IN RM. CALL LIGHT IN REACH.
--- NOTE | 2022-03-14 17:25 | NUR ---
SHIFT SUMMARY: PT A/O X 3, IND IN ROOM. PT SELF MANAGES OSTOMY APPLIANCE. OFFERED PT SHOWER BUT PT REPORTED SHE DID SPONGE BATH HERSELF IN THE BATHROOM THIS AM AND DECLINED SHOWER. PT WAS PLEASANT AND COOPERATIVE WITH CARE. PAIN IS MANAGED WITH ROXANOL 5 MG. PT HAS WET COUGH, ROBITUSSIN GIVEN FOR COUGH. NO OTHER CONCERNS AT THIS TIME.
--- NOTE | 2022-03-15 04:08 | NUR ---
SHIFT SUMMARY - NO ACUTE CHANGES THROUGHOUT THIS SHIFT. PT HAS BEEN UP INDEPENDENTLY IN ROOM, STEADY ON HER FEET. PT IS MANAGING HER OWN COLOSTOMY BAG, PER HER REQUEST. PT WRITES DOWN MEDICATIONS GIVEN ON HER NOTEPAD WITH TIMES, DATE, AND DOSING. PT WAS FORGETFUL X1 ABOUT THE EVENING MEDICATIONS GIVEN, TOPAMAX AND SEROQUEL. REVIEWED WITH PT THE TIMES THESE MEDICATIONS WERE GIVEN. SHE REVIEWED HER WRITTEN NOTES, BUT WAS LOOKING AT THE INCORRECT DATE, AND REFUSED ASSISTANCE FROM STAFF TO ASSIST WITH FINDING THE CORRECT DATE ON HER NOTEPAD. PT HAS BEEN SLEEPING THROUGHOUT MOST OF THE NIGHT AFTER ROXANOL GIVEN SL. COLOSTOMY BAG IN PLACE, SITE CD&I, SOFT BROWN LIQUID IN COLLECTION BAG. PT HAS ICE CHIPS AT BEDSIDE PER HER REQUEST. CALL LIGHT WITHIN REACH. BED IN LOW POSITION. 2L O2 ON VIA NC, FOR PT COMFORT. WILL CONTINUE TO MONITOR PT UNTIL AM SHIFT CHANGE. PT HAS BEEN COOPERATIVE WITH CARE, OTHER THAT WHAT WAS STATED ABOVE.
--- NOTE | 2022-03-15 17:54 | NUR ---
SHIFT SUMMARY PT A&O X3-4 AND IN PLEASENT MOOD T/O SHIFT. YELLS OUT TO EXPRESS NEEDS @ TIMES. EASILY FRUSTERATED, BUT OVERALL GOOD MOOD. C/O PAIN MEDICATED PER EMAR. MANAGED OWN OSTOMY INDEPENDENTLY THIS SHIFT. CALL LIGHT W/IN REACH. VSS. AWAITING PLACEMENT @ THIS TIME.
--- NOTE | 2022-03-16 05:14 | NUR ---
PT ALERT TO SELF, PLACE AND TIME. NOTED WITH FREQUENT PERIODS OF FORGETFULNESS AND CONFUSION. PT ON 2L NC. PT LIZETH TO SLEEP T/O THE NIGHT. PT VERY AWARE OF MEDICATIONS AND WRITES DOWN NAMES/DOSES WELL VS. PT INDEPENDENT IN ROOM. COLOSTOMY IN PLACE AND PT SELF MANAGES PER PREFRENCE. PT C/O CHRONIC PAIN AND MEDICATED WITH ROXANOL PER OCT.
--- NOTE | 2022-03-16 16:31 | NUR ---
SHIFT SUMMARY PT A&O X3-4, OVERALL GOOD MOOD T/O SHIFT. YELLS OUT @ TIMES TO COMMUNICATE FRUSTRATION. C/O PAIN IN NECK, HIP, AND FEMUR. PAIN MEDS ADJUSTED PER ORDERS, MEDICATED PER EMAR. IND. W/ OSTOMY T/O SHIFT. AMBULATING W/ STEADY GAIT. RA. CALL LIGHT W/IN REACH. PT PREFERS TO WRITE DOWN MEDICATIONS TAKEN.
--- NOTE | 2022-03-17 05:19 | NUR ---
PT OVERNIGHT WITH NO NEW COMPLAINS. PT REPORTS THAT SHE IS VERY PLEASED WITH THE FEMALE DOCTOR WHO SAW HER TODAY AND ADJUSTED HER PAIN MEDICATIONS. PT REPORTS PAIN BEING BETTER CONTROLLED. PT FORGETFUL AND CONFUSED AT TIMES.
--- NOTE | 2022-03-17 17:51 | NUR ---
SHIFT SUMMARY A&O 2-3. PATIENTS MOOD FLIPS CONSTANTLY T/O SHIFT FROM PLEASANT AND COOPERATIVE WITH CARE TO AGITATED, YELLING, CURSING AND THROWING THINGS. INDEPENDENT IN ROOM. ON 2L VIA NC BT FREQUENTLY TAKEN OFF. OSTOMY BAG PRESENT AND DRAINING. C/O PAIN, MEDICATED PER MAR. AWAITING PLACEMENT. WILL CONTINUE TO MONITOR.
--- NOTE | 2022-03-18 04:22 | NUR ---
SHIFT SUMMARY PATIENT HAD NO ACUTE CHANGES OBSERVED. AXOX 2-3 AND INDEPENDENT IN ROOM. NO IV ACCESS. ON 2L O2 NC PRN. SCHEDULE MS CONTIN 15 MG FOR BACK PAIN. DENIES SOB AND N/V. VSS/AFEBRILE. OSTOMY INTACT AND DRAINING. CALL LIGHT IN REACH. BED IN LOWEST POSITION. WILL CONTINUE TO MONITOR UNTIL DAY SHIFT NURSE ASSUMES CARE.
--- NOTE | 2022-03-18 17:20 | NUR ---
SHIFT SUMMARY PATIENT INDEPENDENT IN ROOM. PATIENT EASILY FLIPS FROM PLEASANT AND COOPERATIVE WITH CARE TO AGITATED, YELLING AND CURSING. C/O PAIN, MEDICATED PER MAR. OSTOMY PRESENT AND DRAINING. VSS. NO SIGNIFICANT EVENTS T/O SHIFT. WILL CONTINUE TO MONITOR.
--- NOTE | 2022-03-19 04:11 | NUR ---
SHIFT SUMMARY PATIENT HAD NO ACUTE CHANGES OBSERVED. AXOX 3 AND INDEPENDENT IN ROOM. NO IV ACCESS. DENIES SOB AND N/V. SCHEDULE MS CONTIN 15 MG GIVEN PER EMAR FOR BACK PAIN. VSS/AFEBRILE. OSTOMY RUQ INTACT AND DRAINING. CALL LIGHT IN REACH. BED IN LOWEST POSITION. WILL CONTINUE TO MONITOR UNTIL DAY SHIFT NURSE ASSUMES CARE.
--- NOTE | 2022-03-19 17:32 | NUR ---
SHIFT SUMMARY PATIENT A&OX2-3. INDEPENDENT IN ROOM. OSTOMY BAG PRESENT AND DRAINING. C/O PAIN, MEDICATED PER MAR. PATIENT EASILY AGITATED. VSS. WILL CONTINUE TO MONITOR.
--- NOTE | 2022-03-20 04:07 | NUR ---
SHIFT SUMMARY PATIENT HAD NO ACUTE CHANGES OBSERVED. AXOX 3 AND INDEPENDENT IN THE ROOM. OSTOMY INTACT AND DRAINING. ON 2L 02 NC PRN. NO IV ACCESS. VSS/AFEBRILE. SCHEDULE MS CONTIN 15 MG FOR BACK PAIN. DENIES SOB AND N/V. VSS/AFEBRILE. CALL LIGHT IN REACH. BED IN LOWEST POSITION. WILL CONTINUE TO MONITOR UNTIL DAY SHIFT NURSE ASSUMES CARE.
--- NOTE | 2022-03-20 17:05 | NUR ---
NO ACUTE CHANGES AT THIS TIME. PT CONTINUES TO COOPERATE WITH HER MEDICATION AND CARE. PT HAS TAKEN ALL PER MEDS WITHOUT PROBLEMS. PT MAKES HER NEEDS KNOWN AND HAS CALL LIGHT WITHIN REACH. PAIN IS TREATED PER EMAR.WILL CONTINUE TO MONITOR.
--- NOTE | 2022-03-21 04:46 | NUR ---
SHIFT SUMMARY: A/OX 3, ADLIB IN ROOM AND INDEPENDENT W/ ADL'S & REPOSITIONING IN BED. NO ACUTE CHANGES THROUGHOUT THE NIGHT. BED REMAINS IN LOW POSITION, CALL SU AND BELONGINGS IN REACH. PT CONTINUES TO CALL APPROPRIATELY.
--- NOTE | 2022-03-21 17:37 | NUR ---
SHIFT SUMMARY PT AxOx3-4 WITH FREQUENT FORGETFULNESS AND ERRATIC BEHAVIOR. PT HAD MULTIPLE EPISODES OF EMPTYING OSTOMY BAG AND SPILLING ALL OVER BATHROOM. EVS CALLED FOR PROPER CLEAN UP. PT REFUSED ASSISTANCE WITH COLOSTOMY CARE AND DECLINES CHANGING OUT OF SOILED CLOTHING. PT REPORTS PAIN AT A "9" T/O THIS SHIFT. MEDICATED PER EMAR. PT HAS MOOD SWINGS FROM SWEET AND APPRECIATIVE TO DEMANDING, YELLING AND SLAMMING DOORS. VITALS REVIEWED. PT CURRENTLY AWAITING PLACEMENT. PT IS RESTING IN BED WITH CALL LIGHT IN REACH.
--- NOTE | 2022-03-22 02:55 | NUR ---
SHIFT SUMMARY 67 YR F ADMITTED ON 02/13/22 AND AWAITING PLACEMENT. FULL CODE. NO ACUTE CHANGES THIS SHIFT. PT HAS MOSTLY KEPT TO HERSELF THIS SHIFT. SHE ALWAYS WRITES DOWN WHAT MEDS SHE IS TAKING AND THE DOSAGE, AND SHE GETS ANGRY AND CURSES BECAUSE SHE FEELS THAT HER NARCOTIC DOSAGES SHOULD BE HIGHER. HER ROOM IS MESSY AND SHE REFUSES TO LET ANYONE TIDY UP FOR HER. SHE ALSO WILL NOT LET ANYONE HELP HER WITH OSTOMY CARE. CALL LIGHT IS WITHIN REACH AND BED IS IN LOW POSITION.
--- NOTE | 2022-03-22 18:34 | NUR ---
NO ACUTE CHANGES, PATIENT PLEASANT TODAY, MEDICATED WITH RPN HYDROCODONE/TYLENOL, ALERT TO SELF, VERY CONFUSED AND NON REDIRECTABLE, AGGITATED AT TIMES, NONCOOPERATIVE TO ENVIRONMENTL SERVICES, REFUSES HYGENE, DENIES THAT BM IS SMEARED ON PANTS AND BLANKETS. DNR, AMBULATED IN HALLS, NO IV ACCESS, WILL RELAY TO PM RN, ANNA
--- NOTE | 2022-03-23 05:56 | NUR ---
DIRECTOR OF KNOWLEDGE MANAGEMENT SUMMARY ADMITTED FOR COPD EXACERBATION. PT IS A DNR. SHE IS ON RA. INDEPENDENT IN THE ROOM. REFUSING EXAM. PT VERY PLEASANT WHEN GIVEN PAIN MEDICATION AND COFFEE. SHE IS AWAITING PLACEMENT.
--- NOTE | 2022-03-23 08:00 | NUR ---
Pt angry, demanding, harsh, took her po meds after swearing at this nurse, did allow lovenox shot, call light in reach.
--- NOTE | 2022-03-23 17:09 | NUR ---
Have encouraged pt to take a shower as she needs one, she adimantly refused and states she spit bathed herself. asking for pain meds, will give at 1800. call light in reach.
--- NOTE | 2022-03-23 18:02 | NUR ---
no acute changes this shift. pt seems to do better when pain is controlled, eating dinner, no further needs at this time. call light in reach.
--- NOTE | 2022-03-24 05:18 | NUR ---
SHIFT SUMMARY PATIENT ALERT AND ORIENTED X 2-3. MEDICATED PER EMAR FOR PAIN. NO ACUTE ISSUES NOTED OVERNIGHT. CALL LIGHT WITHIN REACH. REPORT GIVEN TO ONCOMING RN.
--- NOTE | 2022-03-24 09:49 | NUR ---
MS BOWEN HAS BEEN AGGITATED THIS MORNING, RAISED VOICE AND USING A LOT OF SWEAR WORDS. SHE C/O HEADACHE THIS MORNING, REQUESTED MORPHINE AND GIVEN SCHEDULED DOSE. WHEN REASSESSED SHE SAID IT HAD NOT HELPED MY PAIN, AGAIN USED STRONG LANGUAGE TO TELL ME TO LEAVE HER ROOM. SHE DID ALLOW ME TO DO A QUICK ASSESSMENT AND CHANGE THE MEPILEX ON HER LEFT MACIAS THIS MORNING. SHE IS CHANGING HER OWN OSTOMY, DECLINES ASSISTANCE WITH THIS. SHE IS ORIENTATED TO SELF, DATE AND MMC, BUT IT'S DIFFICULT TO HAVE FURTHER CONVERSATION TO ASSESSS FOR CONFUSION.
--- NOTE | 2022-03-24 19:44 | NUR ---
SHIFT SUMMARY MS BOWEN IS ORIENTATED TO SELF, DATE AND LOCATION. SHE HAS ALTERNATED BETWEEN SMILING AND COOPERATIVE AND SWEARING AND AGGITATED THROUGHOUT THE SHIFT. SHE HAS C/O CHRONIC PAIN, SHE SAID SENDY AND MICHELLE ROBLES HELP IT. UP INDEPENDENTLY IN HER ROOM AND BATHROOM. TAKING CARE OF HER OWN OSTOMY. SHE DENIED URINARY CONCERNS. MEPILEX CHANGED TO LEFT MACIAS, AREA IS HEALING. BED LOW, CALL LIGHT IN REACH.
--- NOTE | 2022-03-25 05:55 | NUR ---
SHIFT SUMMARY PATIENT ALERT AND ORIENTED X 2-3. MEDICATED PER EMAR FOR PAIN. HAD NO COMPLAINTS OF SHORTNESS OF BREATH. NO ACUTE ISSUES NOTED OVERNIGHT. CALL LIGHT WITHIN REACH. REPORT GIVEN TO ONCOMING RN.
--- NOTE | 2022-03-25 19:45 | NUR ---
SHIFT SUMMARY MS BOWEN IS ORIENTATED TO SELF, DATE, PLACE. SHE ALTERNATES BETWEEN BEING PLEASANT AND COOPERATIVE AND ANGER AND IRRITABILITY, USING SWEAR LANGUAGE, LOUD VOICE AND SLAMMING HER DOOR. SHE C/O PAIN, ON SCHEDULED MS CONTIN AND TOOK NORCO ONCE THIS SHIFT. SHE TAKES CARE OF HER OWN OSTOMY, DECLINES ANY HELP WITH IT, WAS GIVEN SUPPLIES. SHE REFUSED TO REMOVE HER SHOES FOR ASSESSMENT OF HER FEET. MEPILEX INTACT TO LEFT MACIAS. UP TO BATHROOM INDEPENDENTLY, STEADY GAIT. BED LOW, CALL LIGHT IN REACH.
--- NOTE | 2022-03-26 07:17 | NUR ---
SHIFT SUMMARY: PATIENT HAS A LOW GRADE TEMP. THIS AM AND CONTINUES TO REPORT CHRONIC PAIN, GENERALIZED 05/22. PATIENT SLEPT WELL THROUGH THE SHIFT. SCHEDULED MORPHINE PROVIDED GOOD EFFECT WITH ONE PRN DOSE OF NORCO THIS AM FOR BREALTHROUGH PAIN. PATIENT HAS REFUSED LINEN CHANGE AND COLOSTOMY APPLIANCE CHANGE MULTIPLE TIMES THROUGH THE SHIFT. PATIENT DOES NOT ALLOW STAFF TO CLEAN HER BEDSIDE TABLE. NO ACUTE CHANGES THIS SHIFT.
--- NOTE | 2022-03-26 17:35 | NUR ---
SHIFT SUMMARY MS BOWEN IS ORIENTATED TO SELF, MMC, NOT YEAR "2021 OR 2022". SHE HAS RUQ COLOSTOMY THAT SHE ILL NOT LET STAFF HELP HER TO CARE FOR, BUT SHE IS POOR AT TAKING CARE OF HER OWN HYGEINE NEEDS. SHE WOULDN'T ALLOW HOUSEKEEPING TO CLEAN THE ROOM, REACTED BY SLAMMING THE DOOR, LOUD VOICE AND SWEAR WORDS. SHE ALTERNATED BETWEEN THIS AND CALM COOPERATIVE BEHAVIOUR. SHE SAID SHE HAS A LOT OF PAIN, SEEMS TO BE CONTROLLED ON GIVEN MEDS. MEPILEPrachi MACIAS THAT SHE WOULD NOT ALLOW ME TO CHANGE TODAY. BED LOW, CALL LIGHT IN REACH.
--- NOTE | 2022-03-27 08:11 | NUR ---
SHIFT SUMMARY: PATIENT CONTINUES TO REPORT GENERALIZED PAIN, 10/10 IS THE RATING AT ALL ASSESSMENT. PATIENT HAS GOOD PAIN CONTROL WITH SCHEDULED MS CONTIN AND PRN NORCO. SLEPT WELL THROUGH THE NIGHT. REFUSES ASSISTANCE WITH COLOSTOMY AND CHANGING APPLIANCE. COLOSTOMY IS ACTIVE FOR SOFT BROWN STOOL AND FLATUS.
--- NOTE | 2022-03-27 16:48 | NUR ---
PATIENT DISPLAYS LABILE MOOD. MOST OF THIS SHIFT SHE WAS COOPERATIVE AND IF MOOD WAS FOUL, SHE WAS REDIRECTABLE. COLOSTOMY NOT CHANGED. PATIENT DOESN'T WANT TO ALLOW. ASSESSMENT WAS DONE AND NO NEW FINDINGS.
--- NOTE | 2022-03-27 16:51 | NUR ---
PATIENT WORKED WITH PT THIS SHIFT. HE WAS UP IN HIS CHAIR FOR A TIME. MOOD IS GOOD. PATIENT IS COOPERATIVE AND DENIES PAIN. CONFUSION STILL PRESENT. PLAN IS TO DC TO [facility] SOON (THOUGHT IT MAY HAPPEN TODAY), BUT WAITING FOR ACCEPTANCE.
--- NOTE | 2022-03-28 04:46 | NUR ---
SHIFT SUMMARY A/O 2-3, LABILE MOOD. EASILY AGITATED WHEN STAFF ATTEMPT TO ASSIST WITH CARE. VSS, NO ACUTE CHANGES AT THIS TIME. BED IN LOWEST POSITION WITH CALL LIGHT IN REACH. WILL CONTINUE TO MONITOR AND REPORT TO ONCOMING RN.
--- NOTE | 2022-03-28 15:58 | NUR ---
MOOD IS FOUL. PATIENT DOESN'T ALLOW STAFF TO CARE FOR OSTOMY OR BANDAGES ON LEG. SWEARING AND TELLING STAFF TO GET OUT. NOT ACCEPTING OF COFFEE THAT WAS REQUESTED BECNANDOUE "THE CREAMS ARE RIPPED OPEN" WHEN THEY WERE NOT. PATIENT APPEARS PARANOID. SEROQUEL INCREASE THIS EVENING. MEDICATION ADJUSTMENTS MADE TODAY.
--- NOTE | 2022-03-28 18:53 | NUR ---
PATIENT AGGITATED AND VERBALLY AGGRESSIVE THIS SHIFT. SEROQUEL SCHEDULED AND PRN GIVEN. PATIENT AGAIN DOES NOT ALLOW STAFF TO MANAGE BANDAGE OR COLOSTOMY. DR. MORRELL MADE SOME MEDICATION ADJUSTMENTS TODAY. BEHAVIORS ARE MORE PRONOUNCED WHEN PATIENT IS DENIED SOMETHING SHE WANTS. MOOD IS EXTREAMLY LABILE.
--- NOTE | 2022-03-29 04:25 | NUR ---
SHIFT SUMMARY A/O 2-3, LABILE MOOD. PT REFUSING SKIN ASSESSMENT OR TO LET STAFF TOUCH COLOSTOMY. C/O CHRONIC PAIN, MEDICATED PER EMAR. VSS, NO ACUTE CHANGES AT THIS TIME. BED IN LOWEST POSITION WITH CALL LIGHT IN REACH. WILL CONTINUE TO MONITOR AND REPORT TO ONCOMING RN.
--- NOTE | 2022-03-29 17:03 | NUR ---
SHIFT SUMMARY PT A&OX3 AND MOOD UP AND DOWN. YELLS OUT, EASILY IRRITABLE. C/O PAIN MEDICATED PER EMAR. IND. IN ROOM. REFUSED ASSISTANCE W/ OSTOMY, REFUSED SHOWER/CHANGE OF CLOTHING. CALL LIGHT W/IN REACH. AWAITING PLACEMENT @ THIS TIME.
--- NOTE | 2022-03-30 04:52 | NUR ---
SHIFT SUMMARY 67 YR F ADMITTED SINCE 02/13/22 AND AWAITING PLACEMENT. DNR. PT WAS VERY PLEASANT AND FRIENDLY THIS SHIFT. SHE GOT FRESH COFFE AND IT MADE HER VERY HAPPY. AFTER EVENING MEDS SHE WENT TO BED AND SLEPT FOR MOST OF THE NIGHT. NO ACUTE CHANGES TO REPORT.
--- NOTE | 2022-03-30 16:46 | NUR ---
SHIFT SUMMARY PT A&OX3, MOOD UP AND DOWN T/O SHIFT. CUSSING @ TIMES, PT BASELINE. IND W/ OSTOMY. AMULATING IND. IN ROOM W/ STEADY GAIT. CALL LIGHT W/IN REACH. VSS. PAIN MEDICATED PER EMAR. AWAITING PLACEMENT @ THIS TIME.
--- NOTE | 2022-03-31 02:53 | NUR ---
SHIFT SUMMARY 67 YR F ADMITTED ON 02/13/22 WHO IS WAITING FOR PLACEMENT. DNR. NO ACUTE CHANGES THIS SHIFT. PT WAS GIVEN FRESH, HOT COFFE W/ HER EVENING MEDS AND THIS MADE HER VERY HAPPY. SHE HAPPILY ALLOWED THIS NURSE TO TAKE HER VITALS AND SHE ALLOWED ENVIRONMENTAL SERVICES TO CLEAN THE FLOOR IN HER ROOM. SHE WAS PLEASANT AND COOPERATIVE AND THIS NURSE WAS THANKFUL FOR THAT.
--- NOTE | 2022-03-31 16:25 | NUR ---
PATIENT IS ALERT AND ORIENTED TO SELF, FOLLOWING DIRECTIONS AND PLACE. SHE HAS BEEN COOPERATIVE WITH CARE TODAY. NO AGITATION OR YELLING OUT THIS SHIFT. PAIN HAS BEEN MANAGED TO PATIENT'S SATISFACTION. PATIENT IS INDEPENDENT IN HER ROOM. REFUSES TO CHANGE OUT OF HER OWN CLOTHING AND INTO A CLEAN GOWN. SHE MANAGES HER OWN COLOSTOMY. PATIENT DID ALLOW THIS RN TO CHNAGE HER PILLOW CASE. WILL CONTINUE TO MONITOR
--- NOTE | 2022-04-01 02:38 | NUR ---
SHIFT SUMMARY 67 YR F ADMITTED ON 02/13/22. DNR. NO ACUTE CHANGES THIS SHIFT. PT WAS PLEASANT AND COOPERATIVE THIS SHIFT.
--- NOTE | 2022-04-02 04:49 | NUR ---
SHIFT SUMMARY: NO ACUTE CHANGES THROUHGOUT THE NIGHT. PT REMAINS A/OX3-4, ADLIB IN ROOM AND INDEPENDENT WITH ADL'S & REPOSITIONING. BED IN LOW POSITION, CALL SU AND BELONGINGS IN REACH.
--- NOTE | 2022-04-02 13:29 | NUR ---
12 NOON, Pt was alone in room w door shut. Nobody was in the area at all. suddenly her door opened loudly enough to hear at end of simpson, she screamed fuck, fuck, fuck. Threw 2 coffee cups across the hallway and slammed her door very loud. I was in the pt room next door, her neighbor patient was so startled she almost fell during ambulation. Security was called because she was so agitated and yelling. Nobody had been around her though. RN and I entered her room to ask what was wrong. She was agitated pacing and slammed restroom door, screaming "get the fuck out". As RN spoke to her I decided shes up and so I stripped the bed and all linens that had soil on them. Used interior design teacher wipes to wipe down all hard surfaces. Very very BM coated hand prints on everything so cleaned really well. Pt was very unhappy to witness our fresh linens but we were fast.
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
--- NOTE | 2022-04-03 04:31 | NUR ---
SHIFT SUMMARY: A/OX4, ADLIB IN ROOM, INDEPENDENT WITH ADL'S AND REPOSITIONING IN BED. PATIENT HAS BEEN CALM AND COOPERATIVE TONIGHT. POST ADMINISTRATION OF 2100 SCHEDULED MEDICATIONS PT WAS ABLE TO REST AND SLEEP THROUGHOUT THE NIGHT. NO ACUTE CHANGES THROUGHOUT THE NIGHT. BED IN LOW POSITION CALL SU AND BELONGINGS IN REACH.
--- NOTE | 2022-04-03 18:14 | NUR ---
PATIENT IS ALERT AND ORIENTED X2-3. SHE HAS BEEN AGITATED PERIODICALLY THTOUGHT THE SHIFT AND WILL REFUSE CARE. SHE ALLOWED STAFF TO HELP HER CHANGE HER OSTOMY APPLIANCE TODAY. NO NEW CONCERNS. WILL CONTINUE TO MONITOR
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
--- NOTE | 2022-04-04 18:41 | NUR ---
PATIENT IS ALERT AND ORIENTED AND COOPERATIVE WITH CARE. NO OUTBURSTS OF AGITATION THIS SHIFT. PATIENT TOOK ALL OF HER MEDICATIONS PRESCRIBED. NO NEW CONCERNS. WILL CONTINUE TO MONITOR
--- NOTE | 2022-04-05 05:50 | NUR ---
PT currently seems stable with no severe outpursts or seizure activity. Appetite good VSS & able to care for ileostomy with supervision & some assistance. Cooperative with oral meds.
--- NOTE | 2022-04-05 17:44 | NUR ---
SHIFT SUMMARY PT AxOx4 WITH INTERM FORGETFULNESS AND OCCASIONAL IRRITABLE OUTBURSTS AT TIMES. PT HAD OSTOMY APPLIANCE CHANGED THIS SHIFT. PT CHANGED INTO CLEAN CLOTHES AND ALLOWD RN TO PERFORM SKIN ASSESSMENT THIS SHIFT. SKIN C/D/I WITH SCATTERED SMALL BRUISES/DRY SKIN/HEALING ABRASIONS TO EXTREMITIES. COVID TEST PERFORMED ON PATIENT. PLAN FOR EXPECTED DC TOMORROW TO [facility] IN [place]. PT NOTIFIED AND REACTED ANGRY AT FIRST STATING "IM NOT GOING ANYWHERE. I HAVE A HOME TO GO TO." PT LATER SPOKE WITH REASON ABOUT HER BEING DISCHARGED ASKING QUESTIONS ABOUT THE FACILITY AND HAPPILY LOOKING AT PICTURES OF THE FACILITY. PT IS CURRENTLY SITTING IN BED EATING DINNER. CALL LIGHT IN REACH. DENIES ANY NEEDS AT THIS TIME.
[2022-04-05 18:26] LABS: Influenza A, PCR NEGATIVE (NEGATIVE); Influenza B, PCR NEGATIVE (NEGATIVE); Resp Syncytial Virus, PCR NEGATIVE (NEGATIVE); SARS-Cov-2 (COVID-19) PCR, MMC NEGATIVE (NEGATIVE)
--- NOTE | 2022-04-06 04:58 | NUR ---
PT continues to be more cooperative & less demanding than on admission. Due to dementia & hx of TBI colostomy and chronic pain PT was living in remote area & needed safe dc plan after guardianship obtained. PT has reportedly been accepted to a facility in [facility] for safe and vault service mechanic care. She says she doesn't like [facility] & that she does want to go home versus to facility? Covid 19 inf swab negative. Oral intake good, fluids with excessive coffee use but she does rest after 350 mg seroquel at hs. No seizure activity noted on rx bid. Pain well controlled on Q 12 hr sched oxicontin 10 mg Q 12 hrs. Room air with prn o2 use. Able to care for ostomy needs assist with changing appliances & she has good output. Can be labile but she is much improved from admission with no outpurst noted this shift. Indep in room able to communicate.
[2022-04-06] MEDS ORDERED: FERSU300 PO (11:10)
[2022-04-06] MEDS ORDERED: AIRDUO RESPICL1 EAC4 INH (11:11)
[2022-04-06] MEDS ORDERED: Norco 5-325 Ta1 EACH PO (11:14)
[2022-04-06] MEDS ORDERED: OXYC10ER PO (11:15)
[2022-04-06] MEDS ORDERED: MIRALAX17 GM PO (11:16)
[2022-04-06] MEDS ORDERED: QUET25 PO (11:20)
[2022-04-06] MEDS ORDERED: QUET300 PO (11:21)
--- NOTE | 2022-04-06 17:30 | NUR ---
SHIFT SUMMARY NO ACUTE CHANGES DURING SHIFT. PT ALERT AND ORIENTED, FOLLOWS COMMANDS. PT INDEPENDENT IN ROOM. PT WITH OCASSIONAL OUTBURSTS THROUGHOUT SHIFT. PT SCHEDULED TO D/C TO FACILITY, POSTPONED TIL TOMORROW. CALL LIGHT WITHIN REACH.
--- NOTE | 2022-04-06 21:22 | NUR ---
AT , VISITOR "ROHAN" CAME IN WITH GIFTS/BELONGINGS WHICH SHE WILL USE IN HER NEW FACILITY POST DC TOMORROW. ROHAN SAID SHE WAS A "COURT APPOINTED GUARDIAN" AND WAS HELPING PT TO BE DISCHARGED TOMORROW AM TO [facility]. PT AFFECT CHEERFUL. COOPERATIVE WITH HS MEDS AND ASSESSMENT. CALL LIGHT IN REACH.
--- NOTE | 2022-04-07 03:23 | NUR ---
VICE PRESIDENT MEDICAL AFFAIRS SUMMARY COURT APPOINTED GUARDIAN VISITED LAST EVENING IN PREPARATION FOR SCHEDULED DC TO [facility] IN THE AM. HAS BEEN RESTING QUIETLY WITH FEW INTERRUPTIONS SINCE. CALL LIGHT IN REACH. VSS. NO NOTED S/S ACUTE DISTRESS OF THIS WRITING.
== END 2022-04-07 10:41 | DRG 189 ==
LOC: ER 13:31 → MEDS 22:34 → ER 22:34 → MEDS 22:34 → ER 23:33 → MEDS 23:56
PROVIDERS: Internal Medicine; Student in an Organized Health Care Education/Training Program; ADMIT Internal Medicine
DX: J96.01 Acute respiratory failure with hypoxia (principal); E43 Unspecified severe protein-calorie malnutrition; J44.1 Chronic obstructive pulmonary disease with (acute) exacerbation; Z68.1 Body mass index [BMI] 19.9 or less, adult; R64 Cachexia; E87.0 Hyperosmolality and hypernatremia; J44.0 Chronic obstructive pulmonary disease with (acute) lower respiratory infection; Z66 Do not resuscitate; E83.39 Other disorders of phosphorus metabolism; J20.8 Acute bronchitis due to other specified organisms; Z20.822 Contact with and (suspected) exposure to COVID-19; I10 Essential (primary) hypertension; E87.6 Hypokalemia; E86.0 Dehydration; F01.50 Vascular dementia, unspecified severity, without behavioral disturbance, psychotic disturbance, mood disturbance, and anxiety; D64.9 Anemia, unspecified; G89.29 Other chronic pain; G30.9 Alzheimer's disease, unspecified; F02.80 Dementia in other diseases classified elsewhere, unspecified severity, without behavioral disturbance, psychotic disturbance, mood disturbance, and anxiety; G40.909 Epilepsy, unspecified, not intractable, without status epilepticus; G43.909 Migraine, unspecified, not intractable, without status migrainosus; Z86.73 Personal history of transient ischemic attack (TIA), and cerebral infarction without residual deficits; F17.210 Nicotine dependence, cigarettes, uncomplicated; Z93.2 Ileostomy status; Z87.01 Personal history of pneumonia (recurrent); Z98.51 Tubal ligation status; Z87.820 Personal history of traumatic brain injury; Z90.89 Acquired absence of other organs; Z98.891 History of uterine scar from previous surgery; Z98.890 Other specified postprocedural states; Z88.8 Allergy status to other drugs, medicaments and biological substances; Z79.899 Other long term (current) drug therapy
CPT/HCPCS: 0241U; 36415; 71045; 80053; 80069; 82607; 82728; 82746; 83540; 83550; 83880; 84145; 84443; 84484; 85025; 85027; 87070; 87077; 87185; 87205; 93005; 93010; 94640; 94644; 94664; 94668; 94760; 94761; 94762; 96374; 99285-25; A9270; J0456; J0696; J1650; J2920; J2930; J7030; J7040; J7050; J7060; J7070; J7512